=== PATIENT | female | born 1965 | race American Indian/Alaskan Native ===

== ENCOUNTER 2019-05-12 09:39 | Observation (INO) | payer MEDICAID, OTHER ==
[2019-05-12] MEDS ORDERED: ASPIRIN PO ONE (09:57)
[2019-05-12] MEDS ORDERED: CARDIZEM IV ONE (10:10)
[2019-05-12 10:32] LABS: Basophils % (Auto) 0.9 % (0.0-1.8); Eosinophils # (Auto) 0.2 K/mm3 (0.0-0.4); Eosinophils % (Auto) 3.3 % (0.0-4.3); Hematocrit 41.5 % (30.3-42.9); Hemoglobin 13.7 gm/dl (10.1-14.3); Mean Corpuscular HGB Conc 33 % (30-34); Mean Corpuscular Volume 90 fl (79-97); Monocytes # (Auto) 0.5 K/mm3 (0.0-0.8); Monocytes % (Auto) 8.7 % (0.0-7.3); Platelet Count 307 K/mm3 (140-440); Red Blood Count 4.61 M/mm3 (3.65-5.03); Red Cell Distribution Width 16.3 % (13.2-15.2)
--- NOTE | 2019-05-12 10:34 | Emergency Department Report ---
ED Palpitations HPI - General Chief Complaint: Arrhythmia/Palpitations Stated Complaint: HEART PALPITATION Time Seen by Provider: 05/12/19 10:04 Source: patient Mode of arrival: Ambulatory Limitations: No Limitations - History of Present Illness Initial Comments: Patient is a 53-year-old female with past history of hypertension who was having preop evaluation and [place] for neck surgery and was found to have atrial fibrillation. Patient was told to come to the emergency department yesterday however she wanted to wait it out and see if her symptoms were resolved did not. Patient states the past 2-3 weeks she's had intermittent palpitations. Patie nt's states she's had several episodes where she feels her heart is beating out of her chest and she has some chest tightness. Patient has associated shortness of breath. Denies nausea vomiting fevers chills, cold or congestion. Patient does state that she has palpitations currently. - Related Data Previous Rx's Medication Instructions Recorded Last Taken Type SEROquel 100 mg PO QHS #30 07/17/16 Unknown Rx Wellbutrin 150 mg PO DAILY #30 07/17/16 Unknown Rx diphenhydrAMINE [Benadryl CAP] 25 mg PO QHS PRN #30 capsule 07/17/16 Unknown Rx Allergies Allergy/AdvReac Type Severity Reaction Status Date / Time morphine Allergy Hives Verified 07/14/16 16:26 ED Review of Systems ROS: Stated complaint: HEART PALPITATION Other details as noted in HPI Comment: All other systems reviewed and negative ED Past Medical Hx - Past Medical History Previous Medical History?: Yes Hx Psychiatric Treatment: Yes (bipolar disorder) - Surgical History Past Surgical History?: Yes Additional Surgical History: shoulder - Social History Smoking Status: Never Smoker - Medications Home Medications: Home Medications Medication Instructions Recorded Confirmed Last Taken Type SEROquel 100 mg PO QHS #30 07/17/16 Unknown Rx Wellbutrin 150 mg PO DAILY #30 07/17/16 Unknown Rx diphenhydrAMINE [Benadryl CAP] 25 mg PO QHS PRN #30 capsule 07/17/16 Unknown Rx ED Physical Exam - General Limitations: No Limitations General appearance: alert, in no apparent distress - Head Head exam: Present: atraumatic, normocephalic - Eye Eye exam: Present: normal appearance, PERRL, EOMI - ENT ENT exam: Present: normal orophraynx, mucous membranes moist - Neck Neck exam: Present: normal inspection - Respiratory Respiratory exam: Present: normal lung sounds bilaterally. Absent: respiratory distress, wheezes, rales, rhonchi - Cardiovascular Cardiovascular Exam: Present: tachycardia, irregular rhythm. Absent: systolic murmur, diastolic murmur, rubs, gallop - GI/Abdominal GI/Abdominal exam: Present: soft, normal bowel sounds. Absent: distended, tend erness, guarding, rebound - Extremities Exam Extremities exam: Present: normal inspection - Back Exam Back exam: Present: normal inspection - Neurological Exam Neurological exam: Present: alert, oriented X3 - Psychiatric Psychiatric exam: Present: normal affect, normal mood - Skin Skin exam: Present: warm, dry, intact, normal color. Absent: rash ED Course Vital Signs 05/12/19 05/12/19 05/12/19 09:54 10:12 10:16 Temperature 97.7 F Pulse Rate 126 H Respiratory 18 Rate Blood Pressure 121/78 O2 Sat by Pulse 97 98 Oximetry 05/12/19 05/12/19 05/12/19 10:30 10:46 10:49 Temperature Pulse Rate 132 H 130 H 149 H Respiratory 16 9 L Rate Blood Pressure 116/92 116/92 102/64 O2 Sat by Pulse 98 99 Oximetry 05/12/19 11:00 Temperature Pulse Rate 78 Respiratory 12 Rate Blood Pressure 101/73 O2 Sat by Pulse 95 Oximetry ED Medical Decision Making - Lab Data Result diagrams: 05/12/19 10:05 05/12/19 10:05 Lab Results 05/12/19 05/12/19 05/12/19 Range/Units 10:05 10:05 10:12 WBC 5.4 (4.5-11.0) K/mm3 RBC 4.61 (3.65-5.03) M/mm3 Hgb 13.7 (10.1-14.3) gm/dl Hct 41.5 (30.3-42.9) % MCV 90 (79-97) fl MCH 30 (28-32) pg MCHC 33 (30-34) % RDW 16.3 H (13.2-15.2) % Plt Count 307 (140-440) K/mm3 Lymph % (Auto) 37.0 H (13.4-35.0) % [place] % (Auto) 8.7 H (0.0-7.3) % Eos % (Auto) 3.3 (0.0-4.3) % Baso % (Auto) 0.9 (0.0-1.8) % Lymph # 2.0 (1.2-5.4) K/mm3 [place] # 0.5 (0.0-0.8) K/mm3 Eos # 0.2 (0.0-0.4) K/mm3 Baso # 0.0 (0.0-0.1) K/mm3 Seg Neutrophils % 50.1 (40.0-70.0) % Seg Neutrophils # 2.7 (1.8-7.7) K/mm3 PT 12.4 (12.2-14.9) Sec. INR 0.95 (0.87-1.13) APTT 28.2 (24.2-36.6) Sec. Sodium 141 (137-145) mmol/L Potassium 3.8 (3.6-5.0) mmol/L Chloride 102.2 (98-107) mmol/L Carbon Dioxide 22 (22-30) mmol/L Anion Gap 21 mmol/L BUN 13 (7-17) mg/dL Creatinine 0.7 (0.7-1.2) mg/dL Estimated GFR > 60 ml/min BUN/Creatinine Ratio 19 % Glucose 121 H (65-100) mg/dL Calcium 9.1 (8.4-10.2) mg/dL Troponin T < 0.010 (0.00-0.029) ng/mL NT-Pro-B Natriuret Pep 535.8 (0-900) pg/mL - EKG Data 05/12/19 11:49 EKG shows atrial fibrillation with a rate of 126. [place] is normal intervals are otherwise normal. There are no ST segment elevations or depressions. Time of interpretation is not 52. - Radiology Data Radiology results: report reviewed (CXR WNL) - Medical Decision Making Patient is a 53-year-old black female who is presenting with palpitations. The patient was found to be in A. fib with RVR. Patient was given 20 of diltiazem which did drop her rate to between 80 and 100. Patient does state that her shortness of breath and palpitations do feel better. Spoke with up at [facility] with heart and they state that the patient should be admitted for observation to continue with rate control with oral diltiazem. Patient will be admitted to the hospitalist service under Dr. Sim. Critical Care Time: Yes (30) Critical care attestation.: If time is entered above; I have spent that time in minutes in the direct care of this critically ill patient, excluding procedure time. ED Disposition Clinical Impression: Atrial fibrillation with rapid ventricular response Disposition: OP ADMIT IP TO THIS HOSP Is pt being admited?: Yes Does the pt Need Aspirin: No Condition: Stable Time of Disposition: 11:54
--- NOTE | 2019-05-12 10:41 | XRay Report ---
CHEST 1 VIEW INDICATION: Chest Pain COMPARISON: None FINDINGS: Support devices: None Heart: Normal Lungs/Pleura: No acute pulmonary or pleural findings. IMPRESSION: 1. No significant abnormality Signer Name: Oumar Chou MD Signed: 05/12/2019 10:37 AM Workstation Name: [id number]
[2019-05-12 10:50] LABS: INR 0.95 (0.87-1.13); Partial Thromboplastin Time 28.2 Sec. (24.2-36.6)
[2019-05-12 11:02] LABS: BUN/Creatinine Ratio 19; Blood Urea Nitrogen 13 mg/dL (7-17); Calcium 9.1 mg/dL (8.4-10.2); Hemolysis Index 70
--- NOTE | 2019-05-12 12:04 | History and Physical Report ---
History of Present Illness Chief complaint: My heart is pounding History of present illness: 53 YO Female with Obesity, Bipolar Disorder presents to ED for evaluation. Pt states that she has experienced approximately 12 intermittent episodes of chest palpitations over the past 2 weeks as well as shortness of breath. Pt states that she was having preop evaluation and [place] for neck surgery and was found to have atrial fibrillation. Patient was instructed to seek further care at that time. Pt states that her symptoms have persisted and become more frequent overnight. Pt transported to [facility] via private vehicle. Pt transported to [facility] via private vehicle. Pt seen and evaluated in ED and found to have Atrial Fib with RVR as well as obesity Hypoventilation Syndrome. Pt admitted to telemetry. Cardiology consulted in ED. Pt denies fever, chills, CP, NVD, Trauma, Productive cough, skin rash, or recent ill contacts. No prior admission for review. All medication listed at time of admission has been reconciled. Past History Past Medical History: other (Obesity, bipolar disorder.) Past Surgical History: Other (Shoulder surgery) Social history: . denies: smoking, alcohol abuse, prescription drug abuse Family history: hypertension Medications and Allergies Allergies Allergy/AdvReac Type Severity Reaction Status Date / Time morphine Allergy Hives Verified 07/14/16 16:26 Home Medications Medication Instructions Recorded Confirmed Last Taken Type SEROquel 100 mg PO QHS #30 07/17/16 Unknown Rx Wellbutrin 150 mg PO DAILY #30 07/17/16 Unknown Rx diphenhydrAMINE [Benadryl CAP] 25 mg PO QHS PRN #30 capsule 07/17/16 Unknown Rx Active Meds: Active Medications Diltiazem HCl (Cardizem) 60 mg PO Q6HR DEMI Review of Systems Constitutional: no weight loss, no weight gain, no fever, no chills Ears, nose, mouth and throat: no ear pain, no ear discharge, no tinnitis, no decreased hearing, no nose pain, no nasal congestion, no nasal discharge Breasts: no change in shape, no mass Cardiovascular: palpitations, shortness of breath, no chest pain, no syncope, no lightheadedness, no claudication, no leg edema Respiratory: no cough, no cough with sputum, no excessive sputum, no hemoptysis, no shortness of breath Gastrointestinal: no nausea, no vomiting, no diarrhea, no constipation Genitourinary Female: no pelvic pain, no flank pain, no menorrhagia, no dysuria Rectal: no pain, no incontinence, no bleeding Musculoskeletal: no neck stiffness, no neck pain, no shooting arm pain, no arm numbness/tingling, no low back pain Integumentary: no rash, no pruritis, no sores, no wounds, no jaundice, no bliste rs Neurological: no head injury, no paralysis, no weakness, no parathesias, no numbness, no tingling, no syncope Psychiatric: no anxiety, no memory loss, no change in sleep habits, no sleep disturbances, no insomnia Endocrine: no cold intolerance, no heat intolerance, no polyphagia, no excessive thirst, no polydipsia, no polyuria, no nocturia Hematologic/Lymphatic: no easy bruising, no easy bleeding, no lymphadenopathy Allergic/Immunologic: no urticaria, no allergic rhinitis, no wheezing, no persistent infections, no anaphylaxis Exam - Constitutional Vitals: Temp Pulse Resp BP Pulse Ox 97.7 F 78 12 101/73 95 05/12/19 09:54 05/12/19 11:00 05/12/19 11:00 05/12/19 11:00 05/12/19 11:00 General appearance: Present: mild distress - EENT Eyes: Present: PERRL ENT: hearing intact, clear oral mucosa - Neck Neck: Present: supple, normal ROM - Respiratory Respiratory effort: normal Respiratory: bilateral: CTA - Cardiovascular Rhythm: irregularly irregular Heart Sounds: Present: S1 & S2. Absent: rub, click - Extremities Extremities: pulses symmetrical, No edema Peripheral Pulses: within normal limits - Abdominal General gastrointestinal: Present: soft, non-tender, non-distended, normal bowel sounds Female genitourinary: Present: normal - Integumentary Integumentary: Present: clear, warm, dry - Musculoskeletal Musculoskeletal: gait normal, strength equal bilaterally - Psychiatric Psychiatric: appropriate mood/affect, intact judgment & insight - Neurologic Neurologic: CNII-XII intact, moves all extremities Results - Labs CBC & Chem 7: 05/12/19 10:05 05/12/19 10:05 Labs: Abnormal lab results 05/12/19 05/12/19 Range/Units 10:05 10:05 RDW 16.3 H (13.2-15.2) % Lymph % (Auto) 37.0 H (13.4-35.0) % [place] % (Auto) 8.7 H (0.0-7.3) % Glucose 121 H (65-100) mg/dL Assessment and Plan - Patient Problems (1) Atrial fibrillation with rapid ventricular response Current Visit: No Status: Acute Plan to address problem: Cardiology consulted in ED, rate control with cardizem, supportive care. admit to telemetry. Anticoagulation as per cardiology team. (2) Obesity hypoventilation syndrome Current Visit: Yes Status: Acute Plan to address problem: Supplemental oxygen, nebulizer therapy, NIPPV as clinically indicated. pulse oximetry, (3) Bipolar disorder Current Visit: Yes Status: Acute Qualifiers: Current episode severity: unspecified Plan to address problem: Supportive care, continue medical management. (4) DVT prophylaxis Current Visit: Yes Status: Acute Plan to address problem: SCD to BLE while in bed, supportive care.
[2019-05-12] MEDS ORDERED: ZOFRAN IV PRN (12:05)
[2019-05-12] MEDS ORDERED: SODIUM CHLORIDE FLUSH SYRINGE 10 ML IV PRN (12:05)
[2019-05-12] MEDS ORDERED: TYLENOL PO PRN (12:05)
[2019-05-12] MEDS ORDERED: PROVENTIL IH PRN (12:05)
[2019-05-12] MEDS ORDERED: BENADRYL PO PRN (12:08)
[2019-05-12 13:01] LABS: Free T4 (Free Thyroxine) 1.19 ng/dL (0.76-1.46)
[2019-05-12] MEDS: CARDIZEM PO SCH ×2 (13:23→18:04)
[2019-05-12] MEDS ORDERED: CARDIZEM ONE (13:25)
[2019-05-12] MEDS: SODIUM CHLORIDE FLUSH SYRINGE 10 ML IV SCH (21:46)
[2019-05-12] MEDS ORDERED: NON-FORMULARY (Seroquel 100 MG) PO SCH (22:00)
[2019-05-13] MEDS: CARDIZEM PO SCH ×2 (00:12→06:28)
[2019-05-13 06:04] LABS: Basophils # (Auto) 0.1 K/mm3 (0.0-0.1); Basophils % (Auto) 1.3 % (0.0-1.8); Eosinophils # (Auto) 0.2 K/mm3 (0.0-0.4); Eosinophils % (Auto) 3.4 % (0.0-4.3); Hematocrit 38.9 % (30.3-42.9); Hemoglobin 12.7 gm/dl (10.1-14.3); Lymphocytes # (Auto) 1.5 K/mm3 (1.2-5.4); Lymphocytes % (Auto) 31.7 % (13.4-35.0); Mean Corpuscular HGB Conc 33 % (30-34); Mean Corpuscular Volume 90 fl (79-97); Monocytes # (Auto) 0.3 K/mm3 (0.0-0.8); Monocytes % (Auto) 7.3 % (0.0-7.3); Platelet Count 257 K/mm3 (140-440); Red Blood Count 4.33 M/mm3 (3.65-5.03); Red Cell Distribution Width 16.1 % (13.2-15.2)
[2019-05-13 06:10] LABS: Alanine Aminotransferase 25 units/L (7-56); Albumin 3.5 g/dL (3.9-5); BUN/Creatinine Ratio 18; Blood Urea Nitrogen 11 mg/dL (7-17); Calcium 8.9 mg/dL (8.4-10.2); Hemolysis Index 13
--- NOTE | 2019-05-13 07:58 | Progress Note ---
Assessment and Plan Assessment and plan: 53 YO Female with Obesity, Bipolar Disorder presents to ED for evaluation. Pt states that she has experienced approximately 12 intermittent episodes of chest palpitations over the past 2 weeks as well as shortness of breath. Pt states that she was having preop evaluation and [place] for neck surgery and was found to have atrial fibrillation. Patient was instructed to seek further care at that time. Pt states that her symptoms have persisted and become more frequent overnight. Pt transported to [facility] via private vehicle. Pt transported to [facility] via private vehicle. Pt seen and evaluated in ED and found to have Atrial Fib with RVR as well as obesity Hypoventilation Syndrome. Pt admitted to telemetry. Ca rdiology consulted in ED. Pt denies fever, chills, CP, NVD, Trauma, Productive cough, skin rash, or recent ill contacts. No prior admission for review. All medication listed at time of admission has been reconciled. chest xray is negative Atrial fibrillation with rapid ventricular response * Initiated on cardizem from ER, will increase to 90mg q8hr for better control * Await Cardiology input, obtain Echo. * Defer Anticoagulation to cardiology. Dyspnea * Secondary to Afib. Obesity hypoventilation syndrome * Supplemental oxygen, nebulizer therapy, NIPPV as clinically indicated. pulse oximetry, Bipolar disorder * Supportive care, continue medical management. DVT/GI prophylaxis/Mobility Protocol Current Visit: Yes Status: Acute Plan to address problem: SCD to BLE while in bed, supportive care. 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 Patient with no new complaints today Hospitalist Physical - Constitutional Vitals: Temp Pulse Resp BP Pulse Ox 97.5 F L 105 H 20 110/68 98 05/13/19 05:11 05/13/19 06:28 05/13/19 05:11 05/13/19 06:28 05/13/19 05:11 General appearance: Present: no acute distress, well-nourished, obese - EENT Eyes: Present: PERRL, EOM intact ENT: clear oral mucosa, dentition normal - Neck Neck: Present: supple, normal ROM - Respiratory Respiratory effort: normal Respiratory: bilateral: CTA - Cardiovascular Rhythm: irregularly irregular Heart Sounds: Present: S1 & S2. Absent: systolic murmur, diastolic murmur - Extremities Extremities: no ischemia, pulses intact, pulses symmetrical, No edema, normal temperature, normal color, Full ROM Peripheral Pulses: within normal limits - Abdominal General gastrointestinal: soft, non-tender, non-distended, normal bowel sounds - Integumentary Integumentary: Present: warm (MULTIPLE TATTOO), dry - Psychiatric Psychiatric: appropriate mood/affect, intact judgment & insight, memory intact, cooperative - Neurologic Neurologic: CNII-XII intact, moves all extremities - Allied Health Allied health notes reviewed: nursing Results - Labs CBC & Chem 7: 05/13/19 05:16 05/13/19 05:16 Labs: Laboratory Last Values WBC 4.6 K/mm3 (4.5-11.0) 05/13/19 05:16 RBC 4.33 M/mm3 (3.65-5.03) 05/13/19 05:16 Hgb 12.7 gm/dl (10.1-14.3) 05/13/19 05:16 Hct 38.9 % (30.3-42.9) 05/13/19 05:16 MCV 90 fl (79-97) 05/13/19 05:16 MCH 29 pg (28-32) 05/13/19 05:16 MCHC 33 % (30-34) 05/13/19 05:16 RDW 16.1 % (13.2-15.2) H 05/13/19 05:16 Plt Count 257 K/mm3 (140-440) 05/13/19 05:16 Lymph % (Auto) 31.7 % (13.4-35.0) 05/13/19 05:16 [place] % (Auto) 7.3 % (0.0-7.3) 05/13/19 05:16 Eos % (Auto) 3.4 % (0.0-4.3) 05/13/19 05:16 Baso % (Auto) 1.3 % (0.0-1.8) 05/13/19 05:16 Lymph # 1.5 K/mm3 (1.2-5.4) 05/13/19 05:16 [place] # 0.3 K/mm3 (0.0-0.8) 05/13/19 05:16 Eos # 0.2 K/mm3 (0.0-0.4) 05/13/19 05:16 Baso # 0.1 K/mm3 (0.0-0.1) 05/13/19 05:16 Seg Neutrophils % 56.3 % (40.0-70.0) 05/13/19 05:16 Seg Neutrophils # 2.6 K/mm3 (1.8-7.7) 05/13/19 05:16 PT 12.4 Sec. (12.2-14.9) 05/12/19 10:12 INR 0.95 (0.87-1.13) 05/12/19 10:12 APTT 28.2 Sec. (24.2-36.6) 05/12/19 10:12 Sodium 141 mmol/L (137-145) 05/13/19 05:16 Potassium 3.4 mmol/L (3.6-5.0) L 05/13/19 05:16 Chloride 104.0 mmol/L (98-107) 05/13/19 05:16 Carbon Dioxide 25 mmol/L (22-30) 05/13/19 05:16 15 mmol/L 05/13/19 05:16 BUN 11 mg/dL (7-17) 05/13/19 05:16 0.6 mg/dL (0.7-1.2) L 05/13/19 05:16 Estimated GFR > 60 ml/min 05/13/19 05:16 18 % 05/13/19 05:16 Glucose 129 mg/dL (65-100) H 05/13/19 05:16 Calcium 8.9 mg/dL (8.4-10.2) 05/13/19 05:16 Magnesium 2.10 mg/dL (1.7-2.3) 05/12/19 10:02 0.20 mg/dL (0.1-1.2) 05/13/19 05:16 AST 25 units/L (5-40) 05/13/19 05:16 ALT 25 units/L (7-56) 05/13/19 05:16 71 units/L (35-129) 05/13/19 05:16 < 0.010 ng/mL (0.00-0.029) 05/12/19 15:07 NT-Pro-B Natriuret Pep 535.8 pg/mL (0-900) 05/12/19 10:05 6.8 g/dL (6.3-8.2) 05/13/19 05:16 3.5 g/dL (3.9-5) L 05/13/19 05:16 1.1 % 05/13/19 05:16 TSH 2.490 mlU/mL (0.270-4.200) 05/12/19 12:14 Free T4 1.19 ng/dL (0.76-1.46) 05/12/19 12:14 Active Medications - Current Medications Current Medications: Generic Name Dose Route Start Last Admin Trade Name Freq PRN Reason Stop Dose Admin Acetaminophen 650 mg 05/12/19 12:05 Tylenol PO Q4H PRN Pain MILD(1-3)/Fever >100.5/[place] Albuterol 2.5 mg 05/12/19 12:05 Proventil IH Q4HRT PRN Shortness Of Breath Bupropion HCl 150 mg 05/13/19 10:00 Wellbutrin Xl PO QDAY DEMI Diltiazem HCl 90 mg 05/13/19 08:00 Cardizem PO Q8H DEMI Diphenhydramine HCl 25 mg 05/12/19 12:08 Benadryl PO QHS PRN Insomnia Ondansetron HCl 4 mg 05/12/19 12:05 Zofran IV Q8H PRN Nausea And Vomiting Quetiapine Fumarate 100 mg 05/12/19 22:00 05/12/19 21:46 Seroquel PO 100 mg QHS DEMI Administration Sodium Chloride 10 ml 05/12/19 22:00 05/12/19 21:46 Sodium Chloride Flush Syringe 10 Ml IV 10 ml BID DEMI Administration Sodium Chloride 10 ml 05/12/19 12:05 Sodium Chloride Flush Syringe 10 Ml IV PRN PRN LINE FLUSH
[2019-05-13] MEDS ORDERED: CARDIZEM PO SCH ×3 (08:00→14:00)
[2019-05-13] MEDS ORDERED: K-DUR PO ONE (09:11)
[2019-05-13] MEDS ORDERED: CARDIZEM PO NR (09:26)
[2019-05-13] MEDS ORDERED: K-DUR PO NR (09:26)
[2019-05-13] MEDS ORDERED: K-DUR PO SCH (10:00)
[2019-05-13] MEDS ORDERED: WELLBUTRIN XL PO SCH (10:00)
[2019-05-13] MEDS ORDERED: WELLBUTRIN 150 MG PO SCH (10:00)
[2019-05-13] MEDS: SODIUM CHLORIDE FLUSH SYRINGE 10 ML IV SCH (11:42)
[2019-05-13 13:36] VITALS: BP 139/81
--- NOTE | 2019-05-13 13:52 | Discharge Summary ---
Providers - Providers Date of Admission: 05/12/19 12:05 Attending physician: MARCIN FINCH MD 05/12/19 12:01 Consult to Physician [CONS] Urgent Comment: Consulting Provider: ARIADNA YANEZ Physician Instructions: Reason For Exam: afib with RVR [facility] Condition: Stable Exam - Constitutional Vitals: Temp Pulse Resp BP Pulse Ox 98.2 F 92 H 50 H 139/81 98 05/13/19 12:56 05/13/19 13:00 05/13/19 12:56 05/13/19 12:56 05/13/19 12:56 Plan Follow up with: ARIADNA YANEZ MD [Staff Physician] - 7 Days WASHINGTON MORENO ESCOTO MD [Primary Care Provider] - 7 Days Prescriptions: Diltiazem HCl [Cardizem Cd] 300 mg PO DAILY #30 cap.er.24h Apixaban [Eliquis] 5 mg PO BID #60 tablet QUEtiapine [SEROquel] 100 mg PO QDAY #30 tab buPROPion XL [Wellbutrin Xl] 150 mg PO QAM #30 tab.er.24h
--- NOTE | 2019-05-13 13:54 | Consultation ---
History of Present Illness Consult date: 05/13/19 Consult reason: atrial fibrillation History of present illness: Impression Post-op Afib, symptomatic now improved no prior history of cardiomyopathy HTN Plan HR controlled on diltiazem, she is now asymptomatic Echo EF >55% , no significant valvular disease recommend cont diltiazem replete K for hypokalemia start eliquis for anticoagulation ok to go home f/u 2 weeks Past History Past Medical History: hypertension, other (Obesity, bipolar disorder.) Past Surgical History: Other (Shoulder surgery) Social history: . denies: smoking, alcohol abuse, prescription drug abuse Family history: hypertension Medications and Allergies Allergies Allergy/AdvReac Type Severity Reaction Status Date / Time morphine Allergy Hives Verified 07/14/16 16:26 Home Medications Medication Instructions Recorded Confirmed Last Taken Type oxyCODONE /ACETAMINOPHEN 5 mg PO 05/12/19 05/06/19 08:00 History Apixaban [Eliquis] 5 mg PO Q12HR #30 tablet 05/13/19 Unknown Rx Diltiazem HCl [Cardizem Cd] 300 mg PO DAILY #30 cap.er.24h 05/13/19 Unknown Rx QUEtiapine [SEROquel] 100 mg PO QHS tablet 05/13/19 Unknown Rx buPROPion XL [Wellbutrin XL] 150 mg PO QDAY tablet 05/13/19 Unknown Rx diphenhydrAMINE [Benadryl CAP] 25 mg PO QHS PRN capsule 05/13/19 Unknown Rx Active Meds: Active Medications Acetaminophen (Tylenol) 650 mg PO Q4H PRN PRN Reason: Pain MILD(1-3)/Fever >100.5/[place] Albuterol (Proventil) 2.5 mg IH Q4HRT PRN PRN Reason: Shortness Of Breath Apixaban (Eliquis) 5 mg PO Q12HR DEMI; Protocol Bupropion HCl (Wellbutrin Xl) 150 mg PO QDAY DEMI Last Admin: 05/13/19 11:40 Dose: 150 mg Documented by: Diltiazem HCl (Cardizem) 90 mg PO Q8H DEMI Last Admin: 05/13/19 09:48 Dose: 90 mg Documented by: Diphenhydramine HCl (Benadryl) 25 mg PO QHS PRN PRN Reason: Insomnia Ondansetron HCl (Zofran) 4 mg IV Q8H PRN PRN Reason: Nausea And Vomiting Quetiapine Fumarate (Seroquel) 100 mg PO QHS [facility] Last Admin: 05/12/19 21:46 Dose: 100 mg Documented by: Sodium Chloride (Sodium Chloride Flush Syringe 10 Ml) 10 ml IV BID [facility] Last Admin: 05/13/19 11:42 Dose: 10 ml Documented by: Sodium Chloride (Sodium Chloride Flush Syringe 10 Ml) 10 ml IV PRN PRN PRN Reason: LINE FLUSH Physical Examination Vital Signs Temp Pulse Resp BP 97.7 F 126 H 18 121/78 05/12/19 09:54 05/12/19 09:54 05/12/19 09:54 05/12/19 09:54 General appearance: no acute distress HEENT: Positive: PERRL Neck: Positive: neck supple Cardiac: Positive: S1/S2 Lungs: Positive: Normal Exam Abdomen: Positive: Unremarkable Extremities: Absent: edema Results 05/13/19 05:16 05/13/19 05:16 Cardiac Enzymes 05/13/19 Range/Units 05:16 AST 25 (5-40) units/L CBC 05/13/19 Range/Units 05:16 WBC 4.6 (4.5-11.0) K/mm3 RBC 4.33 (3.65-5.03) M/mm3 Hgb 12.7 (10.1-14.3) gm/dl Hct 38.9 (30.3-42.9) % Plt Count 257 (140-440) K/mm3 Lymph # 1.5 (1.2-5.4) K/mm3 [place] # 0.3 (0.0-0.8) K/mm3 Eos # 0.2 (0.0-0.4) K/mm3 Baso # 0.1 (0.0-0.1) K/mm3 Comprehensive Metabolic Panel 05/13/19 Range/Units 05:16 Sodium 141 (137-145) mmol/L Potassium 3.4 L (3.6-5.0) mmol/L Chloride 104.0 (98-107) mmol/L Carbon Dioxide 25 (22-30) mmol/L BUN 11 (7-17) mg/dL Creatinine 0.6 L (0.7-1.2) mg/dL Glucose 129 H (65-100) mg/dL Calcium 8.9 (8.4-10.2) mg/dL AST 25 (5-40) units/L ALT 25 (7-56) units/L Alkaline Phosphatase 71 (35-129) units/L Total Protein 6.8 (6.3-8.2) g/dL Albumin 3.5 L (3.9-5) g/dL
[2019-05-13] MEDS ORDERED: ELIQUIS PO SCH (15:00)
== END 2019-05-13 15:00 | disposition home or self-care (01) ==
LOC: ED 09:39 → 4A 12:05
PROVIDERS: ADMIT Internal Medicine; ATTEND Internal Medicine
DX: I48.2 Chronic atrial fibrillation (principal); R06.00 Dyspnea, unspecified; E66.2 Morbid (severe) obesity with alveolar hypoventilation; F31.9 Bipolar disorder, unspecified; I10 Essential (primary) hypertension; Z68.39 Body mass index [BMI] 39.0-39.9, adult
CPT/HCPCS: 36415; 71045; 80048; 80053; 83735; 83880; 84439; 84443; 84484; 85025; 85610; 85730; 93005; 93010; 93306; 94640; 96374; 99291; G0378

== ENCOUNTER 2021-09-15 14:13 | Emergency (ER) | payer MEDICAID | END 2021-09-15 16:30 | disposition left against medical advice (07) | LOC: ED 14:13 | DX: M54.50 Low back pain, unspecified (principal); Z53.21 Procedure and treatment not carried out due to patient leaving prior to being seen by health care provider ==

== ENCOUNTER 2022-02-13 18:50 | Inpatient (IN) | payer MEDICARE ==
[2022-02-13] MEDS ORDERED: fentaNYL 100 MCG/2 ML INJ IV ONE (19:09)
[2022-02-13] MEDS ORDERED: ASPIRIN 325 MG TAB PO ONE (19:09)
[2022-02-13] MEDS ORDERED: NITROGLYCERIN 2% OINT 1 GM TP ONE (19:09)
[2022-02-13] MEDS ORDERED: ONDANSETRON 4 MG/2 ML INJ IV ONE (19:09)
--- NOTE | 2022-02-13 19:31 | Emergency Department Report ---
HPI - HPI HPI: Room 7 The patient is a 56-year-old female present with chief complaint of chest pain. Patient states approximate 40 prior to arrival she developed substernal chest pain described as a tightness associated with some shortness of breath. Patient denies nausea/vomiting or diaphoresis. Patient currently gives her pain a score of 10/10. Patient states her last stress test occurred approximate 2 years ago but she has never had a cardiac catheterization. Patient states she has currently on any anticoagulation <SORAYA LONG - Last Filed: 02/13/22 20:16> <FELECIA TOSCANO - Last Filed: 02/13/22 21:45> - General Chief Complaint: Chest Pain ED Past Medical Hx - Past Medical History Hx Diabetes: Yes Hx Psychiatric Treatment: Yes (bipolar disorder) Hx Asthma: Yes Additional medical history: Atrial fibrillation - Surgical History Additional Surgical History: shoulder - Family History Family history: no significant - Social History Smoking Status: Never Smoker Substance Use Type: None <SORAYA LONG - Last Filed: 02/13/22 20:16> <FELECIA TOSCANO - Last Filed: 02/13/22 21:45> - Medications Home Medications: Home Medications Medication Instructions Recorded Confirmed Last Taken Type oxyCODONE /ACETAMINOPHEN 5 mg PO 05/12/19 05/06/19 08:00 History Apixaban [Eliquis] 5 mg PO BID #60 tablet 05/13/19 Unknown Rx Diltiazem HCl [Cardizem Cd] 300 mg PO DAILY #30 cap.er.24h 05/13/19 Unknown Rx QUEtiapine [SEROquel] 100 mg PO QDAY #30 tab 05/13/19 Unknown Rx buPROPion XL [Wellbutrin Xl] 150 mg PO QAM #30 tab.er.24h 05/13/19 Unknown Rx diphenhydrAMINE [Benadryl CAP] 25 mg PO QHS PRN capsule 05/13/19 Unknown Rx ED Review of Systems ROS: Stated complaint: CHEST PAINS Other details as noted in HPI Constitutional: denies: diaphoresis Eyes: denies: eye pain ENT: denies: throat pain Respiratory: shortness of breath Cardiovascular: chest pain Endocrine: no symptoms reported Gastrointestinal: denies: nausea, vomiting Genitourinary: denies: dysuria Musculoskeletal: denies: back pain Neurological: denies: headache <APRILBoogieSORAYA Alex - Last Filed: 02/13/22 20:16> ROS: Stated complaint: CHEST PAINS Other details as noted in HPI <FELECIA TOSCANO - Last Filed: 02/13/22 21:45> Physical Exam - Physical Exam Vital Signs: Vital Signs 02/13/22 19:03 Temperature 97.3 F L Pulse Rate 64 Respiratory 22 Rate Blood Pressure 121/84 [Right] O2 Sat by Pulse 97 Oximetry Physical Exam: GENERAL: The patient is well-developed well-nourished female sitting in chair appearing to be in moderate discomfort. [] HEENT: Normocephalic. Atraumatic. Extraocular motions are intact. Patient has moist mucous membranes. NECK: Supple. Trachea midline CHEST/LUNGS: Clear to auscultation. There is no respiratory distress noted. HEART/CARDIOVASCULAR: Regular. There is no tachycardia. There is no gallop rub or murmur. ABDOMEN: Abdomen is soft, nontender. Patient has normal bowel sounds. There is no abdominal distention. SKIN: There is no rash. There is no edema. There is no diaphoresis. NEURO: The patient is awake, alert, and oriented. The patient is cooperative. The patient has no focal neurologic deficits. The patient has normal speech. GCS 15 MUSCULOSKELETAL: There is no evidence of acute injury. <APRILBoogieSORAYA Alex - Last Filed: 02/13/22 20:16> - Physical Exam Vital Signs: Vital Signs 02/13/22 02/13/22 02/13/22 19:03 20:01 20:02 Temperature 97.3 F L Pulse Rate 64 63 68 Respiratory 22 20 Rate Blood Pressure 122/72 85/56 Blood Pressure 121/84 [Right] O2 Sat by Pulse 97 97 Oximetry 02/13/22 20:57 Temperature 98 F Pulse Rate 72 Respiratory Rate Blood Pressure Blood Pressure 100/67 [Right] O2 Sat by Pulse Oximetry <FELECIA TOSCANO - Last Filed: 02/13/22 21:45> ED Course Vital Signs 02/13/22 19:03 Temperature 97.3 F L Pulse Rate 64 Respiratory 22 Rate Blood Pressure 121/84 [Right] O2 Sat by Pulse 97 Oximetry - Consultations Consultation #1: 02/13/22 19:30 EKG sent to and discussed with group art supervisor Dr. Ramos- No Stemi. Bring patient back to a room and medicate, repeat EKG and see if there is any change 02/13/22 20:08 Repeat EKG sent to and discussed with group art supervisor Dr. Ramos-we will treat for ACS with failure medical treatment. Have nursing supervisorcall in the Cath team for stat cardiac catheterization, initiate heparin <SORAYA LONG - Last Filed: 02/13/22 20:16> Vital Signs 02/13/22 02/13/22 02/13/22 19:03 20:01 20:02 Temperature 97.3 F L Pulse Rate 64 63 68 Respiratory 22 20 Rate Blood Pressure 122/72 85/56 Blood Pressure 121/84 [Right] O2 Sat by Pulse 97 97 Oximetry 02/13/22 20:57 Temperature 98 F Pulse Rate 72 Respiratory Rate Blood Pressure Blood Pressure 100/67 [Right] O2 Sat by Pulse Oximetry <FELECIA TOSCANO - Last Filed: 02/13/22 21:45> ED Medical Decision Making - Lab Data Result diagrams: 02/13/22 19:18 02/13/22 19:18 - EKG Data -: EKG Interpreted by Me EKG shows normal: sinus rhythm Rate: normal - EKG Data When compared to previous EKG there are: previous EKG unavailable - Radiology Data Radiology results: report reviewed (Chest x-ray), image reviewed (Chest x-ray) interpreted by me: Chest x-ray-no definite focal infiltrates, no pneumothorax [address] [address] XRay Report Signed Patient: LIBRADO ENRIQUEZ MR#: [id number] : 1965 Acct:[id number] Age/Sex: 56 / F ADM Date: 02/13/22 Loc: ED Attending Dr: Ordering Physician: SORAYA LONG MD Date of Service: 02/13/22 Procedure(s): XR chest 1V ap Accession Number(s): [id number] cc: SORAYA LONG MD Fluoro Time In Minutes: CHEST 1 VIEW INDICATION / CLINICAL INFORMATION: chest pain. COMPARISON: 05/12/2019 FINDINGS: SUPPORT DEVICES: None. HEART / MEDIASTINUM: No significant abnormality. LUNGS / PLEURA: No significant pulmonary or pleural abnormality. No pneumothorax. ADDITIONAL FINDINGS: No significant additional findings. IMPRESSION: 1. No acute findings. Signer Name: Sedrick Navarrete MD Signed: 02/03 7:52 PM Workstation Name: [id number] Transcribed By: SB Dictated By: SEDRICK NAVARRETE MD Electronically Authenticated By: SEDRICK NAVARRETE MD Signed Date/Time: 02/13/221951 DD/ 51 TD/TT: - Differential Diagnosis ACS, pericarditis, GERD <SORAYA LONG - Last Filed: 02/13/22 20:16> - Lab Data Result diagrams: 02/13/22 19:18 02/13/22 19:18 - Medical Decision Making Patient is in the [facility]illing Plan[facility] Operator now. I discussed the patient with Dr. Yee, he agreed to admit the patient to medical service for further management. <FELECIA TOSCANO - Last Filed: 02/13/22 21:45> Critical care attestation.: If time is entered above; I have spent that time in minutes in the direct care of this critically ill patient, excluding procedure time. <SORAYA LONG - Last Filed: 02/13/22 20:16> Critical Care Time: Yes Critical care time in (mins) excluding proc time.: 35 Critical care attestation.: If time is entered above; I have spent that time in minutes in the direct care of this critically ill patient, excluding procedure time. <FELECIA TOSCANO - Last Filed: 02/13/22 21:45> ED Disposition Is pt being admited?: Yes Does the pt Need Aspirin: Yes Time of Disposition: 20:18 (Care transferred to hospitalist (Dr. Sim)) <SORAYA LONG - Last Filed: 02/13/22 20:16> <FELECIA TOSCANO - Last Filed: 02/13/22 21:45> Clinical Impression: Acute coronary syndrome Disposition: ADMITTED INPATIENT Condition: Fair Instructions: Nonspecific Chest Pain, Adult Heart Score - HEART Score History: Highly suspicious EKG: Non-specific Age: 45-65 Risk factors: 1-2 risk factors Troponin: < normal limit HEART Score: 5 - EKG Read Time Time EKG Completed: 18:54 EKG Read Time: 19:01 <SORAYA LONG - Last Filed: 02/13/22 20:16>
[2022-02-13 19:37] LABS: Basophils # (Auto) 0.1 K/mm3 (0.0-0.1); Basophils % (Auto) 0.4 % (0.0-1.8); Eosinophils # (Auto) 0.1 K/mm3 (0.0-0.4); Eosinophils % (Auto) 0.5 % (0.0-4.3); Hemoglobin 15.1 gm/dl (10.1-14.3); Lymphocytes % (Auto) 16.2 % (13.4-35.0); Mean Corpuscular HGB Conc 32 % (30-34); Mean Corpuscular Volume 88 fl (79-97); Monocytes # (Auto) 0.8 K/mm3 (0.0-0.8); Monocytes % (Auto) 6.5 % (0.0-7.3); Platelet Count 360 K/mm3 (140-440); Red Blood Count 5.36 M/mm3 (3.65-5.03); Red Cell Distribution Width 17.3 % (13.2-15.2)
[2022-02-13] MEDS ORDERED: NITROGLYCERIN 0.4 MG TAB SUBL SL PRN ×2 (19:47→22:10)
[2022-02-13] MEDS ORDERED: NITROGLYCERIN 0.4 MG TAB SUBL SL ONE (19:48)
--- NOTE | 2022-02-13 19:57 | XRay Report ---
CHEST 1 VIEW INDICATION / CLINICAL INFORMATION: chest pain. COMPARISON: 05/12/2019 FINDINGS: SUPPORT DEVICES: None. HEART / MEDIASTINUM: No significant abnormality. LUNGS / PLEURA: No significant pulmonary or pleural abnormality. No pneumothorax. ADDITIONAL FINDINGS: No significant additional findings. IMPRESSION: 1. No acute findings. Signer Name: Sedrick Navarrete MD Signed: 02/13/2022 7:52 PM Workstation Name: [id number]
[2022-02-13] MEDS ORDERED: SODIUM CHLORIDE 0.9% 1000 ML 1,000 ML IV ONE (19:58)
[2022-02-13 19:59] LABS: INR 0.93 (0.87-1.13)
[2022-02-13 20:02] LABS: Creatine Kinase MB 2.2 ng/mL (0.0-4.0)
[2022-02-13 20:03] LABS: BUN/Creatinine Ratio 6; Blood Urea Nitrogen 9 mg/dL (7-17); Calcium 9.5 mg/dL (8.4-10.2); Hemolysis Index 7
[2022-02-13] MEDS ORDERED: HEPARIN 10,000 UNITS/10 ML VIAL IV PRN (20:13)
[2022-02-13] MEDS ORDERED: HEPARIN 10,000 UNITS/10 ML VIAL IV ONE (20:13)
[2022-02-13] MEDS: HEPARIN/ 0.45% NACL DRIP 25,000 UNIT/500 ML BAG IV SCH (20:52)
[2022-02-13] MEDS ORDERED: MIDAZOLAM 2 MG/2 ML INJ ONE (20:53)
[2022-02-13] MEDS ORDERED: HEPARIN/NS 5000 UNIT/500ML 1,000 ML IR ONE (20:53)
[2022-02-13] MEDS ORDERED: LIDOCAINE (2%) 20 MG/1 ML VIAL 50 ML MDV INFILTRATI ONE (20:54)
[2022-02-13] MEDS ORDERED: LIDOCAINE (1%) 10 MG/1 ML VIAL 20 ML MDV ONE (20:54)
[2022-02-13] MEDS: NITROGLYCERIN SYRINGE 3 ML ONE ×2 (21:14→23:23)
[2022-02-13] MEDS: HEPARIN 10,000 UNITS/10 ML VIAL ONE ×4 (21:14→23:26)
[2022-02-13] MEDS: VERAPAMIL 5 MG/2 ML INJ ONE ×2 (21:14→23:27)
[2022-02-13] MEDS: TIROFIBAN/NS 12,500 MCG/250 ML BAG IV ONE ×2 (21:25→23:15)
[2022-02-13] MEDS: fentaNYL 100 MCG/2 ML INJ ONE ×3 (21:42→22:00)
[2022-02-13] MEDS ORDERED: NITROGLYCERIN SYRINGE 3 ML ONE (21:55)
[2022-02-13] MEDS: NITROGLYCERIN DRIP 50 MG/250 ML BOTTLE ONE ×2 (21:57→23:13)
[2022-02-13] MEDS ORDERED: CLOPIDOGREL 300 MG TAB ONE (22:02)
[2022-02-13] MEDS ORDERED: ALUM-MAG HYDROXIDE-SIMETHICONE 200-200-20MG/5ML ORAL LIQD 30 ML ONE (22:03)
[2022-02-13] MEDS ORDERED: ACETAMINOPHEN 325 MG TAB PO PRN ×4 (22:10→23:11)
[2022-02-13] MEDS ORDERED: HYDROmorphone 0.5 MG/0.5 ML INJ IV PRN ×5 (22:10→23:11)
[2022-02-13] MEDS ORDERED: traMADol 50 MG TAB PO PRN (22:10)
[2022-02-13] MEDS ORDERED: MAGNESIUM HYDROXIDE (MOM) ORAL LIQD UDC PO PRN (22:10)
[2022-02-13] MEDS ORDERED: DEXTROSE 50% IN WATER (25GM) 50 ML SYRINGE IV PRN (22:10)
[2022-02-13] MEDS ORDERED: SODIUM CHLORIDE 0.9% 1000 ML 1,000 ML ONE (22:20)
[2022-02-13] MEDS ORDERED: NITROGLYCERIN DRIP 50 MG/250 ML BOTTLE IV ONE (22:28)
[2022-02-13] MEDS ORDERED: SODIUM CHLORIDE 0.9% 1000 ML 1,000 ML IV SCH (22:30)
--- NOTE | 2022-02-13 22:45 | Consultation ---
History of Present Illness Consult date: 02/13/22 Requesting physician: SORAYA LONG Consult reason: chest pain History of present illness: 56-year-old female with obesity proximal A. fib on flecainide (follows with dr jenny whiting with [facility]) diabetes who presents with midsternal chest discomfort rating into her left arm. Initial EKG was not diagnostic for acute PR. Patient was treated with nitroglycerin aspirin and pain medications and repeat EKG showed EKG changes in inferior lead despite medical therapy patient was brought to the cardiac Paperboard Boxes Estimator for unstable angina refractory to medication. Left heart cath revealed RCA small nondominant. Mild to moderate LV dysfunction with anterior apical inferior apical hypokinesis with left main large and patent LAD is a large Vessel patent sluggish flow diagonal 1 diagonal 2 patent circumflex is a dominant vessel proximal to mid patent OM1 OM 2 patent L PDA is a small vessel but occluded. Attempted multiple times for balloon angioplasty but is too small for stenting and only was able to restore KANDICE I flow despite multiple attempts. Patient is placed on IV heparin IV Aggrastat IV nitro and treat medically. Pat sindi denies any fever chills no symptoms prior to the to this admission of chest pain or shortness of breath. Patient has not been vaccinated for COVID-19. Denies any fever chills or cough. Patient states not being on oral anticoagulation Past History Past Medical History: atrial fib (Proximal), diabetes Past Surgical History: denies: No surgical history Social history: no significant social history, other (Marijuana use) Family history: no significant family history Medications and Allergies Allergies Allergy/AdvReac Type Severity Reaction Status Date / Time morphine Allergy Hives Verified 02/13/22 19:05 Home Medications Medication Instructions Recorded Confirmed Last Taken Type oxyCODONE /ACETAMINOPHEN 5 mg PO 05/12/19 05/06/19 08:00 History Apixaban [Eliquis] 5 mg PO BID #60 tablet 05/13/19 Unknown Rx Diltiazem HCl [Cardizem Cd] 300 mg PO DAILY #30 cap.er.24h 05/13/19 Unknown Rx QUEtiapine [SEROquel] 100 mg PO QDAY #30 tab 05/13/19 Unknown Rx buPROPion XL [Wellbutrin Xl] 150 mg PO QAM #30 tab.er.24h 05/13/19 Unknown Rx diphenhydrAMINE [Benadryl CAP] 25 mg PO QHS PRN capsule 05/13/19 Unknown Rx Active Meds: Active Medications Acetaminophen (Acetaminophen 325 Mg Tab) 650 mg PO Q6H PRN PRN Reason: Pain, Mild (1-3) Hydrocodone Bitart/Acetaminophen (Hydrocodone/Acetaminophen 5-325 Mg Tab) 1 each PO Q6H PRN PRN Reason: Pain, Moderate (4-6) Aspirin (Aspirin Ec 325 Mg Tab) 325 mg PO QDAY DEMI Aspirin (Aspirin 81 Mg Tab Chew) 81 mg PO QDAY DEIM Atorvastatin Calcium (Atorvastatin 40 Mg Tab) 80 mg PO QHS DEMI Clopidogrel Bisulfate (Clopidogrel 75 Mg Tab) 75 mg PO QDAY DEMI Dextrose (Dextrose 50% In Water (25gm) 50 Ml Syringe) 0 ml IV Q30MIN PRN; Protocol PRN Reason: Hypoglycemia Heparin Sodium (Porcine) (Heparin 10,000 Units/10 Ml Vial) 4,200 unit 40 unit/kg (4200 unit) IV Q6H PRN PRN Reason: Anti-Xa Assay<0.1 units/ml Hydromorphone HCl (Hydromorphone 0.5 Mg/0.5 Ml Inj) 0.25 mg IV Q3H PRN PRN Reason: Pain, Moderate (4-6) Hydromorphone HCl (Hydromorphone 0.5 Mg/0.5 Ml Inj) 0.5 mg IV Q3H PRN PRN Reason: Pain , Severe (7-10) Hydromorphone HCl (Hydromorphone 0.5 Mg/0.5 Ml Inj) 0.25 mg IV Q5MIN PRN PRN Reason: Chest Pain Heparin Sodium/Sodium Chloride (Heparin/ 0.45% Nacl-25,000 Unit/500 Ml) 25,000 unit in 500 mls @ 20 mls/hr IV TITRATE DEMI; Protocol Stop: 02/15/22 20:59 Last Admin: 02/13/22 20:52 Dose: 1,000 units/hr, 20 mls/hr Sodium Chloride (Nacl 0.9% 1000 Ml) 1,000 mls @ 75 mls/hr IV DIRECT DEMI Stop: 02/14/22 10:29 Nitroglycerin/Dextrose (Tridil Drip 50mg/250ml) 50 mg in 250 mls @ 6 mls/hr IV TITR ONE; Protocol Stop: 02/15/22 16:07 Tirofiban/Sodium Chloride (Aggrastat Drip (12.5 Mg/250 Ml)) 12,500 mcg in 250 mls @ 0 mls/hr IV DIRECT DEMI; Protocol Stop: 02/14/22 16:59 Insulin Human Lispro (Insulin Lispro 100 Unit/Ml) 0 unit SUB-Q ACHS DEMI; Protocol Magnesium Hydroxide (Magnesium Hydroxide (Mom) Oral Liqd Udc) 30 ml PO Q4H PRN PRN Reason: Constipation Metoprolol Tartrate (Metoprolol Tartrate 50 Mg Tab) 50 mg PO BID@0800,1700 DEMI Nitroglycerin (Nitroglycerin 0.4 Mg Tab Subl) 0.4 mg SL .Q5MIN PRN PRN Reason: Chest Pain Sodium Chloride (Sodium Chloride 0.9% 10 Ml Flush Syringe) 10 ml IV BID DEMI Sodium Chloride (Sodium Chloride 0.9% 10 Ml Flush Syringe) 10 ml IV PRN PRN PRN Reason: LINE FLUSH Tramadol HCl (Tramadol 50 Mg Tab) 50 mg PO Q6H PRN PRN Reason: Pain, Moderate (4-6) Physical Examination Vital Signs Temp Pulse Resp BP Pulse Ox 97.3 F L 64 22 121/84 97 02/13/22 19:03 02/13/22 19:03 02/13/22 19:03 02/13/22 19:03 02/13/22 19:03 General appearance: mild distress HEENT: Positive: PERRL, EOMI Neck: Positive: neck supple Cardiac: Positive: Reg Rate and Rhythm, Audible Murmur Lungs: Positive: clear to auscultation Neuro: Positive: Grossly Intact Abdomen: Positive: Soft Incision: Cardiac Cath Site Extremities: Absent: normal (No human), edema Results 02/13/22 19:18 02/13/22 19:18 Cardiac Enzymes 02/13/22 Range/Units 19:18 CK-MB (CK-2) 2.2 (0.0-4.0) ng/mL Coagulation 02/13/22 Range/Units 19:18 PT 13.5 (12.2-14.9) Sec. INR 0.93 (0.87-1.13) CBC 02/13/22 Range/Units 19:18 WBC 12.3 H (4.5-11.0) K/mm3 RBC 5.36 H (3.65-5.03) M/mm3 Hgb 15.1 H (10.1-14.3) gm/dl Hct 47.0 H (30.3-42.9) % Plt Count 360 (140-440) K/mm3 Lymph # (Auto) 2.0 (1.2-5.4) K/mm3 [place] # (Auto) 0.8 (0.0-0.8) K/mm3 Eos # (Auto) 0.1 (0.0-0.4) K/mm3 Baso # (Auto) 0.1 (0.0-0.1) K/mm3 Comprehensive Metabolic Panel 02/13/22 Range/Units 19:18 Sodium 136 L (137-145) mmol/L Potassium 3.9 (3.6-5.0) mmol/L Chloride 96.2 L (98-107) mmol/L Carbon Dioxide 23 (22-30) mmol/L BUN 9 (7-17) mg/dL Creatinine 1.5 H (0.6-1.2) mg/dL Glucose 154 H (65-100) mg/dL Calcium 9.5 (8.4-10.2) mg/dL - Imaging and Cardiology Cardiac cath: report reviewed (eft heart cath revealed RCA small nondominant. Mild to moderate LV dysfunction with anterior apical inferior apical hypokinesis with left main large and patent LAD is a large Vessel patent sluggish flow diagonal 1 diagonal 2 patent circumflex is a dominant vessel proximal to mid patent OM1 OM 2 pat) EKG interpretations - Telemetry EKG Rhythm: Sinus Rhythm (Sinus rhythm with mild inferior ST elevations) Assessment and Plan 56-year-old female with acute coronary syndrome refractory to medical management with EKG changes inferior leads mild to moderate LV dysfunction. Left heart cath revealed eft heart cath revealed RCA small nondominant. Mild to moderate LV dysfunction with anterior apical inferior apical hypokinesis with left main large and patent LAD is a large Vessel patent sluggish flow diagonal 1 diagonal 2 patent circumflex is a dominant vessel proximal to mid patent OM1 OM 2 patent L PDA is a small vessel but occluded. Attempted multiple times for balloon angioplasty but is too small for stenting and only was able to restore KANDICE I flow despite multiple attempts. In view of such small vessel L PDA will treat medically . Discussed this with patient patient's son in detail. Post radial care. Pain control. Patient states not being on oral anticoagulation for proximal A. fib. Questionable embolic in nature. As a cause of acute coronary syndrome. - Patient Problems (1) Acute diastolic (congestive) heart failure Current Visit: Yes Status: Acute (2) Atrial fibrillation Current Visit: Yes Status: Chronic Qualifiers: Atrial fibrillation type: paroxysmal Qualified Code(s): I48.0 - Paroxysmal atrial fibrillation (3) Acute renal insufficiency Current Visit: Yes Status: Acute (4) Acute coronary syndrome Current Visit: Yes Status: Acute (5) DVT prophylaxis Current Visit: No Status: Acute (6) Obesity hypoventilation syndrome Current Visit: No Status: Acute (7) Diabetes mellitus Current Visit: Yes Status: Acute
[2022-02-13] MEDS: HYDROmorphone 0.5 MG/0.5 ML INJ IV PRN ×2 (22:55→23:32)
--- NOTE | 2022-02-13 23:20 | History and Physical Report ---
History of Present Illness Date of examination: 02/13/22 Date of admission: 02/13/22 22:53 Chief complaint: Chest Pain History of present illness: 56-year-old -Congolese female with known history atrial fibrillation flecainide, diabetes mellitus, presenting to the emergency room today complaining of chest pain. Chest pain was said to have been ongoing for about 40 minutes prior to arrival in the emergency room. Chest pain is substernal and was described as tightness. She had associated shortness of breath. She denies any headache or dizziness, denies any diaphoresis. Denies any nausea vomiting and no abdominal pain. There has been no known relieving or exacerbating factor. On a scale of 10 pain was about 10/10 in severity. There has been no r adiation. Patient's last stress test was about 2 years ago but has never had any cardiac catheterization. She follows up with Dr. Slaughter- [facility]. Upon arrival in the emergency room today, initial EKG was not concerning for STEMI however patient continued to have persistent chest pain despite being given nitroglycerin and aspirin. Repeat EKG was concerning for EKG changes in the inferior leads. Patient was therefore taken to the Filter Press Supervisor for further evaluation. Cardiac cath reveals:Left heart cath revealed RCA small nondominant. Mild to moderate LV dysfunction with anterior apical inferior apical hypokinesis with left main large and patent LAD is a large Vessel patent sluggish flow diagonal 1 diagonal 2 patent circumflex is a dominant vessel proximal to mid patent OM1 OM 2 patent L PDA is a small vessel but occluded. Multiple attempts for balloon angioplasty was made but is too small for stenting and only was able to restore KANDICE I flow despite multiple attempts. Patient is placed on IV heparin IV Aggrastat IV nitro and treat medically. Patient subsequently admitted into the intensive care unit status post cardiac cath. Past History Past Medical History: atrial fib (Proximal), diabetes, other (Asthma ,Bipolar disorder) Past Surgical History: denies: No surgical history Social history: no significant social history, other (Marijuana use) Family history: no significant family history Medications and Allergies Allergies Allergy/AdvReac Type Severity Reaction Status Date / Time morphine Allergy Hives Verified 02/13/22 19:05 Home Medications Medication Instructions Recorded Confirmed Last Taken Type oxyCODONE /ACETAMINOPHEN 5 mg PO 05/12/19 05/06/19 08:00 History Apixaban [Eliquis] 5 mg PO BID #60 tablet 05/13/19 Unknown Rx Diltiazem HCl [Cardizem Cd] 300 mg PO DAILY #30 cap.er.24h 05/13/19 Unknown Rx QUEtiapine [SEROquel] 100 mg PO QDAY #30 tab 05/13/19 Unknown Rx buPROPion XL [Wellbutrin Xl] 150 mg PO QAM #30 tab.er.24h 05/13/19 Unknown Rx diphenhydrAMINE [Benadryl CAP] 25 mg PO QHS PRN capsule 05/13/19 Unknown Rx Active Meds: Active Medications Acetaminophen (Acetaminophen 325 Mg Tab) 650 mg PO Q6H PRN PRN Reason: Pain, Mild (1-3) Hydrocodone Bitart/Acetaminophen (Hydrocodone/Acetaminophen 5-325 Mg Tab) 1 each PO Q6H PRN PRN Reason: Pain, Moderate (4-6) Aspirin (Aspirin Ec 325 Mg Tab) 325 mg PO QDAY DEMI Aspirin (Aspirin 81 Mg Tab Chew) 81 mg PO QDAY DEMI Atorvastatin Calcium (Atorvastatin 40 Mg Tab) 80 mg PO QHS DEMI Clopidogrel Bisulfate (Clopidogrel 75 Mg Tab) 75 mg PO QDAY DEMI Dextrose (Dextrose 50% In Water (25gm) 50 Ml Syringe) 0 ml IV Q30MIN PRN; Protocol PRN Reason: Hypoglycemia Heparin Sodium (Porcine) (Heparin 10,000 Units/10 Ml Vial) 4,200 unit 40 unit/kg (4200 unit) IV Q6H PRN PRN Reason: Anti-Xa Assay<0.1 units/ml Hydromorphone HCl (Hydromorphone 0.5 Mg/0.5 Ml Inj) 0.25 mg IV Q3H PRN PRN Reason: Pain, Moderate (4-6) Hydromorphone HCl (Hydromorphone 0.5 Mg/0.5 Ml Inj) 0.5 mg IV Q3H PRN PRN Reason: Pain , Severe (7-10) Hydromorphone HCl (Hydromorphone 0.5 Mg/0.5 Ml Inj) 0.25 mg IV Q5MIN PRN PRN Reason: Chest Pain Heparin Sodium/Sodium Chloride (Heparin/ 0.45% Nacl-25,000 Unit/500 Ml) 25,000 unit in 500 mls @ 20 mls/hr IV TITRATE DEMI; Protocol Stop: 02/15/22 20:59 Last Admin: 02/13/22 20:52 Dose: 1,000 units/hr, 20 mls/hr Sodium Chloride (Nacl 0.9% 1000 Ml) 1,000 mls @ 75 mls/hr IV DIRECT DEMI Stop: 02/14/22 10:29 Nitroglycerin/Dextrose (Tridil Drip 50mg/250ml) 50 mg in 250 mls @ 6 mls/hr IV TITR ONE; Protocol Stop: 02/15/22 16:07 Tirofiban/Sodium Chloride (Aggrastat Drip (12.5 Mg/250 Ml)) 12,500 mcg in 250 mls @ 0 mls/hr IV DIRECT DEMI; Protocol Stop: 02/14/22 16:59 Insulin Human Lispro (Insulin Lispro 100 Unit/Ml) 0 unit SUB-Q ACHS DEMI; Protocol Magnesium Hydroxide (Magnesium Hydroxide (Mom) Oral Liqd Udc) 30 ml PO Q4H PRN PRN Reason: Constipation Metoprolol Tartrate (Metoprolol Tartrate 50 Mg Tab) 50 mg PO BID@0800,1700 DEMI Nitroglycerin (Nitroglycerin 0.4 Mg Tab Subl) 0.4 mg SL .Q5MIN PRN PRN Reason: Chest Pain Sodium Chloride (Sodium Chloride 0.9% 10 Ml Flush Syringe) 10 ml IV BID DEMI Sodium Chloride (Sodium Chloride 0.9% 10 Ml Flush Syringe) 10 ml IV PRN PRN PRN Reason: LINE FLUSH Tramadol HCl (Tramadol 50 Mg Tab) 50 mg PO Q6H PRN PRN Reason: Pain, Moderate (4-6) Review of Systems Constitutional: no fever, no chills Ears, nose, mouth and throat: no nasal congestion, no sore throat Cardiovascular: chest pain, no palpitations Respiratory: no cough, no shortness of breath Gastrointestinal: no abdominal pain, no nausea, no vomiting, no diarrhea Genitourinary Female: no pelvic pain, no dysuria, no difficulty voiding, no hematuria Musculoskeletal: no neck pain, no low back pain Integumentary: no rash, no pruritis Neurological: no headaches, no confusion Psychiatric: no anxiety, no depression Endocrine: no polyphagia, no polydipsia, no polyuria, no nocturia Exam - Constitutional Vitals: Temp Pulse Resp BP Pulse Ox 98 F 72 20 100/67 97 02/13/22 20:57 02/13/22 20:57 02/13/22 20:02 02/13/22 20:57 02/13/22 20:02 General appearance: Present: no acute distress, well-nourished - EENT Eyes: Present: PERRL, EOM intact. Absent: scleral icterus ENT: hearing intact, clear oral mucosa, dentition normal - Neck Neck: Present: supple, normal ROM - Respiratory Respiratory effort: normal Respiratory: bilateral: CTA - Cardiovascular Rhythm: regular Heart Sounds: Present: S1 & S2, systolic murmur (Soft systolic murmur). Absent: gallop, diastolic murmur, rub, click - Extremities Extremities: no ischemia, pulses intact, pulses symmetrical, No edema, normal temperature, normal color, Full ROM Peripheral Pulses: within normal limits - Abdominal General gastrointestinal: Present: soft, non-tender, non-distended, normal bowel sounds. Absent: mass - Integumentary Integumentary: Present: clear, warm, dry, normal turgor. Absent: rash - Musculoskeletal Musculoskeletal: strength equal bilaterally - Psychiatric Psychiatric: appropriate mood/affect, intact judgment & insight, memory intact, cooperative - Neurologic Neurologic: CNII-XII intact, no focal deficits, moves all extremities HEART Score - HEART Score EKG: Non-specific Age: 45-65 Risk factors: 1-2 risk factors Troponin: Troponin T < 0.010 ng/mL (0.00-0.029) 02/13/22 19:18 Troponin: < normal limit Results - Labs CBC & Chem 7: 02/13/22 23:04 02/13/22 23:04 Labs: Abnormal lab results 02/13/22 02/13/22 Range/Units 19:18 19:18 WBC 12.3 H (4.5-11.0) K/mm3 RBC 5.36 H (3.65-5.03) M/mm3 Hgb 15.1 H (10.1-14.3) gm/dl Hct 47.0 H (30.3-42.9) % RDW 17.3 H (13.2-15.2) % Seg Neutrophils % 76.4 H (40.0-70.0) % Seg Neutrophils # 9.4 H (1.8-7.7) K/mm3 Sodium 136 L (137-145) mmol/L Chloride 96.2 L (98-107) mmol/L Creatinine 1.5 H (0.6-1.2) mg/dL Glucose 154 H (65-100) mg/dL Assessment and Plan Assessment: 1. Acute coronary syndrome 2. History of atrial fibrillation on flecainide-rate controlled 3. Diabetes mellitus 4. History of bipolar disorder Plan 1. Patient is status post cardiac cath and is she is being treated medically with IV heparin and Aggrastat. 2. We will request echocardiogram. 3. We will continue to monitor EKG and request follow-up by cardiology. 4. Patient placed on sliding scale insulin, will monitor Accu-Cheks. DVT Prophylaxis: Patient currently on IV heparin Code Status: Patient is full code.
[2022-02-13] MEDS: HYDROcodone/ACETAMINOPHEN 5-325 MG TAB PO PRN (23:39)
[2022-02-13 23:54] LABS: Basophils # (Auto) 0.1 K/mm3 (0.0-0.1); Basophils % (Auto) 0.5 % (0.0-1.8); Eosinophils % (Auto) 0.1 % (0.0-4.3); Hematocrit 42.7 % (30.3-42.9); Hemoglobin 13.6 gm/dl (10.1-14.3); Lymphocytes # (Auto) 1.6 K/mm3 (1.2-5.4); Lymphocytes % (Auto) 12.8 % (13.4-35.0); Mean Corpuscular HGB Conc 32 % (30-34); Mean Corpuscular Volume 88 fl (79-97); Monocytes # (Auto) 0.4 K/mm3 (0.0-0.8); Monocytes % (Auto) 3.6 % (0.0-7.3); Platelet Count 335 K/mm3 (140-440); Red Blood Count 4.85 M/mm3 (3.65-5.03); Red Cell Distribution Width 17.4 % (13.2-15.2)
[2022-02-14 00:07] LABS: BUN/Creatinine Ratio 8; Blood Urea Nitrogen 9 mg/dL (7-17); Calcium 8.7 mg/dL (8.4-10.2); Hemolysis Index 4
[2022-02-14] MEDS ORDERED: HYDROmorphone 1 MG/1 ML INJ IV ONE (00:12)
[2022-02-14] MEDS ORDERED: TIROFIBAN/NS 12,500 MCG/250 ML BAG IV SCH (01:00)
[2022-02-14 03:14] LABS: Basophils # (Auto) 0.1 K/mm3 (0.0-0.1); Basophils % (Auto) 0.8 % (0.0-1.8); Hematocrit 41.4 % (30.3-42.9); Lymphocytes # (Auto) 1.4 K/mm3 (1.2-5.4); Lymphocytes % (Auto) 11.9 % (13.4-35.0); Mean Corpuscular HGB Conc 31 % (30-34); Mean Corpuscular Volume 88 fl (79-97); Monocytes # (Auto) 0.6 K/mm3 (0.0-0.8); Monocytes % (Auto) 5.2 % (0.0-7.3); Platelet Count 325 K/mm3 (140-440); Red Blood Count 4.72 M/mm3 (3.65-5.03); Red Cell Distribution Width 17.2 % (13.2-15.2)
[2022-02-14 03:31] LABS: BUN/Creatinine Ratio 10; Blood Urea Nitrogen 9 mg/dL (7-17); Hemolysis Index 4
[2022-02-14 03:51] LABS: Chol/HDL Ratio 3.65 %; HDL Cholesterol 38 mg/dL (40-59); LDL Cholesterol,Direct 89 mg/dL (50-130)
--- NOTE | 2022-02-14 04:32 | XRay Report ---
CHEST 1 VIEW INDICATION / CLINICAL INFORMATION: post pci. COMPARISON: Chest x-ray 02/13/2022 FINDINGS: SUPPORT DEVICES: None. HEART / MEDIASTINUM: Stable interval appearance of the cardiomediastinal silhouette. LUNGS / PLEURA: Bilateral lung opacities demonstrate no significant interval change. BONES: No significant osseous abnormality. ADDITIONAL FINDINGS: No significant additional findings. IMPRESSION: 1. No significant change. Signer Name: Austin Mendez II, MD Signed: 02/14/2022 4:27 AM Workstation Name: [id number]
--- NOTE | 2022-02-14 06:24 | Cardiac Catherization Report ---
DATE OF SERVICE: 02/13/2022 LEFT HEART CATHETERIZATION/PERCUTANEOUS BALLOON ANGIOPLASTY REPORT PRIMARY ROLL EDGE MACHINE OPERATOR: Dr. Slaughter. CLINICAL INFORMATION: A 56-year-old -Armenian female with obesity, has paroxysmal atrial fibrillation, not on oral anticoagulation as the patient is on flecainide, presents this evening with acute chest pain, denies any symptoms prior to this, midsternum. Initial EKG was not diagnostic for acute MO. The patient, despite medical therapy, is still having persistent pain and EKG changes in inferior leads. The patient was brought emergently back to the grass farm laborer. Procedure was done with moderate sedation started at 21:13, finished at 21:53, 40 minutes of moderate sedation. DESCRIPTION OF PROCEDURE: Procedure was done via the right radial artery, sterile technique and local anesthesia. A 6-Eritrean radial sheath inserted. Left system engaged with JL3.5 catheter. Left main is large and patent. Sluggish flow in the LAD initially. Circ is dominant. Proximal mid is patent up to the bifurcation prior to LPDA, then it becomes 100% in the AV groove portion of the circ. OM1, OM2 are patent. RCA is a small nondominant vessel, patent. LV gram shows mild to moderate LV dysfunction with anterior, anterior apical, inferior apical hypokinesis. Attempted PCI of the distal circ and LPDA. Engaged left system with an EBU 3.5 guiding catheter. Tried to cross into the very distal LPDA with great difficulty. Balloon with a 2.5 x 12 mm balloon initially helped restore KANDICE 1 flow, but could not get any better than that and used a 2.0 x 15 and a 2.5 x 15 just could not increase flow into the distal reference vessel of the LPDA. Despite multiple attempts and IC nitro, multiple wiring and ballooning, looking for other areas of occlusion into the distal LAD, there was none there even with wiring. The patient has even OMs distally, would not open, would not wire, so the culprit vessel was felt to be in the LPDA where a small vessel noted. The patient has adequate ACT, is on IV nitro, IV heparin and IV Aggrastat. We will treat this medically. Removed coronary wire. No dissection or embolization on any other vessels. Left main patent, LAD patent. Circ up to the LPDA is patent with KANDICE 1 flow in LPDA small vessel. OM1, OM2 patent, RCA patent. A 6-Eritrean guiding catheter taken over a guidewire. A 6-Eritrean radial sheath was discontinued. Radial band applied. No hematoma, no bleeding. SUMMARY: Unsuccessful PCI of the LPDA small distal vessel possible thrombotic, questionable embolic in nature with a history of AFib and treat medically on IV heparin. IV Aggrastat, IV nitro saline, aspirin, Plavix and statin medication. TID: [id number] RECEIPT: [id number] [facility] MTD[facility]
[2022-02-14] MEDS: HYDROmorphone 0.5 MG/0.5 ML INJ IV PRN ×4 (08:40→21:34)
[2022-02-14] MEDS: METOPROLOL TARTRATE 50 MG TAB PO SCH ×2 (08:49→17:10)
--- NOTE | 2022-02-14 09:51 | Progress Note ---
Assessment and Plan #Unstable angina / ACS - cath showed occluded LPDA, concern for possible embolic etiology #Mild-moderate LV dysfunction per cath #Paroxysmal atrial fibrillationon flecainide as outpatient #Diabetes -Await echo. -Continue IV nitroglycerin as antianginal. May use IV dilaudid prn. -Continue IV tirofiban for 18 hours and IV heparin for 48 hours. -Continue aspirin, Plavix, atorvastatin, and metoprolol. -Discussed with interventionalist, Dr. Ramos. Suspect ACS event possibly related to embolic in nature. Will medically manage for next 48-72 hours and consider repeat cardiac catheterization pending clinical course prior to discharge. Otherwise, consider discharge on ASA and eliquis. -Given structural heart disease with reduced LVEF, will discontinue flecainide. May consider alternate antiarrhythmic drug as outpatient. -[id number] is at least 3-4 (LV dysfunction, F, DM, ?CAD). Will start eliquis at discharge as above. Subjective Date of service: 02/14/22 Interval history: Patient underwent cardiac catheterization last night due to unstable angina with inferior EKG changes. She was found to have patent LAD, nondominant RCA, patent left circumflex, and occluded L PDA. Multiple vessels were noted to have sluggish flow and L PDA angioplasty was attempted, but no stent placed due to small vessel size. LV function was mild-moderately reduced. Medical management was recommended. Patient has history of atrial fibrillation for which she was previously managed with flecainide but not on anticoagulation. Overnight, she reports continued chest discomfort. She is currently on IV nitroglycerin, IV heparin, and IV tirofiban. Objective Vital Signs Temp Pulse Pulse Resp BP BP Pulse Ox 02/14/22 08:49 71 103/67 02/14/22 06:45 69 100 02/14/22 06:41 71 23 110/70 97 02/14/22 06:30 71 23 110/70 02/14/22 06:21 69 21 109/68 97 02/14/22 06:14 98.5 F 69 14 111/71 100 02/14/22 06:11 69 23 109/69 98 02/14/22 06:00 70 23 109/69 97 02/14/22 05:51 69 21 111/71 98 02/14/22 05:40 70 22 111/71 98 02/14/22 05:37 100 02/14/22 05:31 68 21 111/71 98 02/14/22 05:25 98.5 F 69 14 111/71 100 02/14/22 05:21 67 19 111/71 98 02/14/22 05:11 67 20 111/71 98 02/14/22 05:00 71 17 111/71 98 02/14/22 04:51 69 21 113/68 99 02/14/22 04:41 68 21 113/68 99 02/14/22 04:31 69 19 113/68 98 02/14/22 04:25 98.6 F 69 14 111/71 100 02/14/22 04:21 68 19 113/68 97 02/14/22 04:11 69 11 L 113/68 98 02/14/22 04:00 98.6 F 67 21 113/68 98 02/14/22 03:51 65 22 109/67 99 02/14/22 03:41 67 20 109/67 99 02/14/22 03:31 66 17 109/67 99 02/14/22 03:29 98.6 F 66 71 14 109/67 100 02/14/22 03:25 66 02/14/22 03:21 68 23 109/67 99 02/14/22 03:11 67 20 109/67 99 02/14/22 03:00 66 21 109/67 99 02/14/22 02:51 68 18 109/64 99 02/14/22 02:41 67 21 109/64 98 02/14/22 02:31 65 20 109/64 100 02/14/22 02:25 98.6 F 66 14 109/67 100 02/14/22 02:21 64 23 109/64 100 02/14/22 02:11 65 22 109/64 100 02/14/22 02:03 71 100 02/14/22 02:00 63 19 109/64 99 02/14/22 01:51 69 13 116/72 99 02/14/22 01:41 66 23 116/72 98 02/14/22 01:31 68 23 116/72 100 02/14/22 01:25 97.9 F 66 14 116/71 100 02/14/22 01:21 67 23 116/72 98 02/14/22 01:11 65 20 116/72 99 02/14/22 01:00 64 19 116/72 100 02/14/22 00:51 68 15 112/73 99 02/14/22 00:41 67 18 112/73 98 02/14/22 00:31 66 26 H 112/73 99 02/14/22 00:25 97.9 F 66 71 14 117/71 100 02/14/22 00:21 65 11 L 112/73 99 02/14/22 00:11 70 12 112/73 98 02/14/22 00:00 66 14 112/73 98 02/13/22 23:58 67 13 99 02/13/22 20:57 98 F 72 100/67 02/13/22 20:02 68 20 85/56 97 02/13/22 20:01 63 122/72 02/13/22 19:03 97.3 F L 64 22 121/84 97 - Physical Examination HEENT: Positive: PERRL, EOMI Neck: Positive: neck supple Cardiac: Positive: Reg Rate and Rhythm Lungs: Positive: Normal Breath Sounds Neuro: Positive: Grossly Intact Abdomen: Positive: Soft Incision: Cardiac Cath Site (right radial 2+, hand warm 5/5 strength) Extremities: Present: normal, edema - Labs and Meds Cardiac Enzymes 02/13/22 Range/Units 19:18 CK-MB (CK-2) 2.2 (0.0-4.0) ng/mL Coagulation 02/13/22 Range/Units 19:18 PT 13.5 (12.2-14.9) Sec. INR 0.93 (0.87-1.13) Lipids 02/14/22 Range/Units 03:00 Triglycerides 106 (2-149) mg/dL Cholesterol 139 (50-199) mg/dL HDL Cholesterol 38 L (40-59) mg/dL Cholesterol/HDL Ratio 3.65 % CBC 02/13/22 02/13/22 02/14/22 Range/Units 19:18 23:04 03:00 WBC 12.3 H 12.4 H 11.4 H (4.5-11.0) K/mm3 RBC 5.36 H 4.85 4.72 (3.65-5.03) M/mm3 Hgb 15.1 H 13.6 13.0 (10.1-14.3) gm/dl Hct 47.0 H 42.7 41.4 (30.3-42.9) % Plt Count 360 335 325 (140-440) K/mm3 Lymph # (Auto) 2.0 1.6 1.4 (1.2-5.4) K/mm3 [place] # (Auto) 0.8 0.4 0.6 (0.0-0.8) K/mm3 Eos # (Auto) 0.1 0.0 0.0 (0.0-0.4) K/mm3 Baso # (Auto) 0.1 0.1 0.1 (0.0-0.1) K/mm3 Comprehensive Metabolic Panel 02/13/22 02/13/22 02/14/22 Range/Units 19:18 23:04 03:00 Sodium 136 L 132 L 131 L (137-145) mmol/L Potassium 3.9 3.8 3.9 (3.6-5.0) mmol/L Chloride 96.2 L 95.1 L 99.0 (98-107) mmol/L Carbon Dioxide 23 21 L 22 (22-30) mmol/L BUN 9 9 9 (7-17) mg/dL Creatinine 1.5 H 1.1 0.9 (0.6-1.2) mg/dL Glucose 154 H 145 H 121 H (65-100) mg/dL Calcium 9.5 8.7 8.0 L (8.4-10.2) mg/dL - Imaging and Cardiology Cardiac cath: report reviewed (eft heart cath revealed RCA small nondominant. Mild to moderate LV dysfunction with anterior apical inferior apical hypokinesis with left main large and patent LAD is a large Vessel patent sluggish flow otoniel gonal 1 diagonal 2 patent circumflex is a dominant vessel proximal to mid patent OM1 OM 2 pat)
[2022-02-14] MEDS ORDERED: ASPIRIN EC 325 MG TAB PO SCH (10:00)
[2022-02-14] MEDS: CLOPIDOGREL 75 MG TAB PO SCH (10:10)
[2022-02-14] MEDS: ASPIRIN 81 MG TAB CHEW PO SCH (10:10)
[2022-02-14] MEDS: INSULIN LISPRO 100 UNIT/ML SUB-Q SCH ×4 (10:30→21:25)
--- NOTE | 2022-02-14 10:53 | Progress Note ---
<GALEN SANCHEZ - Last Filed: 02/14/22 17:24> Assessment and Plan Assessment and plan: this is a 56-year-old female with known past medical history of paroxysmal atrial fibrillation on flecainide at home, diabetes mellitus, Asthma and Bipolar disorder admitted for STEMI s/p emergent LHC with unsuccesfull PCI. Hospital Course to Date: 02/14: Patient is still complaining on chest pressure this am. On Nitro, Aggrastat, and heparin gtts. Per cardio, ACS event is most likely embolic in nature, plan to medically manage for next 48-72 hours and possible repeat cardiac catheterization pending clinical course prior to discharge. On ASA, Plavix, and BB per Cardio and continue drips per Cardio. 2D echo pending. PRN Analgesia for pain control. Assessment and Plan #STEMI #Acute Coronary Syndrome #H/o Atrial Fibrillation on Flecainide for rate controlled - Presented with substernal CP and tightness - Initial EKG was unremarkable, with evident ST changes - However patient continued to have persistent chest pain despite being given nitroglycerin and aspirin - Repeat EKG revealed ST changes in inferior lead with troponin leak - client engagement specialist Cardiology was consulted - 02/13 s/p emergent LHC- revealed RCA small nondominant. Mild to moderate LV dysfunction with anterior apical inferior apical hypokinesis with left main large and patent LAD is a large Vessel patent sluggish flow diagonal 1 diagonal 2 patent circumflex is a dominant vessel proximal to mid patent OM1 OM 2 patent L PDA is a small vessel but occluded. Multiple attempts for balloon angioplasty was made but is too small for stenting and only was able to restore KANDICE I flow despite multiple attempts. - Patient still c/o of Chest pressure this am - NSR, with no significant ST changed on the monitor this am, VSS - Patient remains on Nitro, Aggrastat, and heparin gtts - Per cardio, ACS event is most likely embolic in nature, plan to medically manage for next 48-72 hours and possible repeat cardiac catheterization pending clinical course prior to discharge - On ASA, Plavix, and BB per Cardio - 2D echo pending - Continue blood pressure monitor per protocol - Maintain MAP above 65 - PRN Analgesia for pain control - Per Cardio plan to discharge patient on ASA and eliquis. - CCM consulted, appreciate recommendations #Hyponatremia - probably due to dehydration - Continue current IVF hydration - Avoid nephrotoxic medications - Monitor and replace electrolytes as needed #Type 2 Diabetes Mellitus - BG check and SSI ACHS - Avoid Hypoglycemia - While critically ill target blood glucose of 140-180 #History of Bipolar Disorder - Resume home meds when list is available - Avoid benzodiazepine to reduce the possibility of delirium - Maintenance of sleep-wake cycle #GI/DVT Prophylaxis - PPI- Pepcid - On Aggrastat and Heparin gtts - SCDs to bilateral lower extremities while in bed The high probability of a clinically significant, sudden or life threatening deterioration of the [multiple] system(s) required my full and direct attention, intervention and personal management. The aggregate critical care time was [60] minutes. This time is in addition to time spent performing reported procedures but includes the following: [x] Data Review and interpretation [x] Patient assessment and monitoring of vital signs [x] Documentation [x] Medication orders and management Disposition Plan: ICU Total Time Spent with Patient (Minutes): 60 History Interval history: Patient seen and examined at the bedside. Full AAO, on 3L NC. Still c/o of 9/10 nonradiating chest pressure. Patient remains on Nitro gtt, Aggrastat and Heparin gtt. NSR, with no significant ST changed on the monitor, VSS. Hospitalist Physical - Constitutional Vitals: Temp Pulse Resp BP Pulse Ox 98.5 F 76 20 94/58 94 02/14/22 06:14 02/14/22 10:30 02/14/22 10:30 02/14/22 10:30 02/14/22 10:30 General appearance: Present: no acute distress, well-nourished, obese - EENT Eyes: Present: PERRL ENT: hearing intact - Neck Neck: Present: normal ROM - Respiratory Respiratory effort: normal Respiratory: bilateral: diminished - Cardiovascular Rhythm: regular Heart Sounds: Present: S1 & S2 - Extremities Extremities: no ischemia, pulses intact, pulses symmetrical Extremity abnormal: edema - Peripheral Assessment Generalized Edema Type: Non-pitting Edema Degree: 2+ Capillary Refill: < 3 seconds Skin Temperature: Warm Peripheral Pulses: within normal limits - Abdominal General gastrointestinal: soft, non-distended, normal bowel sounds - Integumentary Integumentary: Present: warm, dry - Psychiatric Psychiatric: appropriate mood/affect, cooperative - Neurologic Neurologic: CNII-XII intact, moves all extremities - Allied Health Allied health notes reviewed: nursing HEART Score - HEART Score EKG: Non-specific Age: 45-65 Risk factors: 1-2 risk factors Troponin: Troponin T 0.488 ng/mL (0.00-0.029) H* D 02/14/22 03:00 Troponin: < normal limit Results - Labs CBC & Chem 7: 02/14/22 03:00 02/14/22 03:00 Labs: Laboratory Last Values WBC 11.4 K/mm3 (4.5-11.0) H 02/14/22 03:00 RBC 4.72 M/mm3 (3.65-5.03) 02/14/22 03:00 Hgb 13.0 gm/dl (10.1-14.3) 02/14/22 03:00 Hct 41.4 % (30.3-42.9) 02/14/22 03:00 MCV 88 fl (79-97) 02/14/22 03:00 MCH 28 pg (28-32) 02/14/22 03:00 MCHC 31 % (30-34) 02/14/22 03:00 RDW 17.2 % (13.2-15.2) H 02/14/22 03:00 Plt Count 325 K/mm3 (140-440) 02/14/22 03:00 Lymph % (Auto) 11.9 % (13.4-35.0) L 02/14/22 03:00 Colbert % (Auto) 5.2 % (0.0-7.3) 02/14/22 03:00 Eos % (Auto) 0.0 % (0.0-4.3) 02/14/22 03:00 Baso % (Auto) 0.8 % (0.0-1.8) 02/14/22 03:00 Lymph # (Auto) 1.4 K/mm3 (1.2-5.4) 02/14/22 03:00 Colbert # (Auto) 0.6 K/mm3 (0.0-0.8) 02/14/22 03:00 Eos # (Auto) 0.0 K/mm3 (0.0-0.4) 02/14/22 03:00 Baso # (Auto) 0.1 K/mm3 (0.0-0.1) 02/14/22 03:00 Seg Neutrophils % 82.1 % (40.0-70.0) H 02/14/22 03:00 Seg Neutrophils # 9.4 K/mm3 (1.8-7.7) H 02/14/22 03:00 PT 13.5 Sec. (12.2-14.9) 02/13/22 19:18 INR 0.93 (0.87-1.13) 02/13/22 19:18 Heparin Anti-Xa Level 0.46 U.I./ml (0.3-0.7) 02/14/22 03:00 Sodium 131 mmol/L (137-145) L 02/14/22 03:00 Potassium 3.9 mmol/L (3.6-5.0) 02/14/22 03:00 Chloride 99.0 mmol/L (98-107) 02/14/22 03:00 Carbon Dioxide 22 mmol/L (22-30) 02/14/22 03:00 Anion Gap 14 mmol/L 02/14/22 03:00 BUN 9 mg/dL (7-17) 02/14/22 03:00 Creatinine 0.9 mg/dL (0.6-1.2) 02/14/22 03:00 Estimated GFR > 60 ml/min 02/14/22 03:00 BUN/Creatinine Ratio 10 % 02/14/22 03:00 Glucose 121 mg/dL (65-100) H 02/14/22 03:00 Calcium 8.0 mg/dL (8.4-10.2) L 02/14/22 03:00 Total Creatine Kinase 95 units/L (30-135) 02/13/22 19:18 CK-MB (CK-2) 2.2 ng/mL (0.0-4.0) 02/13/22 19:18 CK-MB (CK-2) Rel Index 2.3 (0-4) 02/13/22 19:18 Troponin T 0.488 ng/mL (0.00-0.029) H* D 02/14/22 03:00 Triglycerides 106 mg/dL (2-149) 02/14/22 03:00 Cholesterol 139 mg/dL (50-199) 02/14/22 03:00 LDL Cholesterol Direct 89 mg/dL (50-130) 02/14/22 03:00 HDL Cholesterol 38 mg/dL (40-59) L 02/14/22 03:00 Cholesterol/HDL Ratio 3.65 % 02/14/22 03:00 Active Medications - Current Medications Current Medications: Generic Name Dose Route Start Last Admin Trade Name Freq PRN Reason Stop Dose Admin Acetaminophen 650 mg 02/13/22 22:10 Acetaminophen 325 Mg Tab PO Q6H PRN Pain, Mild (1-3) Hydrocodone Bitart/Acetaminophen 1 each 02/13/22 22:28 02/13/22 23:39 Hydrocodone/Acetaminophen 5-325 Mg Tab PO 1 each Q6H PRN Administration Pain, Moderate (4-6) Aspirin 325 mg 02/14/22 10:00 Aspirin Ec 325 Mg Tab PO QDAY [facility] Aspirin 81 mg 02/14/22 10:00 Aspirin 81 Mg Tab Chew PO QDAY [facility] Atorvastatin Calcium 80 mg 02/14/22 22:00 Atorvastatin 40 Mg Tab PO QHS [facility] Clopidogrel Bisulfate 75 mg 02/14/22 10:00 Clopidogrel 75 Mg Tab PO QDAY [facility] Dextrose 0 ml 02/13/22 22:10 Dextrose 50% In Water (25gm) 50 Ml Syringe IV Q30MIN PRN Hypoglycemia Protocol Heparin Sodium (Porcine) 4,200 unit 02/13/22 20:13 Heparin 10,000 Units/10 Ml Vial 40 unit/kg (4200 unit) IV Q6H PRN Anti-Xa Assay<0.1 units/ml Hydromorphone HCl 0.25 mg 02/13/22 22:10 Hydromorphone 0.5 Mg/0.5 Ml Inj IV Q3H PRN Pain, Moderate (4-6) Hydromorphone HCl 0.5 mg 02/13/22 22:10 02/14/22 08:40 Hydromorphone 0.5 Mg/0.5 Ml Inj IV 0.5 mg Q3H PRN Administration Pain , Severe (7-10) Hydromorphone HCl 0.25 mg 02/13/22 22:10 Hydromorphone 0.5 Mg/0.5 Ml Inj IV Q5MIN PRN Chest Pain Heparin Sodium/Sodium Chloride 25,000 unit in 500 mls @ 20 mls/hr 02/13/22 21:00 02/14/22 04:57 Heparin/ 0.45% Nacl-25,000 Unit/500 Ml IV 02/15/22 20:59 1,000 units/hr TITRATE DEMI 20 mls/hr Titration Protocol 1,000 UNITS/HR Nitroglycerin/Dextrose 50 mg in 250 mls @ 6 mls/hr 02/13/22 22:28 02/14/22 08:30 Tridil Drip 50mg/250ml IV 02/15/22 16:07 75 mcg/min TITR ONE 22.5 mls/hr Titration Protocol 20 MCG/MIN Tirofiban/Sodium Chloride 12,500 mcg in 250 mls @ 9.75 mls/hr 02/14/22 01:00 02/14/22 05:56 Aggrastat Drip (12.5 Mg/250 Ml) IV 02/14/22 19:05 9.75 mls/hr DIRECT DEMI Administration Protocol Per Protocol Insulin Human Lispro 0 unit 02/14/22 07:30 02/14/22 10:30 Insulin Lispro 100 Unit/Ml SUB-Q Not Given ACHS DEMI Protocol Magnesium Hydroxide 30 ml 02/13/22 22:10 Magnesium Hydroxide (Mom) Oral Liqd Udc PO Q4H PRN Constipation Metoprolol Tartrate 50 mg 02/14/22 08:00 02/14/22 08:49 Metoprolol Tartrate 50 Mg Tab PO 50 mg BID@0800,1700 DEMI Administration Nitroglycerin 0.4 mg 02/13/22 19:47 Nitroglycerin 0.4 Mg Tab Subl SL .Q5MIN PRN Chest Pain Sodium Chloride 10 ml 02/13/22 23:00 Sodium Chloride 0.9% 10 Ml Flush Syringe IV BID DEMI Sodium Chloride 10 ml 02/13/22 22:25 Sodium Chloride 0.9% 10 Ml Flush Syringe IV PRN PRN LINE FLUSH Tramadol HCl 50 mg 02/13/22 22:10 Tramadol 50 Mg Tab PO Q6H PRN Pain, Moderate (4-6) <MARCIN FINCH E - Last Filed: 02/15/22 07:16> Assessment and Plan Assessment and plan: I saw and evaluated the patient. I agree with the findings and the plan of care as documented in the Nurse Practitioner's~note, with the following corrections and additions. Hospitalist Physical - Constitutional Vitals: Temp Pulse Resp BP Pulse Ox 98.9 F 82 29 H 106/61 97 02/15/22 04:23 02/15/22 06:00 02/15/22 06:00 02/15/22 06:00 02/15/22 06:00 HEART Score - HEART Score Troponin: Troponin T 0.488 ng/mL (0.00-0.029) H* D 02/14/22 03:00 Results - Labs CBC & Chem 7: 02/15/22 03:51 02/15/22 03:51 Labs: Laboratory Last Values WBC 8.6 K/mm3 (4.5-11.0) 02/15/22 03:51 RBC 4.14 M/mm3 (3.65-5.03) 02/15/22 03:51 Hgb 11.9 gm/dl (10.1-14.3) 02/15/22 03:51 Hct 36.1 % (30.3-42.9) 02/15/22 03:51 MCV 87 fl (79-97) 02/15/22 03:51 MCH 29 pg (28-32) 02/15/22 03:51 MCHC 33 % (30-34) 02/15/22 03:51 RDW 17.3 % (13.2-15.2) H 02/15/22 03:51 Plt Count 280 K/mm3 (140-440) 02/15/22 03:51 Lymph % (Auto) 11.9 % (13.4-35.0) L 02/14/22 03:00 Colbert % (Auto) 5.2 % (0.0-7.3) 02/14/22 03:00 Eos % (Auto) 0.0 % (0.0-4.3) 02/14/22 03:00 Baso % (Auto) 0.8 % (0.0-1.8) 02/14/22 03:00 Lymph # (Auto) 1.4 K/mm3 (1.2-5.4) 02/14/22 03:00 Colbert # (Auto) 0.6 K/mm3 (0.0-0.8) 02/14/22 03:00 Eos # (Auto) 0.0 K/mm3 (0.0-0.4) 02/14/22 03:00 Baso # (Auto) 0.1 K/mm3 (0.0-0.1) 02/14/22 03:00 Seg Neutrophils % 82.1 % (40.0-70.0) H 02/14/22 03:00 Seg Neutrophils # 9.4 K/mm3 (1.8-7.7) H 02/14/22 03:00 PT 14.4 Sec. (12.2-14.9) 02/15/22 03:51 INR 1.01 (0.87-1.13) 02/15/22 03:51 Heparin Anti-Xa Level < 0.10 U.I./ml (0.3-0.7) L 02/15/22 03:51 Sodium 139 mmol/L (137-145) D 02/15/22 03:51 Potassium 3.6 mmol/L (3.6-5.0) 02/15/22 03:51 Chloride 103.1 mmol/L (98-107) 02/15/22 03:51 Carbon Dioxide 24 mmol/L (22-30) 02/15/22 03:51 Anion Gap 16 mmol/L 02/15/22 03:51 BUN 5 mg/dL (7-17) L 02/15/22 03:51 Creatinine 0.6 mg/dL (0.6-1.2) 02/15/22 03:51 Estimated GFR > 60 ml/min 02/15/22 03:51 BUN/Creatinine Ratio 8 % 02/15/22 03:51 Glucose 102 mg/dL (65-100) H 02/15/22 03:51 POC Glucose 137 mg/dL (70-105) H 02/14/22 17:32 Calcium 7.7 mg/dL (8.4-10.2) L 02/15/22 03:51 Phosphorus 2.20 mg/dL (2.5-4.5) L 02/15/22 03:51 Magnesium 2.00 mg/dL (1.7-2.3) 02/15/22 03:51 Total Creatine Kinase 95 units/L (30-135) 02/13/22 19:18 CK-MB (CK-2) 2.2 ng/mL (0.0-4.0) 02/13/22 19:18 CK-MB (CK-2) Rel Index 2.3 (0-4) 02/13/22 19:18 Troponin T 0.488 ng/mL (0.00-0.029) H* D 02/14/22 03:00 Triglycerides 106 mg/dL (2-149) 02/14/22 03:00 Cholesterol 139 mg/dL (50-199) 02/14/22 03:00 LDL Cholesterol Direct 89 mg/dL (50-130) 02/14/22 03:00 HDL Cholesterol 38 mg/dL (40-59) L 02/14/22 03:00 Cholesterol/HDL Ratio 3.65 % 02/14/22 03:00 Active Medications - Current Medications Current Medications: Generic Name Dose Route Start Last Admin Trade Name Freq PRN Reason Stop Dose Admin Acetaminophen 650 mg 02/13/22 22:10 02/14/22 20:36 Acetaminophen 325 Mg Tab PO 650 mg Q6H PRN Administration Pain, Mild (1-3) Hydrocodone Bitart/Acetaminophen 1 each 02/13/22 22:28 02/15/22 00:24 Hydrocodone/Acetaminophen 5-325 Mg Tab PO 1 each Q6H PRN Administration Pain, Moderate (4-6) Aspirin 325 mg 02/14/22 10:00 02/14/22 10:10 Aspirin Ec 325 Mg Tab PO 325 mg QDAY DEMI Administration Aspirin 81 mg 02/14/22 10:00 02/14/22 10:10 Aspirin 81 Mg Tab Chew PO 81 mg QDAY DEMI Administration Atorvastatin Calcium 80 mg 02/14/22 22:00 02/14/22 21:07 Atorvastatin 40 Mg Tab PO 80 mg QHS DEMI Administration Clopidogrel Bisulfate 75 mg 02/14/22 10:00 02/14/22 10:10 Clopidogrel 75 Mg Tab PO 75 mg QDAY DEMI Administration Dextrose 0 ml 02/13/22 22:10 Dextrose 50% In Water (25gm) 50 Ml Syringe IV Q30MIN PRN Hypoglycemia Protocol Famotidine 20 mg 02/15/22 10:00 Famotidine 20 Mg Tab PO QDAY DEMI Heparin Sodium (Porcine) 4,200 unit 02/13/22 20:13 02/15/22 05:17 Heparin 10,000 Units/10 Ml Vial 40 unit/kg (4200 unit) 4,200 unit IV Administration Q6H PRN Anti-Xa Assay<0.1 units/ml Hydromorphone HCl 0.25 mg 02/13/22 22:10 Hydromorphone 0.5 Mg/0.5 Ml Inj IV Q3H PRN Pain, Moderate (4-6) Hydromorphone HCl 0.5 mg 02/13/22 22:10 02/15/22 06:13 Hydromorphone 0.5 Mg/0.5 Ml Inj IV 0.5 mg Q3H PRN Administration Pain , Severe (7-10) Hydromorphone HCl 0.25 mg 02/13/22 22:10 02/14/22 11:06 Hydromorphone 0.5 Mg/0.5 Ml Inj IV 0.25 mg Q5MIN PRN Administration Chest Pain Heparin Sodium/Sodium Chloride 25,000 unit in 500 mls @ 20 mls/hr 02/13/22 21:00 02/15/22 05:06 Heparin/ 0.45% Nacl-25,000 Unit/500 Ml IV 02/15/22 20:59 1,300 units/hr TITRATE DEMI 26 mls/hr Titration Protocol 1,000 UNITS/HR Nitroglycerin/Dextrose 50 mg in 250 mls @ 6 mls/hr 02/14/22 18:00 02/15/22 05:50 Tridil Drip 50mg/250ml IV 02/15/22 16:00 130 mcg/min TITR DEMI 39 mls/hr Administration Protocol 20 MCG/MIN Insulin Human Lispro 0 unit 02/14/22 07:30 02/14/22 21:25 Insulin Lispro 100 Unit/Ml SUB-Q Not Given ACHS DEMI Protocol Magnesium Hydroxide 30 ml 02/13/22 22:10 Magnesium Hydroxide (Mom) Oral Liqd Udc PO Q4H PRN Constipation Metoprolol Tartrate 50 mg 02/14/22 08:00 02/14/22 17:10 Metoprolol Tartrate 50 Mg Tab PO 50 mg BID@0800,1700 DEMI Administration Nitroglycerin 0.4 mg 02/13/22 19:47 Nitroglycerin 0.4 Mg Tab Subl SL .Q5MIN PRN Chest Pain Sodium Chloride 10 ml 02/13/22 23:00 02/14/22 21:06 Sodium Chloride 0.9% 10 Ml Flush Syringe IV 10 ml BID DEMI Administration Sodium Chloride 10 ml 02/13/22 22:25 Sodium Chloride 0.9% 10 Ml Flush Syringe IV PRN PRN LINE FLUSH Tramadol HCl 50 mg 02/13/22 22:10 Tramadol 50 Mg Tab PO Q6H PRN Pain, Moderate (4-6) Nutrition/Malnutrition Assess - Dietary Evaluation Nutrition/Malnutrition Findings: Nutrition Notes Start: 02/14/22 11:53 Freq: Status: Active Protocol: Document 02/14/22 11:53 CANDIDO (Rec: 02/14/22 11:56 CANDIDO [id number]) Nutrition Notes Need for Assessment generated from: MD Order,Education Initial or Follow up Brief Note Current Diagnosis Diabetes Other Pertinent Diagnosis Acute coronary syndrome/Chest pain Current Diet Cardiac/Consistent CHO Subjective/Other Information RD consulted for diet education. BP and BG reasonably controlled. PMHx includes afib, asthma and bipolar D/O. Pt underwent cardiac catheterization last pm. Burn Absent Trauma Absent Minimum of two criteria No Nutrition Intervention Follow-Up By: 02/18/22 Additional Comments F/U: intakes, diet education needs
[2022-02-14] MEDS: NITROGLYCERIN DRIP 50 MG/250 ML BOTTLE IV SCH ×2 (13:11→19:21)
--- NOTE | 2022-02-14 13:17 | Consultation ---
History of Present Illness Consult date: 02/14/22 Requesting physician: OWEN MENG Reason for consult: other (Acute ND) History of present illness: 56-year-old female with known past medical history of paroxysmal atrial fibrillation on flecainide at home, diabetes mellitus, Asthma and Bipolar disorder admitted for STEMI s/p emergent LHC with unsuccesfull PCI. Patient is still complaining on chest pressure this am. On Nitro, Aggrastat, and heparin gtts. Per cardiology documentation- ACS event is most likely embolic in nature, plan to medically manage for next 48-72 hours and possible repeat cardiac catheterization pending clinical course Patient seen and examined. Vitals, labs, medications, chart and imaging reviewed. Cardiology notes reviewed. Patient has on going chest pain, denies any shortness of breath, no fevers, no chills. denies any nausea or vomiting Past History Past Medical History: atrial fib (Proximal), diabetes, other (Asthma ,Bipolar disorder) Past Surgical History: denies: No surgical history Social history: no significant social history, other (Marijuana use) Family history: no significant family history Medications and Allergies Allergies Allergy/AdvReac Type Severity Reaction Status Date / Time morphine Allergy Hives Verified 02/13/22 19:05 Home Medications Medication Instructions Recorded Confirmed Last Taken Type oxyCODONE /ACETAMINOPHEN 5 mg PO 05/12/19 05/06/19 08:00 History Apixaban [Eliquis] 5 mg PO BID #60 tablet 05/13/19 Unknown Rx Diltiazem HCl [Cardizem Cd] 300 mg PO DAILY #30 cap.er.24h 05/13/19 Unknown Rx QUEtiapine [SEROquel] 100 mg PO QDAY #30 tab 05/13/19 Unknown Rx buPROPion XL [Wellbutrin Xl] 150 mg PO QAM #30 tab.er.24h 05/13/19 Unknown Rx diphenhydrAMINE [Benadryl CAP] 25 mg PO QHS PRN capsule 05/13/19 Unknown Rx Active Meds: Active Medications Acetaminophen (Acetaminophen 325 Mg Tab) 650 mg PO Q6H PRN PRN Reason: Pain, Mild (1-3) Hydrocodone Bitart/Acetaminophen (Hydrocodone/Acetaminophen 5-325 Mg Tab) 1 each PO Q6H PRN PRN Reason: Pain, Moderate (4-6) Last Admin: 02/13/22 23:39 Dose: 1 each Aspirin (Aspirin Ec 325 Mg Tab) 325 mg PO QDAY [facility] Last Admin: 02/14/22 10:10 Dose: 325 mg Aspirin (Aspirin 81 Mg Tab Chew) 81 mg PO QDAY [facility] Last Admin: 02/14/22 10:10 Dose: 81 mg Atorvastatin Calcium (Atorvastatin 40 Mg Tab) 80 mg PO QHS [facility] Clopidogrel Bisulfate (Clopidogrel 75 Mg Tab) 75 mg PO QDAY [facility] Last Admin: 02/14/22 10:10 Dose: 75 mg Dextrose (Dextrose 50% In Water (25gm) 50 Ml Syringe) 0 ml IV Q30MIN PRN; Prot ocol PRN Reason: Hypoglycemia Heparin Sodium (Porcine) (Heparin 10,000 Units/10 Ml Vial) 4,200 unit 40 unit/kg (4200 unit) IV Q6H PRN PRN Reason: Anti-Xa Assay<0.1 units/ml Hydromorphone HCl (Hydromorphone 0.5 Mg/0.5 Ml Inj) 0.25 mg IV Q3H PRN PRN Reason: Pain, Moderate (4-6) Hydromorphone HCl (Hydromorphone 0.5 Mg/0.5 Ml Inj) 0.5 mg IV Q3H PRN PRN Reason: Pain , Severe (7-10) Last Admin: 02/14/22 08:40 Dose: 0.5 mg Hydromorphone HCl (Hydromorphone 0.5 Mg/0.5 Ml Inj) 0.25 mg IV Q5MIN PRN PRN Reason: Chest Pain Last Admin: 02/14/22 11:06 Dose: 0.25 mg Heparin Sodium/Sodium Chloride (Heparin/ 0.45% Nacl-25,000 Unit/500 Ml) 25,000 unit in 500 mls @ 20 mls/hr IV TITRATE DEMI; Protocol Stop: 02/15/22 20:59 Last Titration: 02/14/22 04:57 Dose: 1,000 units/hr, 20 mls/hr Nitroglycerin/Dextrose (Tridil Drip 50mg/250ml) 50 mg in 250 mls @ 6 mls/hr IV TITR ONE; Protocol Stop: 02/15/22 16:07 Last Titration: 02/14/22 09:30 Dose: 100 mcg/min, 30 mls/hr Tirofiban/Sodium Chloride (Aggrastat Drip (12.5 Mg/250 Ml)) 12,500 mcg in 250 mls @ 9.75 mls/hr IV DIRECT DEMI; Protocol Stop: 02/14/22 19:05 Last Admin: 02/14/22 05:56 Dose: 9.75 mls/hr Insulin Human Lispro (Insulin Lispro 100 Unit/Ml) 0 unit SUB-Q ACHS DEMI; Protocol Last Admin: 02/14/22 10:30 Dose: Not Given Magnesium Hydroxide (Magnesium Hydroxide (Mom) Oral Liqd Udc) 30 ml PO Q4H PRN PRN Reason: Constipation Metoprolol Tartrate (Metoprolol Tartrate 50 Mg Tab) 50 mg PO BID@0800,1700 [facility] Last Admin: 02/14/22 08:49 Dose: 50 mg Nitroglycerin (Nitroglycerin 0.4 Mg Tab Subl) 0.4 mg SL .Q5MIN PRN PRN Reason: Chest Pain Sodium Chloride (Sodium Chloride 0.9% 10 Ml Flush Syringe) 10 ml IV BID [facility] Last Admin: 02/14/22 10:05 Dose: 10 ml Sodium Chloride (Sodium Chloride 0.9% 10 Ml Flush Syringe) 10 ml IV PRN PRN PRN Reason: LINE FLUSH Tramadol HCl (Tramadol 50 Mg Tab) 50 mg PO Q6H PRN PRN Reason: Pain, Moderate (4-6) Review of Systems Constitutional: no weight loss, no weight gain, no fever, no chills, no sweats Cardiovascular: chest pain, no orthopnea, no palpitations, no rapid/irregular heart beat, no edema, no syncope Respiratory: no cough, no hemoptysis, no shortness of breath, no dyspnea on exertion Gastrointestinal: no abdominal pain, no nausea, no vomiting, no diarrhea, no change in bowel habits Neurological: no transient paralysis, no weakness, no parathesias, no seizures, no syncope, no tremors, no ataxia Physical Examination Vital signs: Vital Signs Temp Pulse Resp BP Pulse Ox 97.3 F L 64 22 121/84 97 02/13/22 19:03 02/13/22 19:03 02/13/22 19:03 02/13/22 19:03 02/13/22 19:03 General appearance: no acute distress, alert, other (hirsutism) Eyes: non-icteric ENT: oropharynx moist Neck: supple, no lymphadenopathy, no JVD Effort: normal Ascultation: Bilateral: clear, diminished breath sounds Cardiovascular: regular rate and rhythm, other (S1,S2) Gastrointestinal: normoactive bowel sounds, soft, non-tender, other (Lara catheter) Integumentary: normal Extremities: no cyanosis, no edema, pulses normal normal mental status, non-focal exam, pupils equal and round, motor strength normal and mood appropriate, anxious Results - Laboratory Findings CBC and BMP: 02/15/22 03:51 02/15/22 03:51 PT/INR, D-dimer PT 13.5 Sec. (12.2-14.9) 02/13/22 19:18 INR 0.93 (0.87-1.13) 02/13/22 19:18 Abnormal lab findings: Abnormal Labs 02/13/22 02/13/22 02/13/22 19:18 19:18 23:04 WBC 12.3 H 12.4 H RBC 5.36 H Hgb 15.1 H Hct 47.0 H RDW 17.3 H 17.4 H Lymph % (Auto) 12.8 L Seg Neutrophils % 76.4 H 83.0 H Seg Neutrophils # 9.4 H 10.3 H Sodium 136 L Chloride 96.2 L Carbon Dioxide Creatinine 1.5 H Glucose 154 H Calcium Troponin T HDL Cholesterol 02/13/22 02/14/22 02/14/22 23:04 03:00 03:00 WBC 11.4 H RBC Hgb Hct RDW 17.2 H Lymph % (Auto) 11.9 L Seg Neutrophils % 82.1 H Seg Neutrophils # 9.4 H Sodium 132 L 131 L Chloride 95.1 L Carbon Dioxide 21 L Creatinine Glucose 145 H 121 H Calcium 8.0 L Troponin T 0.488 H* D HDL Cholesterol 38 L - Diagnostic Findings Chest x-ray: image reviewed (Hypoventilaotry, borderline cardiomegaly) Assessment and Plan STEMI s/p unsuccesful PCI Acute Coronary Syndrome H/o Atrial Fibrillation on Flecainide for rate control Hyponatremia Type 2 Diabetes Mellitus History of Bipolar Disorder - 02/13 s/p emergent LHC- revealed RCA small non dominant. Mild to moderate LV dysfunction with anterior apical inferior apical hypokinesis with left main large and patent LAD is a large Vessel patent sluggish flow diagonal 1 diagonal 2 patent circumflex is a dominant vessel proximal to mid patent OM1 OM 2 patent L PDA is a small vessel but occluded. Multiple attempts for balloon angioplasty was made but is too small for stent placement and only was able to restore KANDICE I flow despite multiple attempts. - Patient remains on Nitro, Aggrastat, and heparin infusion - On ASA, Plavix, and BB - 2D echo pending - Continue blood pressure monitor per protocol -Continue with pain management- continue with serial EKG -Accuchecks, glycemic control. target blood glucose 140-180mg/dL. Avoid hypoglycemia -Avoid delirium, patient has a history of bipolar disorder -Maintain sleep wake cycle -Discontinue Lara catheter, not clinically indicated -Resume chronic home medications as clinically indicated The high probability of a clinically significant, sudden or life threatening deterioration of the cardiovascular system(s) required my full and direct attention, intervention and personal management. The aggregate critical care time was [33] minutes. This time is in addition to time spent performing reported procedures but includes the following: [x] Data Review and interpretation [x] Patient assessment and monitoring of vital signs [x] Documentation [x] Medication orders and management
[2022-02-14] MEDS: HEPARIN/ 0.45% NACL DRIP 25,000 UNIT/500 ML BAG IV SCH (19:18)
--- NOTE | 2022-02-14 21:35 | Electrocardiograph Report ---
[facility] Test Date: 2022-02-13 Test Time: 18:54:33 Pat Name: LIBRADO ENRIQUEZ Department: Room: A253 1 Gender: F Crime Data Specialist: FILIBERTO : 1965 Requested By: SORAYA LONG Order Number: [id number] Reading MD: Jan Lazcano Measurements Intervals [place] Rate: 64 P: 50 [place]: 183 QRS: 18 QRSD: 108 T: 96 QT: 418 QTc: 432 Interpretive Statements Normal sinus rhythm Subtle ST elevation, findings suggest acute inferior infarct No previous ECGs for comparison Electronically Signed On 02-14-2022 21:35:01 EDT by Jan Lazcano
--- NOTE | 2022-02-14 21:36 | Electrocardiograph Report ---
[facility] Test Date: 2022-02-13 Test Time: 20:05:58 Pat Name: LIBRADO ENRIQUEZ Department: Room: A253 1 Gender: F Hotel Front Desk Agent: CHLOE : 1965 Requested By: OWEN MENG Order Number: [id number] Reading MD: Jan Lazcano Measurements Intervals [place] Rate: 66 P: 41 [place]: 174 QRS: -26 QRSD: 106 T: 82 QT: 454 QTc: 474 Interpretive Statements Sinus rhythm Probable left atrial enlargement Left ventricular hypertrophy Acute inferior STEMI No previous ECG available for comparison Electronically Signed On 02-14-2022 21:35:40 EDT by Jan Lazcano
--- NOTE | 2022-02-14 21:40 | Electrocardiograph Report ---
[facility] Test Date: 2022-02-14 Test Time: 00:00:46 Pat Name: LIBRADO ENRIQUEZ Department: Room: A253 1 Gender: F Clinical Applications Specialist: [id number] : 1965 Requested By: NESHA BLEDSOE Order Number: [id number] Reading MD: Jan Lazcano Measurements Intervals [place] Rate: 67 P: 46 [place]: 183 QRS: -7 QRSD: 105 T: 91 QT: 450 QTc: 475 Interpretive Statements Very poor quality ECG Sinus rhythm Probable left atrial enlargement Left ventricular hypertrophy INFERIOR INFARCT, ACUTE Compared to ECG 02/13/2022 20:05:58 No significant changes Electronically Signed On 02-14-2022 21:39:54 EDT by Jan Lazcano
--- NOTE | 2022-02-14 21:42 | Electrocardiograph Report ---
[facility] Test Date: 2022-02-14 Test Time: 07:03:35 Pat Name: LIBRADO ENRIQUEZ Department: Room: A253 1 Gender: F Belt Turner: ZION : 1965 Requested By: NESHA BLEDSOE Order Number: [id number] Reading MD: Jan Lazcano Measurements Intervals [place] Rate: 70 P: 44 [place]: 186 QRS: -24 QRSD: 106 T: QT: 398 QTc: 429 Interpretive Statements Sinus rhythm Probable left atrial enlargement Inferior infarct of undetermined age Compared to ECG 02/14/2022 00:00:46 Changes of acute inferior PA in evolution Electronically Signed On 02-14-2022 21:42:38 EDT by Jan Lazcano
--- NOTE | 2022-02-14 21:47 | Electrocardiograph Report ---
[facility] Test Date: 2022-02-14 Test Time: 10:12:05 Pat Name: LIBRADO ENRIQUEZ Department: Room: A253 1 Gender: F Body Liner: ZION : 1965 Requested By: OWEN MENG Order Number: [id number] Reading MD: Jan Lazcano Measurements Intervals [place] Rate: 73 P: 43 [place]: 181 QRS: -24 QRSD: 106 T: -12 QT: 439 QTc: 482 Interpretive Statements Sinus rhythm Probable left atrial enlargement Inferior infarct, recent Compared to ECG 02/14/2022 07:03:35 No significant change Electronically Signed On 02-14-2022 21:46:34 EDT by Jan Lazcano
[2022-02-15] MEDS: NITROGLYCERIN DRIP 50 MG/250 ML BOTTLE IV SCH ×2 (00:24→05:50)
[2022-02-15] MEDS: HYDROcodone/ACETAMINOPHEN 5-325 MG TAB PO PRN (00:24)
[2022-02-15] MEDS: HYDROmorphone 0.5 MG/0.5 ML INJ IV PRN ×6 (03:20→23:02)
[2022-02-15 04:35] LABS: Hematocrit 36.1 % (30.3-42.9); Hemoglobin 11.9 gm/dl (10.1-14.3); Mean Corpuscular HGB Conc 33 % (30-34); Mean Corpuscular Volume 87 fl (79-97); Platelet Count 280 K/mm3 (140-440); Red Blood Count 4.14 M/mm3 (3.65-5.03); Red Cell Distribution Width 17.3 % (13.2-15.2)
[2022-02-15 04:46] LABS: INR 1.01 (0.87-1.13)
[2022-02-15 04:54] LABS: Blood Urea Nitrogen 5 mg/dL (7-17); Calcium 7.7 mg/dL (8.4-10.2); Hemolysis Index 11
[2022-02-15 04:56] LABS: BUN/Creatinine Ratio 8
[2022-02-15] MEDS ORDERED: POTASSIUM PHOSPHATE 30 MMOL in SODIUM CHLORIDE 0.9% 500 ML 500 ML IV SCH (08:00)
[2022-02-15] MEDS: METOPROLOL TARTRATE 50 MG TAB PO SCH ×2 (08:30→17:08)
[2022-02-15] MEDS: INSULIN LISPRO 100 UNIT/ML SUB-Q SCH ×4 (08:55→21:41)
--- NOTE | 2022-02-15 09:01 | Progress Note ---
Assessment and Plan STEMI s/p unsuccesful PCI Acute Coronary Syndrome H/o Atrial Fibrillation on Flecainide for rate control Hyponatremia Type 2 Diabetes Mellitus History of Bipolar Disorder Per Cardiology no further interventions planned. Can transfer telemetry for ongoing care - 02/13 s/p emergent LHC- revealed RCA small non dominant. Mild to moderate LV dysfunction with anterior apical inferior apical hypokinesis with left main large and patent LAD is a large Vessel patent sluggish flow diagonal 1 diagonal 2 patent circumflex is a dominant vessel proximal to mid patent OM1 OM 2 patent L PDA is a small vessel but occluded. Multiple attempts for balloon angioplasty was made but is too small for stent placement and only was able to restore KANDICE I flow despite multiple attempts. -On ASA, Plavix, and BB and long acting nitrates -Accuchecks, glycemic control. target blood glucose 140-180mg/dL. Avoid hypoglycemia -Avoid delirium, patient has a history of bipolar disorder -Maintain sleep wake cycle -Discontinue Laar catheter, not clinically indicated -Resume chronic home medications as clinically indicated Subjective Date of service: 02/15/22 Interval history: 56-year-old female with known past medical history of paroxysmal atrial fibrillation on flecainide at home, diabetes mellitus, Asthma and Bipolar disorder admitted for STEMI s/p emergent LHC with unsuccesfull PCI. Seen and examined. Discussed with nursing staff and primary service No adverse overnight events. Chest pain much improved. She denies any shortness of breath, no fevers, no chills, no nausea or vomiting. Objective Vital Signs - 12hr 02/14/22 02/14/22 02/14/22 21:11 21:21 21:30 Temperature Pulse Rate 94 H 93 H 106 H Pulse Rate [ From Monitor] Respiratory 28 H 15 11 L Rate Blood Pressure 105/63 107/57 106/56 O2 Sat by Pulse 96 98 99 Oximetry 02/14/22 02/14/22 02/14/22 21:32 21:41 21:51 Temperature Pulse Rate 95 H 98 H 110 H Pulse Rate [ From Monitor] Respiratory 16 19 Rate Blood Pressure 106/56 107/57 O2 Sat by Pulse 98 97 Oximetry 02/14/22 02/14/22 02/14/22 22:00 22:11 22:21 Temperature Pulse Rate 90 87 87 Pulse Rate [ From Monitor] Respiratory 28 H 24 28 H Rate Blood Pressure 93/60 93/60 100/53 O2 Sat by Pulse 96 96 97 Oximetry 02/14/22 02/14/22 02/14/22 22:30 22:41 22:51 Temperature Pulse Rate 79 89 92 H Pulse Rate [ From Monitor] Respiratory 22 25 H 18 Rate Blood Pressure 95/53 95/53 87/52 O2 Sat by Pulse 95 97 97 Oximetry 02/14/22 02/14/22 02/14/22 23:00 23:11 23:21 Temperature Pulse Rate 104 H 88 104 H Pulse Rate [ From Monitor] Respiratory 28 H 30 H 26 H Rate Blood Pressure 79/55 79/55 93/51 O2 Sat by Pulse 95 97 96 Oximetry 02/14/22 02/14/22 02/14/22 23:30 23:40 23:41 Temperature Pulse Rate 103 H 116 H Pulse Rate [ 122 H From Monitor] Respiratory 26 H 16 16 Rate Blood Pressure 100/58 100/58 O2 Sat by Pulse 98 99 98 Oximetry 02/14/22 02/14/22 02/14/22 23:43 23:45 23:51 Temperature Pulse Rate 86 103 H 113 H Pulse Rate [ From Monitor] Respiratory 15 23 Rate Blood Pressure 100/58 99/52 O2 Sat by Pulse 99 98 Oximetry 02/15/22 02/15/22 02/15/22 00:00 00:11 00:21 Temperature Pulse Rate 88 83 86 Pulse Rate [ From Monitor] Respiratory 17 14 14 Rate Blood Pressure 106/54 106/54 106/54 O2 Sat by Pulse 99 99 98 Oximetry 02/15/22 02/15/22 02/15/22 00:30 00:41 00:51 Temperature Pulse Rate 81 83 86 Pulse Rate [ From Monitor] Respiratory 16 27 H 30 H Rate Blood Pressure 115/67 115/67 114/67 O2 Sat by Pulse 99 99 99 Oximetry 02/15/22 02/15/22 02/15/22 01:00 01:11 01:21 Temperature Pulse Rate 86 87 92 H Pulse Rate [ From Monitor] Respiratory 26 H 28 H 25 H Rate Blood Pressure 112/67 112/67 107/64 O2 Sat by Pulse 98 95 95 Oximetry 02/15/22 02/15/22 02/15/22 01:30 01:41 01:51 Temperature Pulse Rate 88 87 90 Pulse Rate [ From Monitor] Respiratory 27 H 26 H 21 Rate Blood Pressure 100/63 100/63 110/62 O2 Sat by Pulse 97 94 96 Oximetry 02/15/22 02/15/22 02/15/22 02:00 02:11 02:21 Temperature Pulse Rate 88 86 83 Pulse Rate [ From Monitor] Respiratory 22 29 H 23 Rate Blood Pressure 101/64 101/64 99/63 O2 Sat by Pulse 94 95 95 Oximetry 02/15/22 02/15/22 02/15/22 02:30 02:41 02:51 Temperature Pulse Rate 89 83 84 Pulse Rate [ From Monitor] Respiratory 25 H 27 H 19 Rate Blood Pressure 106/67 106/67 110/68 O2 Sat by Pulse 96 96 Oximetry 02/15/22 02/15/22 02/15/22 03:00 03:11 03:21 Temperature Pulse Rate 86 87 82 Pulse Rate [ From Monitor] Respiratory 22 21 11 L Rate Blood Pressure 110/69 110/69 118/80 O2 Sat by Pulse 98 96 99 Oximetry 02/15/22 02/15/22 02/15/22 03:30 03:41 03:51 Temperature Pulse Rate 84 84 86 Pulse Rate [ From Monitor] Respiratory 22 14 16 Rate Blood Pressure 100/55 100/55 111/63 O2 Sat by Pulse 98 96 97 Oximetry 02/15/22 02/15/22 02/15/22 04:00 04:11 04:21 Temperature Pulse Rate 85 84 85 Pulse Rate [ 86 From Monitor] Respiratory 15 30 H 30 H Rate Blood Pressure 101/59 101/59 98/62 O2 Sat by Pulse 97 97 96 Oximetry 02/15/22 02/15/22 02/15/22 04:23 04:30 04:41 Temperature 98.9 F Pulse Rate 84 80 Pulse Rate [ From Monitor] Respiratory 28 H 28 H Rate Blood Pressure 101/60 101/60 O2 Sat by Pulse 97 97 Oximetry 02/15/22 02/15/22 02/15/22 04:51 05:00 05:11 Temperature Pulse Rate 83 83 85 Pulse Rate [ From Monitor] Respiratory 24 27 H 25 H Rate Blood Pressure 98/62 99/61 99/61 O2 Sat by Pulse 97 97 Oximetry 02/15/22 02/15/22 02/15/22 05:21 05:30 05:44 Temperature Pulse Rate 86 84 87 Pulse Rate [ From Monitor] Respiratory 28 H 26 H 26 H Rate Blood Pressure 101/58 102/64 102/64 O2 Sat by Pulse 97 96 Oximetry 02/15/22 02/15/22 02/15/22 05:55 06:00 06:11 Temperature Pulse Rate 83 82 88 Pulse Rate [ From Monitor] Respiratory 22 29 H 18 Rate Blood Pressure 106/61 105/61 O2 Sat by Pulse 98 97 99 Oximetry 02/15/22 02/15/22 02/15/22 06:21 06:30 06:41 Temperature Pulse Rate 83 85 82 Pulse Rate [ From Monitor] Respiratory 21 28 H 24 Rate Blood Pressure 114/63 106/61 114/63 O2 Sat by Pulse 97 96 97 Oximetry 02/15/22 02/15/22 02/15/22 06:51 07:00 07:11 Temperature Pulse Rate 79 81 81 Pulse Rate [ From Monitor] Respiratory 27 H 22 26 H Rate Blood Pressure 99/62 99/57 99/57 O2 Sat by Pulse 97 96 97 Oximetry 02/15/22 02/15/22 02/15/22 07:21 07:30 07:40 Temperature Pulse Rate 81 79 83 Pulse Rate [ From Monitor] Respiratory 28 H 27 H 21 Rate Blood Pressure 102/60 105/65 99/62 O2 Sat by Pulse 96 97 96 Oximetry 02/15/22 02/15/22 02/15/22 07:50 08:00 08:11 Temperature Pulse Rate 82 80 76 Pulse Rate [ From Monitor] Respiratory 22 22 29 H Rate Blood Pressure 105/65 108/65 108/65 O2 Sat by Pulse 98 97 98 Oximetry 02/15/22 02/15/22 02/15/22 08:21 08:30 08:41 Temperature Pulse Rate 80 83 80 Pulse Rate [ From Monitor] Respiratory 15 11 L 22 Rate Blood Pressure 104/64 101/62 101/62 O2 Sat by Pulse 99 98 Oximetry 02/15/22 08:51 Temperature Pulse Rate 78 Pulse Rate [ From Monitor] Respiratory 24 Rate Blood Pressure 105/65 O2 Sat by Pulse 98 Oximetry Constitutional: no acute distress, alert Eyes: non-icteric ENT: oropharynx moist Neck: supple, no lymphadenopathy Effort: normal Ascultation: Bilateral: clear Cardiovascular: regular rate and rhythm, other (S1,S2) Gastrointestinal: normoactive bowel sounds, soft, non-tender, non-distended Integumentary: normal Extremities: no cyanosis, no edema Neurologic: normal mental status, non-focal exam, pupils equal and round, CN II- XII normal, motor strength normal and Psychiatric: mood appropriate, affect normal CBC and BMP: 02/15/22 03:51 02/15/22 03:51 ABG, PT/INR, D-dimer: PT/INR, D-dimer PT 14.4 Sec. (12.2-14.9) 02/15/22 03:51 INR 1.01 (0.87-1.13) 02/15/22 03:51 Abnormal lab findings: Abnormal Labs 02/13/22 02/13/22 02/13/22 19:18 19:18 23:04 WBC 12.3 H 12.4 H RBC 5.36 H Hgb 15.1 H Hct 47.0 H RDW 17.3 H 17.4 H Lymph % (Auto) 12.8 L Seg Neutrophils % 76.4 H 83.0 H Seg Neutrophils # 9.4 H 10.3 H Heparin Anti-Xa Level Sodium 136 L Chloride 96.2 L Carbon Dioxide BUN Creatinine 1.5 H Glucose 154 H POC Glucose Calcium Phosphorus Troponin T HDL Cholesterol 02/13/22 02/14/22 02/14/22 23:04 03:00 03:00 WBC 11.4 H RBC Hgb Hct RDW 17.2 H Lymph % (Auto) 11.9 L Seg Neutrophils % 82.1 H Seg Neutrophils # 9.4 H Heparin Anti-Xa Level Sodium 132 L 131 L Chloride 95.1 L Carbon Dioxide 21 L BUN Creatinine Glucose 145 H 121 H POC Glucose Calcium 8.0 L Phosphorus Troponin T 0.488 H* D HDL Cholesterol 38 L 02/14/22 02/15/22 02/15/22 17:32 03:51 03:51 WBC RBC Hgb Hct RDW 17.3 H Lymph % (Auto) Seg Neutrophils % Seg Neutrophils # Heparin Anti-Xa Level < 0.10 L Sodium Chloride Carbon Dioxide BUN Creatinine Glucose POC Glucose 137 H Calcium Phosphorus Troponin T HDL Cholesterol 02/15/22 03:51 WBC RBC Hgb Hct RDW Lymph % (Auto) Seg Neutrophils % Seg Neutrophils # Heparin Anti-Xa Level Sodium Chloride Carbon Dioxide BUN 5 L Creatinine Glucose 102 H POC Glucose Calcium 7.7 L Phosphorus 2.20 L Troponin T HDL Cholesterol Allied health notes reviewed: nursing
[2022-02-15] MEDS: ASPIRIN 81 MG TAB CHEW PO SCH (09:06)
[2022-02-15] MEDS: CLOPIDOGREL 75 MG TAB PO SCH (09:07)
[2022-02-15] MEDS: FAMOTIDINE 20 MG TAB PO SCH (09:07)
[2022-02-15] MEDS ORDERED: ACETAMINOPHEN 325 MG TAB PO PRN (09:58)
--- NOTE | 2022-02-15 10:48 | Progress Note ---
Assessment and Plan - Patient Problems (1) Takotsubo syndrome Current Visit: Yes Status: Acute Plan to address problem: Cardiac catheterization showed patent vessels in the left circumflex dominant system, but with delayed and sluggish flow through the LAD and circumflex systems. A left ventriculogram showed akinesis of the mid to distal anterior wall, apex, inferior lateral blevins, with relative sparing of the basal segments of the ventricle. The pattern of left ventricular injury and absence of fixed coronary stenosis suggests acute myocardial injury due to Takotsubo syndrome. Patient will be treated with dual oral antiplatelet therapy, afterload agents, beta-blockers and long-acting nitrates. She is stable to be transferred to telemetry, anticipate discharge in the next 24 to 48 hours. Subjective Date of service: 02/15/22 Principal diagnosis: Acute coronary syndrome Interval history: 56-year-old woman who has a history of paroxysmal atrial fibrillation, on flecainide, presents with chest pain and ECG changes of acute inferior lateral injury. Urgent cardiac catheterization was performed. Cardiac catheterization showed patent vessels in the left circumflex dominant system, but with delayed and sluggish flow through the LAD and circumflex systems. A left ventriculogram showed akinesis of the mid to distal anterior wall, apex, inferior lateral blevins, with relative sparing of the basal segments of the ventricle. Today, the patient looks and feels better, in sinus rhythm, stable hemodynamics. Objective Vital Signs Temp Pulse Pulse Resp BP Pulse Ox 02/15/22 10:11 65 13 88/52 96 02/15/22 10:00 65 17 88/52 96 02/15/22 09:51 69 17 95/55 99 02/15/22 09:41 71 16 93/61 99 02/15/22 09:30 82 13 93/61 97 02/15/22 09:21 79 14 105/65 99 02/15/22 09:11 90 12 103/60 99 02/15/22 09:00 79 14 103/60 99 02/15/22 08:51 78 24 105/65 98 02/15/22 08:41 80 22 101/62 98 02/15/22 08:30 83 11 L 101/62 02/15/22 08:21 80 15 104/64 99 02/15/22 08:11 76 29 H 108/65 98 02/15/22 08:00 98.7 F 80 80 22 108/65 97 02/15/22 07:50 82 22 105/65 98 02/15/22 07:40 83 21 99/62 96 02/15/22 07:30 79 27 H 105/65 97 02/15/22 07:21 81 28 H 102/60 96 02/15/22 07:11 81 26 H 99/57 97 02/15/22 07:00 81 22 99/57 96 02/15/22 06:51 79 27 H 99/62 97 02/15/22 06:41 82 24 114/63 97 02/15/22 06:30 85 28 H 106/61 96 02/15/22 06:21 83 21 114/63 97 02/15/22 06:11 88 18 105/61 99 02/15/22 06:00 82 29 H 106/61 97 02/15/22 05:55 83 22 98 02/15/22 05:44 87 26 H 102/64 96 02/15/22 05:30 84 26 H 102/64 02/15/22 05:21 86 28 H 101/58 97 02/15/22 05:11 85 25 H 99/61 97 02/15/22 05:00 83 27 H 99/61 02/15/22 04:51 83 24 98/62 97 02/15/22 04:41 80 28 H 101/60 97 02/15/22 04:30 84 28 H 101/60 97 02/15/22 04:23 98.9 F 02/15/22 04:21 85 30 H 98/62 96 02/15/22 04:11 84 30 H 101/59 97 02/15/22 04:00 85 86 15 101/59 97 02/15/22 03:51 86 16 111/63 97 02/15/22 03:41 84 14 100/55 96 02/15/22 03:30 84 22 100/55 98 02/15/22 03:21 82 11 L 118/80 99 02/15/22 03:11 87 21 110/69 96 02/15/22 03:00 86 22 110/69 98 02/15/22 02:51 84 19 110/68 96 02/15/22 02:41 83 27 H 106/67 96 02/15/22 02:30 89 25 H 106/67 02/15/22 02:21 83 23 99/63 95 06/13/22 02:11 86 29 H 101/64 95 02/15/22 02:00 88 22 101/64 94 02/15/22 01:51 90 21 110/62 96 02/15/22 01:41 87 26 H 100/63 94 02/15/22 01:30 88 27 H 100/63 97 02/15/22 01:21 92 H 25 H 107/64 95 02/15/22 01:11 87 28 H 112/67 95 02/15/22 01:00 86 26 H 112/67 98 02/15/22 00:51 86 30 H 114/67 99 02/15/22 00:41 83 27 H 115/67 99 02/15/22 00:30 81 16 115/67 99 02/15/22 00:21 86 14 106/54 98 02/15/22 00:11 83 14 106/54 99 02/15/22 00:00 88 17 106/54 99 02/14/22 23:51 113 H 23 99/52 98 02/14/22 23:45 103 H 02/14/22 23:43 86 15 100/58 99 02/14/22 23:41 116 H 16 100/58 98 02/14/22 23:40 122 H 16 99 02/14/22 23:30 103 H 26 H 100/58 98 02/14/22 23:21 104 H 26 H 93/51 96 02/14/22 23:11 88 30 H 79/55 97 02/14/22 23:00 104 H 28 H 79/55 95 02/14/22 22:51 92 H 18 87/52 97 02/14/22 22:41 89 25 H 95/53 97 02/14/22 22:30 79 22 95/53 95 02/14/22 22:21 87 28 H 100/53 97 02/14/22 22:11 87 24 93/60 96 02/14/22 22:00 90 28 H 93/60 96 02/14/22 21:51 110 H 19 107/57 97 02/14/22 21:41 98 H 16 106/56 98 02/14/22 21:32 95 H 02/14/22 21:30 106 H 11 L 106/56 99 02/14/22 21:21 93 H 15 107/57 98 02/14/22 21:11 94 H 28 H 105/63 96 02/14/22 21:00 91 H 31 H 105/63 97 02/14/22 20:51 89 19 101/56 99 02/14/22 20:41 94 H 12 95/62 99 02/14/22 20:30 90 16 95/62 02/14/22 20:26 99.5 F 02/14/22 20:21 84 16 101/56 98 02/14/22 20:11 84 25 H 105/66 98 02/14/22 20:01 82 13 105/66 99 02/14/22 19:51 76 11 L 99 02/14/22 19:41 96 H 13 80/53 98 02/14/22 19:33 77 13 99 02/14/22 19:30 77 9 L 80/53 97 02/14/22 19:23 76 02/14/22 19:21 74 13 82/53 98 02/14/22 19:11 76 16 91/52 98 02/14/22 19:00 77 17 91/52 93 02/14/22 18:51 78 25 H 87/49 96 02/14/22 18:41 76 17 93/52 98 02/14/22 18:30 76 15 93/52 98 02/14/22 18:21 81 15 99/54 99 02/14/22 18:11 84 13 96/55 98 02/14/22 18:00 80 12 96/55 99 02/14/22 17:51 75 10 L 87/54 99 02/14/22 17:41 76 10 L 101/62 99 02/14/22 17:30 80 14 101/62 98 02/14/22 17:21 76 16 100/59 97 02/14/22 17:11 79 18 94/53 97 02/14/22 17:10 79 94/53 02/14/22 17:00 79 22 94/53 98 02/14/22 16:51 79 14 95/57 98 02/14/22 16:41 83 13 101/69 96 02/14/22 16:30 84 13 112/62 97 02/14/22 16:21 90 21 99/63 99 02/14/22 16:10 85 13 101/69 97 02/14/22 16:00 85 70 14 101/69 98 02/14/22 15:51 85 17 110/79 99 02/14/22 15:41 85 15 94/56 98 02/14/22 15:30 72 18 92/52 98 02/14/22 15:21 76 16 94/56 98 02/14/22 15:11 77 18 96/53 97 02/14/22 15:00 75 12 96/53 98 02/14/22 14:51 79 12 91/48 96 02/14/22 14:41 73 13 105/60 97 02/14/22 14:30 74 12 85/55 96 02/14/22 14:21 77 13 105/60 98 02/14/22 14:11 76 17 99/58 98 02/14/22 14:00 76 16 99/58 99 02/14/22 13:51 74 12 96/55 97 02/14/22 13:41 77 14 99/59 96 02/14/22 13:30 74 26 H 99/59 96 02/14/22 13:21 77 26 H 98/59 96 02/14/22 13:11 80 20 97/58 96 02/14/22 13:00 77 26 H 97/58 95 02/14/22 12:51 78 22 99/60 95 02/14/22 12:41 76 20 101/58 98 02/14/22 12:30 73 21 101/58 97 02/14/22 12:21 78 27 H 98/58 95 02/14/22 12:11 76 14 99/57 96 02/14/22 12:00 74 74 12 99/57 98 02/14/22 11:51 74 22 93/55 94 02/14/22 11:41 75 15 108/51 95 02/14/22 11:30 79 16 108/51 96 02/14/22 11:21 77 25 H 105/64 97 02/14/22 11:11 77 14 98/57 96 02/14/22 11:00 73 15 98/57 95 02/14/22 10:51 78 15 103/60 94 - Physical Examination General: No Apparent Distress HEENT: Positive: PERRL, EOMI Neck: Positive: neck supple Cardiac: Positive: Reg Rate and Rhythm Lungs: Positive: Decreased Breath Sounds Neuro: Positive: Grossly Intact Abdomen: Positive: Soft Skin: Positive: Clear Incision: Cardiac Cath Site (right radial 2+, hand warm 5/5 strength) Extremities: Absent: edema - Labs and Meds Coagulation 02/15/22 Range/Units 03:51 PT 14.4 (12.2-14.9) Sec. INR 1.01 (0.87-1.13) CBC 02/15/22 Range/Units 03:51 WBC 8.6 (4.5-11.0) K/mm3 RBC 4.14 (3.65-5.03) M/mm3 Hgb 11.9 (10.1-14.3) gm/dl Hct 36.1 (30.3-42.9) % Plt Count 280 (140-440) K/mm3 Comprehensive Metabolic Panel 02/15/22 Range/Units 03:51 Sodium 139 D (137-145) mmol/L Potassium 3.6 (3.6-5.0) mmol/L Chloride 103.1 (98-107) mmol/L Carbon Dioxide 24 (22-30) mmol/L BUN 5 L (7-17) mg/dL Creatinine 0.6 (0.6-1.2) mg/dL Glucose 102 H (65-100) mg/dL Calcium 7.7 L (8.4-10.2) mg/dL - Imaging and Cardiology Cardiac cath: report reviewed (eft heart cath revealed RCA small nondominant. Mild to moderate LV dysfunction with anterior apical inferior apical hypokinesis with left main large and patent LAD is a large Vessel patent sluggish flow d iagonal 1 diagonal 2 patent circumflex is a dominant vessel proximal to mid patent OM1 OM 2 pat)
[2022-02-15] MEDS ORDERED: DEXTROSE 50% IN WATER (25GM) 50 ML SYRINGE IV PRN (13:36)
--- NOTE | 2022-02-15 13:43 | Progress Note ---
<HELENABC NaveenRoma - Last Filed: 02/15/22 14:16> Assessment and Plan Assessment and plan: This is a 56-year-old male with paroxysmal atrial fibrillation on flecainide at home, diabetes mellitus, Asthma and Bipolar disorder admitted for STEMI s/p emergent LHC with unsuccesfull PCI. Neuro: h/o bipolar -Reorientation as needed -Maintain sleep-wake cycle -As needed analgesia -Per patient she was taken off of Seroquel and Wellbutrin by psychiatrist -Does not take any medication at this time -Recommend outpatient follow-up for maintenance medications for bipolar -Per patient currently undergoing gender transition with weekly testerone injections (every Tuesday) Cardiac: STEMI, Acute Coronary Syndrome, Takotsubo syndrome, h/o Atrial Fibrillation on Flecainide for rate controlled -Cardiology and CCM consulted, appreciate recommendations -02/13 s/p emergent LHC- revealed RCA small nondominant. Mild to moderate LV dysfunction with anterior apical inferior apical hypokinesis with left main large and patent LAD is a large Vessel patent sluggish flow diagonal 1 diagonal 2 patent circumflex is a dominant vessel proximal to mid patent OM1 OM 2 patent L PDA is a small vessel but occluded. Multiple attempts for balloon angioplasty was made but is too small for stenting and only was able to restore KANDICE I flow despite multiple attempts. -s/p Aggrastat drip -Nitro and heparin gtts -Aspirin, Plavix, metoprolol, Imdur, lisinopril, statin -As needed Nitrostat -Blood pressure monitor per protocol -Lipid panel noted Respiratory: h/o asthma -Supplemental oxygen as needed -Pulmonary hygiene -SPO2 monitor per protocol GI: Obesity -24 hours -3533 mL -PPI -CC cardiac diet -BR: colace : Hypophosphatemia, hyponatremia (resolved), metabolic acidosis (resolved) -Monitor intake and output -Renally dose medications -Avoid nephrotoxic medications -Repleat phosphate -Trend BMP ID: NAD -f/u blood culture -Monitor WBC and temperature curve Endo: h/o DM -Avoid hypoglycemia -SSI -Accu-Cheks ACHS Heme: NAD -Trend CBC -Transfuse hemoglobin less than 7 -SCDs to BLE while in bed The high probability of a clinically significant, sudden or life threatening deterioration of the [multiple] system(s) required my full and direct attention, intervention and personal management. The aggregate critical care time was [60] minutes. This time is in addition to time spent performing reported procedures but includes the following: [x] Data Review and interpretation [x] Patient assessment and monitoring of vital signs [x] Documentation [x] Medication orders and management Disposition Plan: Transfer to floor Total Time Spent with Patient (Minutes): 60 History Interval history: This is a 56-year-old female who is transitioning to male with atrial fibrillation, DM, asthma, bipolar disorder who presents to the emergency d [facility] on 02/13 with complaints of chest pain which started 40 minutes prior to arrival to the emergency department described as tightness which was substernal, 10/10 in severity, and shortness of breath. On arrival to the emergency department patient initial ECG was not concerning for STEMI however the patient continued to have chest pain and ECG was repeated which had a concerning changes in the inferior leads. Cardiology consulted in the emergency department and patient was taken to the [facility] which showed a patent LAD, nondominant RCA, patent left circumflex and occluded left PDA, multiple vessels were noted to have sluggish flow and left PDA angioplasty was attempted but stent was not placed due to small vessel size. Patient was admitted to the hospitalist service with consults to cardiology, CCM to the ICU. Hospital Course to Date: 02/14: Patient is still complaining on chest pressure this am. On Nitro, Aggrastat, and heparin gtts. Per cardio, ACS event is most likely embolic in nature, plan to medically manage for next 48-72 hours and possible repeat cardiac catheterization pending clinical course prior to discharge. On ASA, Plavix, and BB per Cardio and continue drips per Cardio. 2D echo pending. PRN Analgesia for pain control. 02/15: Patient will be transferred to the floor. Patient remains on nitro and heparin drip. Per cardiology, possible discharge in 24 to 48 hours. At the time my exam patient does not complain of any chest pain Hospitalist Physical - Constitutional Vitals: Temp Pulse Resp BP Pulse Ox 98.7 F 72 32 H 100/60 96 02/15/22 12:00 02/15/22 13:00 02/15/22 13:00 02/15/22 13:00 02/15/22 13:00 General appearance: Present: no acute distress, well-nourished, obese - EENT Eyes: Present: PERRL, EOM intact ENT: hearing intact, clear oral mucosa - Neck Neck: Present: normal ROM - Respiratory Respiratory effort: normal Respiratory: bilateral: CTA - Cardiovascular Rhythm: regular Heart Sounds: Present: S1 & S2. Absent: systolic murmur, diastolic murmur - Extremities Extremities: no ischemia, pulses intact, pulses symmetrical, No edema, normal temperature, normal color, Full ROM Peripheral Pulses: within normal limits - Abdominal General gastrointestinal: soft, non-tender, non-distended, normal bowel sounds - Integumentary Integumentary: Present: warm, dry - Psychiatric Psychiatric: cooperative - Neurologic Neurologic: CNII-XII intact, no focal deficits, moves all extremities - Allied Health Allied health notes reviewed: nursing, RT, social work HEART Score - HEART Score EKG: Non-specific Age: 45-65 Risk factors: 1-2 risk factors Troponin: Troponin T 0.488 ng/mL (0.00-0.029) H* D 02/14/22 03:00 Troponin: < normal limit Results - Labs CBC & Chem 7: 02/15/22 03:51 02/15/22 03:51 Labs: Laboratory Last Values WBC 8.6 K/mm3 (4.5-11.0) 02/15/22 03:51 RBC 4.14 M/mm3 (3.65-5.03) 02/15/22 03:51 Hgb 11.9 gm/dl (10.1-14.3) 02/15/22 03:51 Hct 36.1 % (30.3-42.9) 02/15/22 03:51 MCV 87 fl (79-97) 02/15/22 03:51 MCH 29 pg (28-32) 02/15/22 03:51 MCHC 33 % (30-34) 02/15/22 03:51 RDW 17.3 % (13.2-15.2) H 02/15/22 03:51 Plt Count 280 K/mm3 (140-440) 02/15/22 03:51 Lymph % (Auto) 11.9 % (13.4-35.0) L 02/14/22 03:00 [place] % (Auto) 5.2 % (0.0-7.3) 02/14/22 03:00 Eos % (Auto) 0.0 % (0.0-4.3) 02/14/22 03:00 Baso % (Auto) 0.8 % (0.0-1.8) 02/14/22 03:00 Lymph # (Auto) 1.4 K/mm3 (1.2-5.4) 02/14/22 03:00 [place] # (Auto) 0.6 K/mm3 (0.0-0.8) 02/14/22 03:00 Eos # (Auto) 0.0 K/mm3 (0.0-0.4) 02/14/22 03:00 Baso # (Auto) 0.1 K/mm3 (0.0-0.1) 02/14/22 03:00 Seg Neutrophils % 82.1 % (40.0-70.0) H 02/14/22 03:00 Seg Neutrophils # 9.4 K/mm3 (1.8-7.7) H 02/14/22 03:00 PT 14.4 Sec. (12.2-14.9) 02/15/22 03:51 INR 1.01 (0.87-1.13) 02/15/22 03:51 Heparin Anti-Xa Level < 0.10 U.I./ml (0.3-0.7) L 02/15/22 11:13 Sodium 139 mmol/L (137-145) D 02/15/22 03:51 Potassium 3.6 mmol/L (3.6-5.0) 02/15/22 03:51 Chloride 103.1 mmol/L (98-107) 02/15/22 03:51 Carbon Dioxide 24 mmol/L (22-30) 02/15/22 03:51 Anion Gap 16 mmol/L 02/15/22 03:51 BUN 5 mg/dL (7-17) L 02/15/22 03:51 Creatinine 0.6 mg/dL (0.6-1.2) 02/15/22 03:51 Estimated GFR > 60 ml/min 02/15/22 03:51 BUN/Creatinine Ratio 8 % 02/15/22 03:51 Glucose 102 mg/dL (65-100) H 02/15/22 03:51 POC Glucose 116 mg/dL (70-105) H 02/15/22 11:23 Calcium 7.7 mg/dL (8.4-10.2) L 02/15/22 03:51 Phosphorus 2.20 mg/dL (2.5-4.5) L 02/15/22 03:51 Magnesium 2.00 mg/dL (1.7-2.3) 02/15/22 03:51 Total Creatine Kinase 95 units/L (30-135) 02/13/22 19:18 CK-MB (CK-2) 2.2 ng/mL (0.0-4.0) 02/13/22 19:18 CK-MB (CK-2) Rel Index 2.3 (0-4) 02/13/22 19:18 Troponin T 0.488 ng/mL (0.00-0.029) H* D 02/14/22 03:00 Triglycerides 106 mg/dL (2-149) 02/14/22 03:00 Cholesterol 139 mg/dL (50-199) 02/14/22 03:00 LDL Cholesterol Direct 89 mg/dL (50-130) 02/14/22 03:00 HDL Cholesterol 38 mg/dL (40-59) L 02/14/22 03:00 Cholesterol/HDL Ratio 3.65 % 02/14/22 03:00 Active Medications - Current Medications Current Medications: Generic Name Dose Route Start Last Admin Trade Name Freq PRN Reason Stop Dose Admin Acetaminophen 650 mg 02/15/22 09:58 Acetaminophen 325 Mg Tab PO Q6H PRN Pain MILD(1-3)/Fever >100.5/[place] Aspirin 81 mg 02/14/22 10:00 02/15/22 09:06 Aspirin 81 Mg Tab Chew PO 81 mg QDAY DEMI Administration Atorvastatin Calcium 80 mg 02/14/22 22:00 02/14/22 21:07 Atorvastatin 40 Mg Tab PO 80 mg QHS DEMI Administration Clopidogrel Bisulfate 75 mg 02/14/22 10:00 02/15/22 09:07 Clopidogrel 75 Mg Tab PO 75 mg QDAY DEMI Administration Dextrose 0 ml 02/13/22 22:10 Dextrose 50% In Water (25gm) 50 Ml Syringe IV Q30MIN PRN Hypoglycemia Protocol Dextrose 50 ml 02/15/22 13:36 Dextrose 50% In Water (25gm) 50 Ml Syringe IV Q30MIN PRN Hypoglycemia Protocol Docusate Sodium 100 mg 02/15/22 22:00 Docusate Sodium 100 Mg Cap PO BID [facility] Famotidine 20 mg 02/15/22 10:00 02/15/22 09:07 Famotidine 20 Mg Tab PO 20 mg QDAY [facility] Administration Hydromorphone HCl 0.25 mg 02/13/22 22:10 02/15/22 13:17 Hydromorphone 0.5 Mg/0.5 Ml Inj IV 0.25 mg Q3H PRN Administration Pain, Moderate (4-6) Heparin Sodium/Sodium Chloride 25,000 unit in 500 mls @ 20 mls/hr 02/13/22 21:00 02/15/22 05:06 Heparin/ 0.45% Nacl-25,000 Unit/500 Ml IV 02/15/22 20:59 1,300 units/hr TITRATE [facility] 26 mls/hr Titration Protocol 1,000 UNITS/HR Insulin Human Lispro 0 unit 02/14/22 07:30 02/15/22 11:31 Insulin Lispro 100 Unit/Ml SUB-Q Not Given ACHS [facility] Protocol Isosorbide Mononitrate 30 mg 02/15/22 11:00 02/15/22 11:18 Isosorbide Mononitrate Er 30 Mg Tab PO 30 mg QDAY [facility] Administration Lisinopril 2.5 mg 02/16/22 10:00 Lisinopril 5 Mg Tab PO QDAY [facility] Magnesium Hydroxide 30 ml 02/13/22 22:10 Magnesium Hydroxide (Mom) Oral Liqd Udc PO Q4H PRN Constipation Metoprolol Tartrate 50 mg 02/14/22 08:00 02/15/22 08:30 Metoprolol Tartrate 50 Mg Tab PO 50 mg BID@0800,1700 [facility] Administration Nitroglycerin 0.4 mg 02/13/22 19:47 Nitroglycerin 0.4 Mg Tab Subl SL .Q5MIN PRN Chest Pain Sodium Chloride 10 ml 02/13/22 23:00 02/15/22 09:05 Sodium Chloride 0.9% 10 Ml Flush Syringe IV 10 ml BID DEMI Administration Sodium Chloride 10 ml 02/13/22 22:25 Sodium Chloride 0.9% 10 Ml Flush Syringe IV PRN PRN LINE FLUSH Tramadol HCl 50 mg 02/13/22 22:10 Tramadol 50 Mg Tab PO Q6H PRN Pain, Moderate (4-6) Nutrition/Malnutrition Assess - Dietary Evaluation Nutrition/Malnutrition Findings: Nutrition Notes Start: 02/14/22 11:53 Freq: Status: Active Protocol: Document 02/14/22 11:53 CANDIDO (Rec: 02/14/22 11:56 CANDIDO [id number]) Nutrition Notes Need for Assessment generated from: MD Order,Education Initial or Follow up Brief Note Current Diagnosis Diabetes Other Pertinent Diagnosis Acute coronary syndrome/Chest pain Current Diet Cardiac/Consistent CHO Subjective/Other Information RD consulted for diet education. BP and BG reasonably controlled. PMHx includes afib, asthma and bipolar D/O. Pt underwent cardiac catheterization last pm. Burn Absent Trauma Absent Minimum of two criteria No Nutrition Intervention Follow-Up By: 02/18/22 Additional Comments F/U: intakes, diet education needs <MARCIN FINCH - Last Filed: 02/16/22 06:03> Assessment and Plan Assessment and plan: I saw and evaluated the patient. I agree with the findings and the plan of care as documented in the Nurse Practitioner's~note, with the following corrections and additions. Hospitalist Physical - Constitutional Vitals: Temp Pulse Resp BP Pulse Ox 98.9 F 77 25 H 117/80 93 02/16/22 04:00 02/16/22 05:00 02/16/22 05:00 02/16/22 05:00 02/16/22 05:00 HEART Score - HEART Score Troponin: Troponin T 0.488 ng/mL (0.00-0.029) H* D 02/14/22 03:00 Results - Labs CBC & Chem 7: 02/16/22 04:13 02/16/22 04:13 Labs: Laboratory Last Values WBC 8.9 K/mm3 (4.5-11.0) 02/16/22 04:13 RBC 4.19 M/mm3 (3.65-5.03) 02/16/22 04:13 Hgb 11.9 gm/dl (10.1-14.3) 02/16/22 04:13 Hct 36.4 % (30.3-42.9) 02/16/22 04:13 MCV 87 fl (79-97) 02/16/22 04:13 MCH 28 pg (28-32) 02/16/22 04:13 MCHC 33 % (30-34) 02/16/22 04:13 RDW 17.5 % (13.2-15.2) H 02/16/22 04:13 Plt Count 283 K/mm3 (140-440) 02/16/22 04:13 Lymph % (Auto) 11.9 % (13.4-35.0) L 02/14/22 03:00 [place] % (Auto) 5.2 % (0.0-7.3) 02/14/22 03:00 Eos % (Auto) 0.0 % (0.0-4.3) 02/14/22 03:00 Baso % (Auto) 0.8 % (0.0-1.8) 02/14/22 03:00 Lymph # (Auto) 1.4 K/mm3 (1.2-5.4) 02/14/22 03:00 [place] # (Auto) 0.6 K/mm3 (0.0-0.8) 02/14/22 03:00 Eos # (Auto) 0.0 K/mm3 (0.0-0.4) 02/14/22 03:00 Baso # (Auto) 0.1 K/mm3 (0.0-0.1) 02/14/22 03:00 Seg Neutrophils % 82.1 % (40.0-70.0) H 02/14/22 03:00 Seg Neutrophils # 9.4 K/mm3 (1.8-7.7) H 02/14/22 03:00 PT 14.4 Sec. (12.2-14.9) 02/15/22 03:51 INR 1.01 (0.87-1.13) 02/15/22 03:51 Heparin Anti-Xa Level 0.33 U.I./ml (0.3-0.7) 02/16/22 01:43 Sodium 138 mmol/L (137-145) 02/16/22 04:13 Potassium 3.7 mmol/L (3.6-5.0) 02/16/22 04:13 Chloride 102.7 mmol/L (98-107) 02/16/22 04:13 Carbon Dioxide 25 mmol/L (22-30) 02/16/22 04:13 Anion Gap 14 mmol/L 02/16/22 04:13 BUN 5 mg/dL (7-17) L 02/16/22 04:13 Creatinine 0.5 mg/dL (0.6-1.2) L 02/16/22 04:13 Estimated GFR > 60 ml/min 02/16/22 04:13 BUN/Creatinine Ratio 10 % 02/16/22 04:13 Glucose 89 mg/dL (65-100) 02/16/22 04:13 POC Glucose 76 mg/dL (70-105) 02/15/22 16:33 Calcium 8.3 mg/dL (8.4-10.2) L 02/16/22 04:13 Phosphorus 2.00 mg/dL (2.5-4.5) L 02/16/22 04:13 Magnesium 2.00 mg/dL (1.7-2.3) 02/15/22 03:51 Total Creatine Kinase 95 units/L (30-135) 02/13/22 19:18 CK-MB (CK-2) 2.2 ng/mL (0.0-4.0) 02/13/22 19:18 CK-MB (CK-2) Rel Index 2.3 (0-4) 02/13/22 19:18 Troponin T 0.488 ng/mL (0.00-0.029) H* D 02/14/22 03:00 Triglycerides 106 mg/dL (2-149) 02/14/22 03:00 Cholesterol 139 mg/dL (50-199) 02/14/22 03:00 LDL Cholesterol Direct 89 mg/dL (50-130) 02/14/22 03:00 HDL Cholesterol 38 mg/dL (40-59) L 02/14/22 03:00 Cholesterol/HDL Ratio 3.65 % 02/14/22 03:00 Lara/IV: Voiding Method Bedside Commode Active Medications - Current Medications Current Medications: Generic Name Dose Route Start Last Admin Trade Name Freq PRN Reason Stop Dose Admin Acetaminophen 650 mg 02/15/22 09:58 02/16/22 00:47 Acetaminophen 325 Mg Tab PO 650 mg Q6H PRN Administration Pain MILD(1-3)/Fever >100.5/[place] Aspirin 81 mg 02/14/22 10:00 02/15/22 09:06 Aspirin 81 Mg Tab Chew PO 81 mg QDAY DEMI Administration Atorvastatin Calcium 80 mg 02/14/22 22:00 02/15/22 21:41 Atorvastatin 40 Mg Tab PO 80 mg QHS DEMI Administration Clopidogrel Bisulfate 75 mg 02/14/22 10:00 02/15/22 09:07 Clopidogrel 75 Mg Tab PO 75 mg QDAY DEMI Administration Dextrose 0 ml 02/13/22 22:10 Dextrose 50% In Water (25gm) 50 Ml Syringe IV Q30MIN PRN Hypoglycemia Protocol Docusate Sodium 100 mg 02/15/22 22:00 02/15/22 21:41 Docusate Sodium 100 Mg Cap PO 100 mg BID DEMI Administration Famotidine 20 mg 02/15/22 10:00 02/15/22 09:07 Famotidine 20 Mg Tab PO 20 mg QDAY [facility] Administration Hydromorphone HCl 0.25 mg 02/13/22 22:10 02/16/22 03:11 Hydromorphone 0.5 Mg/0.5 Ml Inj IV 0.25 mg Q3H PRN Administration Pain, Moderate (4-6) Insulin Human Lispro 0 unit 02/14/22 07:30 02/15/22 21:41 Insulin Lispro 100 Unit/Ml SUB-Q Not Given ACHS [facility] Protocol Isosorbide Mononitrate 30 mg 02/15/22 11:00 02/15/22 11:18 Isosorbide Mononitrate Er 30 Mg Tab PO 30 mg QDAY [facility] Administration Lisinopril 2.5 mg 02/16/22 10:00 Lisinopril 5 Mg Tab PO QDAY [facility] Magnesium Hydroxide 30 ml 02/13/22 22:10 Magnesium Hydroxide (Mom) Oral Liqd Udc PO Q4H PRN Constipation Metoprolol Tartrate 50 mg 02/14/22 08:00 02/15/22 17:08 Metoprolol Tartrate 50 Mg Tab PO 50 mg BID@0800,1700 DEMI Administration Nitroglycerin 0.4 mg 02/13/22 19:47 Nitroglycerin 0.4 Mg Tab Subl SL .Q5MIN PRN Chest Pain Sodium Chloride 10 ml 02/13/22 23:00 02/15/22 21:41 Sodium Chloride 0.9% 10 Ml Flush Syringe IV 10 ml BID DEMI Administration Sodium Chloride 10 ml 02/13/22 22:25 Sodium Chloride 0.9% 10 Ml Flush Syringe IV PRN PRN LINE FLUSH Tramadol HCl 50 mg 02/13/22 22:10 02/15/22 22:23 Tramadol 50 Mg Tab PO 50 mg Q6H PRN Administration Pain, Moderate (4-6) Nutrition/Malnutrition Assess - Dietary Evaluation Nutrition/Malnutrition Findings: Nutrition Notes Start: 02/14/22 11:53 Freq: Status: Active Protocol: Document 02/14/22 11:53 CANDIDO (Rec: 02/14/22 11:56 [facility] [id number]) Nutrition Notes Need for Assessment generated from: MD Order,Education Initial or Follow up Brief Note Current Diagnosis Diabetes Other Pertinent Diagnosis Acute coronary syndrome/Chest pain Current Diet Cardiac/Consistent CHO Subjective/Other Information RD consulted for diet education. BP and BG reasonably controlled. PMHx includes afib, asthma and bipolar D/O. Pt underwent cardiac catheterization last pm. Burn Absent Trauma Absent Minimum of two criteria No Nutrition Intervention Follow-Up By: 02/18/22 Additional Comments F/U: intakes, diet education needs
[2022-02-15] MEDS: HEPARIN/ 0.45% NACL DRIP 25,000 UNIT/500 ML BAG IV SCH ×2 (16:50→17:12)
[2022-02-15] MEDS: DOCUSATE SODIUM 100 MG CAP PO SCH (21:41)
[2022-02-16] MEDS: HYDROmorphone 0.5 MG/0.5 ML INJ IV PRN ×2 (03:11→07:48)
[2022-02-16 05:20] LABS: Hematocrit 36.4 % (30.3-42.9); Hemoglobin 11.9 gm/dl (10.1-14.3); Mean Corpuscular HGB Conc 33 % (30-34); Mean Corpuscular Volume 87 fl (79-97); Platelet Count 283 K/mm3 (140-440); Red Blood Count 4.19 M/mm3 (3.65-5.03); Red Cell Distribution Width 17.5 % (13.2-15.2)
[2022-02-16 05:41] LABS: Blood Urea Nitrogen 5 mg/dL (7-17); Calcium 8.3 mg/dL (8.4-10.2); Hemolysis Index 1
[2022-02-16 05:42] LABS: BUN/Creatinine Ratio 10
[2022-02-16] MEDS: INSULIN LISPRO 100 UNIT/ML SUB-Q SCH (07:35)
[2022-02-16] MEDS: METOPROLOL TARTRATE 50 MG TAB PO SCH (07:47)
[2022-02-16] MEDS ORDERED: LISINOPRIL 5 MG TAB PO SCH (10:00)
[2022-02-16] MEDS: DOCUSATE SODIUM 100 MG CAP PO SCH (10:19)
[2022-02-16] MEDS: ASPIRIN 81 MG TAB CHEW PO SCH (10:19)
[2022-02-16] MEDS: CLOPIDOGREL 75 MG TAB PO SCH (10:19)
[2022-02-16] MEDS: FAMOTIDINE 20 MG TAB PO SCH (10:19)
[2022-02-16] MEDS ORDERED: oxyCODONE /ACETAMINOPHEN 5-325MG TAB PO PRN (10:25)
--- NOTE | 2022-02-16 12:52 | Progress Note ---
Assessment and Plan - Patient Problems (1) Takotsubo syndrome Current Visit: Yes Status: Acute Plan to address problem: Patient presented with chest pain, EKG with inferolateral injury pattern, elevated troponin. Cardiac catheterization showed patent vessels in a left circumflex dominant system, but with delayed and sluggish flow through the LAD and circumflex systems. A left ventriculogram showed akinesis of the mid to distal anterior wall, apex, inferior lateral blevins, with relative sparing of the basal segments of the ventricle. The pattern of left ventricular injury and absence of fixed coronary stenosis suggests acute myocardial injury due to Takotsubo syndrome. Patient will be treated with dual oral antiplatelet therapy, afterload agents, beta-blockers and long-acting nitrates. Patient is stable for discharge on current medical therapy, no further cardiac interventions, follow-up in cardiology office in 1 week. We have recommended that she discontinue flecainide, and instead will be on metoprolol 50 twice daily for paroxysmal atrial fibrillation. As previously reported, she was not on anticoagulation on presentation, and no atrial fibrillation has been seen on monitoring in the hospital. She is discharged on dual oral antiplatelet therapy with aspirin and Plavix. Subjective Date of service: 02/16/22 Principal diagnosis: Acute coronary syndrome Interval history: Patient is comfortable, ambulatory in the room, no chest pain, no shortness of breath. Stable sinus rhythm, systolic blood pressure in the 100s. Objective Vital Signs Temp Pulse Pulse Resp BP Pulse Ox 02/16/22 11:00 69 31 H 99/61 02/16/22 10:34 98.9 F 02/16/22 10:19 64 97/67 02/16/22 10:01 61 34 H 117/78 02/16/22 10:00 67 65 16 98 02/16/22 09:01 62 18 117/78 02/16/22 08:01 86 15 117/78 02/16/22 07:47 82 117/78 02/16/22 07:00 79 27 H 116/66 95 02/16/22 06:00 76 29 H 108/69 94 02/16/22 05:00 77 25 H 117/80 93 02/16/22 04:00 98.9 F 77 19 103/53 94 02/16/22 03:00 78 20 112/69 97 02/16/22 02:00 79 31 H 101/58 92 02/16/22 01:01 82 25 H 112/62 93 02/16/22 00:00 98 F 85 17 128/75 97 02/15/22 23:36 14 98 02/15/22 23:07 94 H 14 120/78 97 02/15/22 23:00 86 16 120/78 98 02/15/22 22:41 86 02/15/22 22:01 87 16 139/88 02/15/22 21:41 87 12 117/74 98 02/15/22 21:30 88 12 117/74 99 02/15/22 21:21 88 24 121/76 95 02/15/22 21:11 89 25 H 113/75 96 02/15/22 21:00 82 26 H 113/75 94 02/15/22 20:51 77 25 H 123/80 96 02/15/22 20:41 81 26 H 121/73 95 02/15/22 20:30 75 19 121/73 96 02/15/22 20:21 82 28 H 112/71 97 02/15/22 20:11 77 25 H 124/64 95 02/15/22 20:00 98.2 F 75 27 H 110/67 96 02/15/22 19:51 75 28 H 100/63 95 02/15/22 19:41 76 28 H 120/67 96 02/15/22 19:36 75 14 98 02/15/22 19:30 74 26 H 124/64 97 02/15/22 19:21 73 24 113/76 95 02/15/22 19:11 74 26 H 115/70 97 02/15/22 19:00 80 30 H 115/70 96 02/15/22 18:51 78 28 H 120/67 95 02/15/22 18:41 78 31 H 111/68 96 02/15/22 18:30 77 23 111/68 97 02/15/22 18:21 77 24 106/70 96 02/15/22 18:11 78 18 101/61 97 02/15/22 18:00 80 25 H 101/61 95 02/15/22 17:51 75 12 95/57 96 02/15/22 17:41 80 16 101/62 98 02/15/22 17:30 78 15 101/62 97 02/15/22 17:21 73 30 H 109/66 98 02/15/22 17:11 74 32 H 105/69 96 02/15/22 17:08 77 105/69 02/15/22 17:01 78 21 105/69 99 02/15/22 16:51 76 17 119/68 99 02/15/22 16:41 70 16 106/72 99 02/15/22 16:31 78 14 106/72 99 02/15/22 16:21 76 16 99/71 98 02/15/22 16:11 73 16 104/62 99 02/15/22 16:00 98.4 F 72 72 14 104/62 98 02/15/22 15:51 72 22 103/67 99 02/15/22 15:41 77 13 106/67 99 02/15/22 15:30 74 10 L 106/67 100 02/15/22 15:21 74 14 98/55 100 02/15/22 15:11 70 11 L 92/53 99 02/15/22 15:00 71 15 92/53 99 02/15/22 14:51 70 11 L 98/65 99 02/15/22 14:41 72 14 100/64 98 02/15/22 14:30 69 28 H 100/64 02/15/22 14:21 68 14 93/49 96 02/15/22 14:11 73 12 85/55 99 02/15/22 14:00 70 25 H 85/55 96 02/15/22 13:51 71 19 90/54 98 02/15/22 13:41 65 25 H 82/45 97 02/15/22 13:30 69 35 H 82/45 97 02/15/22 13:21 76 13 92/62 97 02/15/22 13:11 73 26 H 100/60 98 02/15/22 13:00 72 32 H 100/60 96 02/15/22 12:51 78 20 93/58 96 - Physical Examination General: No Apparent Distress HEENT: Positive: PERRL, EOMI Neck: Positive: neck supple Cardiac: Positive: Reg Rate and Rhythm Lungs: Positive: Decreased Breath Sounds Neuro: Positive: Grossly Intact Abdomen: Positive: Soft Skin: Positive: Clear Incision: Cardiac Cath Site (right radial 2+, hand warm 5/5 strength) Extremities: Absent: edema - Labs and Meds CBC 02/16/22 Range/Units 04:13 WBC 8.9 (4.5-11.0) K/mm3 RBC 4.19 (3.65-5.03) M/mm3 Hgb 11.9 (10.1-14.3) gm/dl Hct 36.4 (30.3-42.9) % Plt Count 283 (140-440) K/mm3 Comprehensive Metabolic Panel 02/16/22 Range/Units 04:13 Sodium 138 (137-145) mmol/L Potassium 3.7 (3.6-5.0) mmol/L Chloride 102.7 (98-107) mmol/L Carbon Dioxide 25 (22-30) mmol/L BUN 5 L (7-17) mg/dL Creatinine 0.5 L (0.6-1.2) mg/dL Glucose 89 (65-100) mg/dL Calcium 8.3 L (8.4-10.2) mg/dL - Imaging and Cardiology Cardiac cath: report reviewed (eft heart cath revealed RCA small nondominant. Mild to moderate LV dysfunction with anterior apical inferior apical hypokinesis with left main large and patent LAD is a large Vessel patent sluggish flow diagonal 1 diagonal 2 patent circumflex is a dominant vessel proximal to mid patent OM1 OM 2 pat) - Allied health notes Allied health notes reviewed: nursing
--- NOTE | 2022-02-16 13:21 | Discharge Summary ---
Providers - Providers Date of Admission: 02/13/22 22:53 Date of discharge: 02/16/22 Attending physician: GEOFF DISLA MD 02/13/22 Consult to Cardiac Rehabilitation [CONS] Routine Reason For Exam: Phase I Consult to Cardiac Rehabilitation [CONS] Routine Reason For Exam: post pci 02/13/22 22:10 Consult to Cardiology [CONS] Routine Consulting Provider: RODRIGUE DUARTE Reason For Exam: chest pain - ACS s/p cardiac cath Consult to Dietitian/Nutrition [CONS] Routine Physician Instructions: Reason For Exam: Reason for Consult: Diet education Consult to Dietitian/Nutrition [CONS] Routine Physician Instructions: Reason For Exam: Reason for Consult: Diet education Consult to Physician [CONS] Routine Comment: Consulting Provider: CHERYL MOREL Physician Instructions: Reason For Exam: chest pain - s/p cardiac cath 02/14/22 08:14 Consult to Physician [CONS] Routine Comment: Consulting Provider: DAWSON MANNING Physician Instructions: Reason For Exam: CCM- STEMI Primary care physician: RAGHAVENDRA BERRY Hospitalization Condition: Stable Hospital course: This is a 56-year-old female who is transitioning to male with atrial fibrillation, DM, asthma, bipolar disorder who presents to the emergency department on 02/13 with complaints of chest pain which started 40 minutes prior to arrival to the emergency department described as tightness which was substernal, 10/10 in severity, and shortness of breath. On arrival to the emergency department patient initial ECG was not concerning for STEMI however the patient continued to have chest pain and ECG was repeated which had a concerning changes in the inferior leads and elevated troponin. Cardiology consulted in the emergency department and patient was taken to the [facility] which showed a patent LAD, nondominant RCA, patent left circumflex and occluded left PDA, multiple vessels were noted to have sluggish flow and left PDA angioplasty was attempted but stent was not placed due to small vessel size. Patient was admitted to the hospitalist service with consults to cardiology, CCM to the ICU. On 10/17 patient was still complaining of chest pressure and he remained on nitro as glycerin, aggrestat and heparin drip and cardiology deemed ACS event most likely embolic in nature and plan was to medically manage the patient and with the possibility repeat cardiac catheterization. Nitroglycerin and Aggrastat drips were completed and patient remained on medical management. Yesterday patient was stable to be transferred to the floor however remained in the ICU. Today cardiology has cleared the patient to be discharged and will need to follow-up with cardiology within 1 week. Cardiology states that the pattern of left ventricular injury and absence of fixed coronary stenosis suggests acute myocardial injury due to Takotsubo syndrome. Patient will be treated with dual oral antiplatelet therapy, afterload agents, beta-blockers and long-acting nitrates. They have recommended that he discontinue flecainide, and instead will be on metoprolol 50 twice daily for paroxysmal atrial fibrillation. He will be discharged on dual oral antiplatelet therapy with aspirin and Plavix. Patient will need to follow-up with cardiology within 1 week of discharge. Assessment and Plan Neuro: h/o bipolar -Reorientation as needed -Maintain sleep-wake cycle -As needed analgesia -Per patient she was taken off of Seroquel and Wellbutrin by psychiatrist -Does not take any medication at this time -Recommend outpatient follow-up for maintenance medications for bipolar -Per patient currently undergoing gender transition with weekly testerone injections (every Tuesday) Cardiac: STEMI, Acute Coronary Syndrome, Takotsubo syndrome, h/o Atrial Fibrillation on Flecainide for rate controlled -Cardiology and CCM consulted, appreciate recommendations -02/13 s/p emergent LHC- revealed RCA small nondominant. Mild to moderate LV dysfunction with anterior apical inferior apical hypokinesis with left main large and patent LAD is a large Vessel patent sluggish flow diagonal 1 diagonal 2 patent circumflex is a dominant vessel proximal to mid patent OM1 OM 2 patent L PDA is a small vessel but occluded. Multiple attempts for balloon angioplasty was made but is too small for stenting and only was able to restore KANDICE I flow despite multiple attempts. -s/p Aggrastat and nitroglycerin drip -s/p Heparin gtts -Aspirin, Plavix, metoprolol, Imdur, lisinopril, statin -As needed Nitrostat -Blood pressure monitor per protocol -Lipid panel noted Respiratory: h/o asthma -Follow-up with pulmonology -Continue home antiasthmatic medications GI: Obesity - lifestyle and dietary modifications encouraged : Hypophosphatemia -Follow-up with primary care physician Endo: h/o DM -Glucose monitoring per primary care physician instructions -Continue home antidiabetic regimen -Continue cardiac consistent carbohydrate diet Disposition: HOME / SELF CARE / HOMELESS Final Discharge Diagnosis (Prints w/discharge instructions): STEMI, Acute Coronary Syndrome, Takotsubo syndrome, Obesity. history of bipolar, Atrial Fibrillation on Flecainide for rate controlled, DM, bipolar, asthma Time spent for discharge: 60 Core Measure Documentation - Palliative Care Palliative Care/ Comfort Measures: Not Applicable - Core Measures Any of the following diagnoses?: heart failure - Heart Failure Discharge Requirements CHRISTINA/ARB for LVSD if EF <40%: Yes Beta lj at discharge: Yes Exam - Constitutional Vitals: Temp Pulse Resp BP Pulse Ox 98.9 F 71 15 99/61 98 02/16/22 10:34 02/16/22 12:01 02/16/22 12:01 02/16/22 12:01 02/16/22 10:00 General appearance: Present: no acute distress - EENT Eyes: Present: PERRL, EOM intact ENT: hearing intact, clear oral mucosa, dentition normal - Neck Neck: Present: normal ROM - Respiratory Respiratory effort: normal Respiratory: bilateral: CTA - Cardiovascular Rhythm: regular Heart Sounds: Present: S1 & S2. Absent: systolic murmur, diastolic murmur - Extremities Extremities: no ischemia, pulses intact, pulses symmetrical, No edema, normal temperature, normal color, Full ROM Peripheral Pulses: within normal limits - Abdominal General gastrointestinal: Present: soft, non-tender, non-distended, normal bowel sounds - Integumentary Integumentary: Present: clear, warm, dry - Musculoskeletal Musculoskeletal: strength equal bilaterally - Psychiatric Psychiatric: appropriate mood/affect, cooperative - Neurologic Neurologic: CNII-XII intact, no focal deficits, moves all extremities - Allied Health Allied health notes reviewed: nursing, RT, social work Plan Activity: advance as tolerated Diet: low fat, low cholesterol, low salt, diabetic Special Instructions: record daily BP diary, record blood sugar diary Additional Instructions: Cardiology has instructed you to discontinue flecainide, and instead will be on metoprolol 50 twice daily for paroxysmal atrial fibrillation. You will be discharged on dual oral antiplatelet therapy with aspirin and Plavix. You will need to follow-up with cardiology within 1 week of discharge. You will need to follow-up with the primary care physician within 1 to 2 weeks of discharge. Present to nearest emergency department or contact your primary care physician if you have worsening symptoms. Follow up with: RAGHAVENDRA BERRY MD [Primary Care Provider] - 3-5 Days CHERYL MOREL MD [Staff Physician] - 7 Days Prescriptions: AtorvaSTATin [Lipitor] 80 mg PO QHS #60 tablet Aspirin [Aspirin BABY CHEW TAB] 81 mg PO QDAY #30 tab.chew ISOSORBIDE MONOnitrate [Imdur ER] 30 mg PO QDAY #30 tablet Metoprolol [Lopressor TAB] 50 mg PO BID@0800,1700 #60 tablet Nitroglycerin [Nitrostat] 0.4 mg SL .Q5MIN PRN #7 tablet PRN Reason: Chest Pain Pot Phosphate/Na Phosphate [Phos-Nak] 1 each PO QDAY #3 Clopidogrel [Plavix] 75 mg PO QDAY #30 tablet traMADoL [Ultram 50 MG tab] 50 mg PO Q6H PRN #5 tablet PRN Reason: Pain, Moderate (4-6) lisinopriL [Zestril TAB] 5 mg PO QDAY #30 tablet
[2022-02-16 14:42] VITALS: BP 103/64
== END 2022-02-16 15:59 | disposition home or self-care (01) | DRG 250 ==
LOC: ED 18:50 → CC1 22:53
PROVIDERS: ADMIT Internal Medicine Geriatric Medicine; ATTEND Internal Medicine
PROC: 02703ZZ Dilation of Coronary Artery, One Artery, Percutaneous Approach (ICD-10-PCS; principal; 2022-02-13)
PROC: 4A023N7 Measurement of Cardiac Sampling and Pressure, Left Heart, Percutaneous Approach (ICD-10-PCS; 2022-02-13)
PROC: B2111ZZ Fluoroscopy of Multiple Coronary Arteries using Low Osmolar Contrast (ICD-10-PCS; 2022-02-13)
PROC: B2151ZZ Fluoroscopy of Left Heart using Low Osmolar Contrast (ICD-10-PCS; 2022-02-13)
DX: I21.3 ST elevation (STEMI) myocardial infarction of unspecified site (principal); I50.31 Acute diastolic (congestive) heart failure; E87.1 Hypo-osmolality and hyponatremia; E66.2 Morbid (severe) obesity with alveolar hypoventilation; I51.81 Takotsubo syndrome; E87.2 Acidosis; F31.9 Bipolar disorder, unspecified; I20.0 Unstable angina; E86.0 Dehydration; J45.909 Unspecified asthma, uncomplicated; E83.39 Other disorders of phosphorus metabolism; I48.0 Paroxysmal atrial fibrillation; E11.9 Type 2 diabetes mellitus without complications; Z79.899 Other long term (current) drug therapy; Z88.6 Allergy status to analgesic agent; Z91.14 Patient's other noncompliance with medication regimen; Z68.37 Body mass index [BMI] 37.0-37.9, adult; Z87.891 Personal history of nicotine dependence; Z71.3 Dietary counseling and surveillance
CPT/HCPCS: 36415; 71045; 80048; 80061; 82550; 82553; 82962; 83735; 84100; 84484; 85014; 85018; 85025; 85027; 85520; 85610; 92920; 93005; 93306; 93458; G0378; J1815; J3490; J7510; Q9967; C1725; C1887; C1894; C8929; J1644; J2250; J2405; J3010; J3246; J7030; J7040

== ENCOUNTER 2022-03-15 16:29 | Emergency (ER) | payer MEDICARE | END 2022-03-16 01:43 | disposition left against medical advice (07) | LOC: ED 16:29 | DX: Z00.00 Encounter for general adult medical examination without abnormal findings (principal); Z53.21 Procedure and treatment not carried out due to patient leaving prior to being seen by health care provider ==

== ENCOUNTER 2022-03-16 12:55 | Emergency (ER) | payer MEDICARE ==
[2022-03-16 13:15] VITALS: BP 124/72
--- NOTE | 2022-03-16 13:17 | Emergency Department Report ---
Stated Complaint: IV BROKE OFF IN RIGHT WRIST - HPI History of Present Illness: pt reports IV cath broke up in her right wrist when she was d/c from hospital february 16 MSE screening note: Focused history and physical exam performed. Due to findings the following was ordered: xray of right wrist for FB patient to be seen in back once room is open for patient to be seen by provider. pt in NAD MSE done ED Disposition for MSE Condition: Stable
--- NOTE | 2022-03-16 14:05 | XRay Report ---
RIGHT WRIST 3 VIEWS INDICATION: FB in wrist. COMPARISON: None. IMPRESSION: No osseous abnormality or significant joint pathology is demonstrated. On the oblique i mages suggestion of a punctate radiodensity in the anatomical snuffbox region which could represent a foreign body. This may also represent a soft tissue calcification. The soft tissues are otherwise un remarkable. Please correlate with the patient and the images. Signer Name: Ronaldo Mack Jr, MD Signed: 03/16/2022 2:01 PM Workstation Name: [id number]
--- NOTE | 2022-03-16 15:43 | Emergency Department Report ---
ED Extremity Problem HPI - General Chief complaint: Medical Clearance Stated complaint: IV BROKE OFF IN RIGHT WRIST Time Seen by Provider: 03/16/22 15:35 Source: patient Mode of arrival: Ambulatory Limitations: No Limitations - History of Present Illness Initial comments: 56-year-old black female presents to the emergency department for evaluation of possible foreign body to right wrist area. She states that about 3 weeks ago she was admitted to the hospital and had an IV in her right wrist area. She states that she thinks that when that the IV was pulled out, a piece of it broke off inside of her because since. She is what feels like a foreign body to her right wrist area along with some tenderness. She denies fever swelling, and erythema. MD Complaint: extremity pain -: Gradual, week(s) (3-4) Location: right, upper extremity History of Same: No (Risks) -: No myalgia, No arthralgia, No fever Radiation: none Severity scale (0 -10): 3 Quality: aching Worsens with: palpation Associated Symptoms: denies: chest pain, shortness of breath, fever - Related Data Home Medications Medication Instructions Recorded Confirmed Last Taken oxyCODONE /ACETAMINOPHEN 5 mg PO 05/12/19 05/06/19 08:00 Previous Rx's Medication Instructions Recorded Last Taken Type Acetaminophen [Acetaminophen TAB] 650 mg PO Q6H PRN tablet 02/16/22 Unknown Rx Aspirin [Aspirin BABY CHEW TAB] 81 mg PO QDAY #30 tab.chew 02/16/22 Unknown Rx AtorvaSTATin [Lipitor] 80 mg PO QHS #60 tablet 02/16/22 Unknown Rx Clopidogrel [Plavix] 75 mg PO QDAY #30 tablet 02/16/22 Unknown Rx Docusate Sodium [Colace CAP] 100 mg PO BID capsule 02/16/22 Unknown Rx ISOSORBIDE MONOnitrate [Imdur ER] 30 mg PO QDAY #30 tablet 02/16/22 Unknown Rx Metoprolol [Lopressor TAB] 50 mg PO BID@0800,1700 #60 tablet 02/16/22 Unknown Rx Nitroglycerin [Nitrostat] 0.4 mg SL .Q5MIN PRN #7 tablet 02/16/22 Unknown Rx Pot Phosphate/Na Phosphate 1 each PO QDAY #3 02/16/22 Unknown Rx [Phos-Nak] lisinopriL [Zestril TAB] 5 mg PO QDAY #30 tablet 02/16/22 Unknown Rx traMADoL [Ultram 50 MG tab] 50 mg PO Q6H PRN #5 tablet 02/16/22 Unknown Rx Allergies Allergy/AdvReac Type Severity Reaction Status Date / Time morphine Allergy Hives Verified 02/13/22 19:05 ibuprofen [From Motrin] AdvReac Anaphylaxis Verified 03/16/22 13:16 ED Review of Systems ROS: Stated complaint: IV BROKE OFF IN RIGHT WRIST Other details as noted in HPI Comment: All other systems reviewed and negative Constitutional: denies: chills, fever, malaise, weakness Respiratory: denies: shortness of breath Cardiovascular: denies: chest pain, palpitations Gastrointestinal: denies: abdominal pain, nausea, vomiting Neurological: denies: headache ED Past Medical Hx - Past Medical History Hx Heart Attack/AMI: Yes (2003) Hx Congestive Heart Failure: Yes Hx Diabetes: Yes Hx Arthritis: Yes (pain right knees) Hx Psychiatric Treatment: Yes (bipolar disorder) Hx Asthma: Yes Hx COPD: No Additional medical history: Atrial fibrillation - Surgical History Additional Surgical History: shoulder - Social History Smoking Status: Former Smoker - Medications Home Medications: Home Medications Medication Instructions Recorded Confirmed Last Taken Type oxyCODONE /ACETAMINOPHEN 5 mg PO 05/12/19 05/06/19 08:00 History Acetaminophen [Acetaminophen TAB] 650 mg PO Q6H PRN tablet 02/16/22 Unknown Rx Aspirin [Aspirin BABY CHEW TAB] 81 mg PO QDAY #30 tab.chew 02/16/22 Unknown Rx AtorvaSTATin [Lipitor] 80 mg PO QHS #60 tablet 02/16/22 Unknown Rx Clopidogrel [Plavix] 75 mg PO QDAY #30 tablet 02/16/22 Unknown Rx Docusate Sodium [Colace CAP] 100 mg PO BID capsule 02/16/22 Unknown Rx ISOSORBIDE MONOnitrate [Imdur ER] 30 mg PO QDAY #30 tablet 02/16/22 Unknown Rx Metoprolol [Lopressor TAB] 50 mg PO BID@0800,1700 #60 tablet 02/16/22 Unknown Rx Nitroglycerin [Nitrostat] 0.4 mg SL .Q5MIN PRN #7 tablet 02/16/22 Unknown Rx Pot Phosphate/Na Phosphate 1 each PO QDAY #3 02/16/22 Unknown Rx [Phos-Nak] lisinopriL [Zestril TAB] 5 mg PO QDAY #30 tablet 02/16/22 Unknown Rx traMADoL [Ultram 50 MG tab] 50 mg PO Q6H PRN #5 tablet 02/16/22 Unknown Rx ED Physical Exam - General Limitations: No Limitations General appearance: alert, in no apparent distress - Head Head exam: Present: atraumatic, normocephalic - Eye Eye exam: Present: normal appearance. Absent: conjunctival injection, danie orbital swelling, periorbital tenderness - Neck Neck exam: Present: normal inspection. Absent: lymphadenopathy - Respiratory Respiratory exam: Absent: respiratory distress - Cardiovascular Cardiovascular Exam: Present: tachycardia - GI/Abdominal GI/Abdominal exam: Absent: distended - Expanded Upper Extremity Exam Right Forearm Wrist exam: Present: full ROM, tenderness. Absent: swelling, abrasion, laceration, ecchymosis, deformity, crepidus, dislocation, erythema, tenderness over anatomical snuff box, pain with axial thumb loading Hand L/R Back: 1 - Area noted to have some firmness and tenderness when touched. No erythema or edema noted. Patient states this is the area where her IV was. Vascular: Present: normal capillary refill, radial pulse. Absent: vascular compromise, Pallo - Back Exam Back exam: Present: normal inspection. Absent: CVA tenderness (R), CVA tenderness (L) - Neurological Exam Neurological exam: Present: alert, oriented X3 - Psychiatric Psychiatric exam: Present: normal affect, normal mood - Skin Skin exam: Present: warm, dry, intact, normal color ED Course Vital Signs 03/16/22 13:13 Temperature 98.2 F Pulse Rate 101 H Respiratory 18 Rate Blood Pressure 124/72 [Left] O2 Sat by Pulse 99 Oximetry ED Medical Decision Making - Radiology Data Radiology results: report reviewed, image reviewed Right wrist x-ray: IMPRESSION: No osseous abnormality or significant joint pathology is demonstrated. On the oblique images suggestion of a punctate radiodensity in the anatomical snuffbox region w hich could represent a foreign body. This may also represent a soft tissue calcification. The soft t issues are otherwise unremarkable. Please correlate with the patient and the images. - Medical Decision Making 56-year-old black female presents to the emergency department for evaluation of possible foreign body to right wrist area. She states that about 3 weeks ago she was admitted to the hospital and had an IV in her right wrist area. She states that she thinks that when that the IV was pulled out, a piece of it broke off inside of her because since. She is what feels like a foreign body to her right wrist area along with some tenderness. She denies fever swelling, and erythema. Right wrist x-ray did not show any foreign body to the area where patient complains of pain and firmness. No distinctive foreign body noted on exam. No signs of infection noted. Patient advised to follow-up with her primary care provider for further evaluation and management and possibly more advanced imaging. She is advised to return to the emergency department as needed. She verbalizes understanding of and agreement with plan of care. Critical care attestation.: If time is entered above; I have spent that time in minutes in the direct care of this critically ill patient, excluding procedure time. ED Disposition Clinical Impression: Right wrist pain Disposition: 01 HOME / SELF CARE / HOMELESS Is pt being admited?: No Does the pt Need Aspirin: No Condition: Stable Instructions: How to Use Cold Therapy, [id number], Musculoskeletal Pain Additional Instructions: Follow-up with primary care provider for further evaluation. Return to the emergency department as needed. Referrals: JULIA MCCURDY MD [Primary Care Provider] - 3-5 Days SUSAN MARINELLI DO [Staff Physician] - 3-5 Days Time of Disposition: 15:42
== END 2022-03-16 16:27 | disposition home or self-care (01) ==
LOC: ED 12:55
DX: M25.531 Pain in right wrist (principal)
CPT/HCPCS: 99283

== ENCOUNTER 2022-04-21 12:25 | Inpatient (IN) | payer MEDICARE ==
[2022-04-21] MEDS ORDERED: IPRATROPIUM 0.02% NEBU 2.5 ML IH ONE (13:35)
--- NOTE | 2022-04-21 14:05 | XRay Report ---
CHEST 1 VIEW 04/21/2022 1:45 PM INDICATION / CLINICAL INFORMATION: chest pain, palpitations. COMPARISON: 02/14/2022 FINDINGS: SUPPORT DEVICES: None. HEART / MEDIASTINUM: Stable borderline cardiomegaly. LUNGS / PLEURA: No significant pulmonary or pleural abnormality. No pneumothorax. ADDITIONAL FINDINGS: No significant additional findings. IMPRESSION: 1. No acute findings. Signer Name: Domo Bazzi MD Signed: 04/21/2022 2:01 PM Workstation Name: [id number]
[2022-04-21] MEDS ORDERED: LEVALBUTEROL 0.63 MG/3 ML NEBU IH ONE (14:08)
--- NOTE | 2022-04-21 14:15 | Emergency Department Report ---
HPI - General Chief Complaint: Arrhythmia/Palpitations Time Seen by Provider: 04/21/22 13:21 - HPI HPI: Room 25 The patient is a 56-year-old female present with a chief complaint of shortness of breath and palpitations. The patient states she has a history of atrial fibrillation and is on Plavix and Eliquis. Patient states she had an elective cardioversion performed 04/01/2022 and was only successful for 24 hours before she reverted back to A. fib. The patient states she saw her physician yesterday who informed her that they were planning on admitting her to the hospital for cardiac catheterization, chemical conversion and possible ablation. The patient states his symptoms worsened yesterday with the palpitations and shortness of breath in addition to intermittent left-sided chest pain described as a vague discomfort. This prompted the patient to come to the emergency department ED Past Medical Hx - Past Medical History Hx Heart Attack/AMI: Yes (2003) Hx Congestive Heart Failure: Yes Hx Diabetes: Yes Hx Arthritis: Yes (pain right knees) Hx Psychiatric Treatment: Yes (bipolar disorder) Hx Asthma: Yes Additional medical history: Atrial fibrillation - Surgical History Additional Surgical History: shoulder - Family History Family history: no significant - Social History Smoking Status: Former Smoker (None x24 years) Substance Use Type: None (Denies illicit drug use) - Medications Home Medications: Home Medications Medication Instructions Recorded Confirmed Last Taken Type oxyCODONE /ACETAMINOPHEN 5 mg PO 05/12/19 05/06/19 08:00 History Acetaminophen [Acetaminophen TAB] 650 mg PO Q6H PRN tablet 02/16/22 Unknown Rx Aspirin [Aspirin BABY CHEW TAB] 81 mg PO QDAY #30 tab.chew 02/16/22 Unknown Rx AtorvaSTATin [Lipitor] 80 mg PO QHS #60 tablet 02/16/22 Unknown Rx Clopidogrel [Plavix] 75 mg PO QDAY #30 tablet 02/16/22 Unknown Rx Docusate Sodium [Colace CAP] 100 mg PO BID capsule 02/16/22 Unknown Rx ISOSORBIDE MONOnitrate [Imdur ER] 30 mg PO QDAY #30 tablet 02/16/22 Unknown Rx Metoprolol [Lopressor TAB] 50 mg PO BID@0800,1700 #60 tablet 02/16/22 Unknown Rx Nitroglycerin [Nitrostat] 0.4 mg SL .Q5MIN PRN #7 tablet 02/16/22 Unknown Rx Pot Phosphate/Na Phosphate 1 each PO QDAY #3 02/16/22 Unknown Rx [Phos-Nak] lisinopriL [Zestril TAB] 5 mg PO QDAY #30 tablet 02/16/22 Unknown Rx traMADoL [Ultram 50 MG tab] 50 mg PO Q6H PRN #5 tablet 02/16/22 Unknown Rx ED Review of Systems ROS: Stated complaint: AFIB Other details as noted in HPI Constitutional: no symptoms reported Eyes: denies: eye pain ENT: denies: throat pain Respiratory: shortness of breath Cardiovascular: chest pain, palpitations Endocrine: no symptoms reported Gastrointestinal: denies: abdominal pain, vomiting Genitourinary: denies: dysuria Musculoskeletal: denies: back pain Neurological: denies: headache Physical Exam - Physical Exam Vital Signs: Vital Signs 04/21/22 12:29 Temperature 94.1 F L Pulse Rate 86 Respiratory 16 Rate Blood Pressure 117/86 [Left] O2 Sat by Pulse 100 Oximetry Physical Exam: GENERAL: The patient is well-developed well-nourished female lying on stretcher not appearing to be in acute distress. [] HEENT: Normocephalic. Atraumatic. Extraocular motions are intact. Patient has moist mucous membranes. NECK: Supple. Trachea midline CHEST/LUNGS: Faint wheezing bilateral. There is no respiratory distress noted. HEART/CARDIOVASCULAR: Irregularly irregular. There is no tachycardia. There is no gallop rub or murmur. ABDOMEN: Abdomen is soft, nontender. Patient has normal bowel sounds. There is no abdominal distention. SKIN: There is no rash. There is no edema. There is no diaphoresis. NEURO: The patient is awake, alert, and oriented. The patient is cooperative. The patient has no focal neurologic deficits. The patient has normal speech. GCS 15 MUSCULOSKELETAL: There is no evidence of acute injury. ED Course Vital Signs 04/21/22 12:29 Temperature 94.1 F L Pulse Rate 86 Respiratory 16 Rate Blood Pressure 117/86 [Left] O2 Sat by Pulse 100 Oximetry - Consultations Consultation #1: 04/21/22 15:34 Cardiology paged 04/21/22 15:58 Case discussed with health education director Dr. Giordano- will consult ED Medical Decision Making - Lab Data Result diagrams: 04/21/22 13:49 04/21/22 13:49 Laboratory Tests 04/21/22 04/21/22 04/21/22 13:49 13:49 13:49 WBC 5.8 RBC 4.89 Hgb 13.3 Hct 43.0 H MCV 88 MCH 27 L MCHC 31 RDW 16.6 H Plt Count 225 Lymph % (Auto) 19.3 [place] % (Auto) 7.3 Eos % (Auto) 1.4 Baso % (Auto) 0.8 Lymph # (Auto) 1.1 L [place] # (Auto) 0.4 Eos # (Auto) 0.1 Baso # (Auto) 0.0 Seg Neutrophils % 71.2 H Seg Neutrophils # 4.1 PT 18.5 H INR 1.37 H APTT 34.6 VBG pH Sodium 141 Potassium 5.4 H Chloride 106.6 Carbon Dioxide 27 Anion Gap 13 BUN 8 Creatinine 0.7 Estimated GFR > 60 BUN/Creatinine Ratio 11 Glucose 105 H Calcium 8.9 Total Creatine Kinase 153 H CK-MB (CK-2) 3.1 CK-MB (CK-2) Rel Index 2.0 Troponin T < 0.010 NT-Pro-B Natriuret Pep 1779 H TSH Free T4 04/21/22 04/21/22 13:49 13:49 WBC RBC Hgb Hct MCV MCH MCHC RDW Plt Count Lymph % (Auto) [place] % (Auto) Eos % (Auto) Baso % (Auto) Lymph # (Auto) [place] # (Auto) Eos # (Auto) Baso # (Auto) Seg Neutrophils % Seg Neutrophils # PT INR APTT VBG pH 7.285 L Sodium Potassium Chloride Carbon Dioxide Anion Gap BUN Creatinine Estimated GFR BUN/Creatinine Ratio Glucose Calcium Total Creatine Kinase CK-MB (CK-2) CK-MB (CK-2) Rel Index Troponin T NT-Pro-B Natriuret Pep TSH 1.150 Free T4 1.20 - EKG Data -: EKG Interpreted by Me Rate: normal - EKG Data When compared to previous EKG there are: previous EKG unavailable Interpretation: other (Atrial fibrillation at 90 bpm. PVC) - Radiology Data Radiology results: report reviewed (Chest x-ray), image reviewed (Chest x-ray) interpreted by me: Chest x-ray-no definite focal infiltrates, no pneumothorax [facility] [address] [place] [address] XRay Report Signed Patient: LIBRADO ENRIQUEZ MR#: [id number] 22 : 1965 Acct:[id number] Age/Sex: 56 / F ADM Date: 04/21/22 Loc: ED Attending Dr: Ordering Physician: SORAYA LONG MD Date of Service: 04/21/22 Procedure(s): XR chest 1V ap Accession Number(s): [id number] cc: SORAYA LONG MD Fluoro Time In Minutes: CHEST 1 VIEW 04/21/2022 1:45 PM INDICATION / CLINICAL INFORMATION: chest pain, palpitations. COMPARISON: 02/14/2022 FINDINGS: SUPPORT DEVICES: None. HEART / MEDIASTINUM: Stable borderline cardiomegaly. LUNGS / PLEURA: No significant pulmonary or pleural abnormality. No pneumothorax. ADDITIONAL FINDINGS: No significant additional findings. IMPRESSION: 1. No acute findings. Signer Name: Domo Bazzi MD Signed: 04/21/2022 2:01 PM Workstation Name: [id number] Transcribed By: NORA Dictated By: Domo Bazzi MD Electronically Authenticated By: Domo Bazzi MD Signed Date/Time: 04/21/22 140 DD/ 140 TD/TT: - Differential Diagnosis ACS, A. fib with RVR, CHF Critical care attestation.: If time is entered above; I have spent that time in minutes in the direct care of this critically ill patient, excluding procedure time. ED Disposition Clinical Impression: Chest pain, Atrial fibrillation Disposition: ADMITTED INPATIENT Is pt being admited?: Yes Does the pt Need Aspirin: No Condition: Stable Instructions: Nonspecific Chest Pain, Adult Time of Disposition: 15:59 (Care transferred to hospitalist) Heart Score - HEART Score History: Slightly suspicious EKG: Non-specific Age: 45-65 Risk factors: 1-2 risk factors Troponin: < normal limit HEART Score: 3 - EKG Read Time Time EKG Completed: 13:35 EKG Read Time: 13:42
[2022-04-21 14:58] LABS: Basophils % (Auto) 0.8 % (0.0-1.8); Eosinophils # (Auto) 0.1 K/mm3 (0.0-0.4); Eosinophils % (Auto) 1.4 % (0.0-4.3); INR 1.37 (0.87-1.13); Lymphocytes # (Auto) 1.1 K/mm3 (1.2-5.4); Lymphocytes % (Auto) 19.3 % (13.4-35.0); Mean Corpuscular HGB Conc 31 % (30-34); Mean Corpuscular Volume 88 fl (79-97); Monocytes # (Auto) 0.4 K/mm3 (0.0-0.8); Monocytes % (Auto) 7.3 % (0.0-7.3); Partial Thromboplastin Time 34.6 Sec. (24.2-36.6); Platelet Count 225 K/mm3 (140-440); Red Blood Count 4.89 M/mm3 (3.65-5.03); Red Cell Distribution Width 16.6 % (13.2-15.2)
[2022-04-21 14:59] LABS: Hemoglobin 13.3 gm/dl (10.1-14.3)
[2022-04-21 15:08] LABS: Blood Urea Nitrogen 8 mg/dL (7-17); Calcium 8.9 mg/dL (8.4-10.2); Creatine Kinase MB 3.1 ng/mL (0.0-4.0); Hemolysis Index 5
[2022-04-21 15:10] LABS: BUN/Creatinine Ratio 11
[2022-04-21 15:13] LABS: Free T4 (Free Thyroxine) 1.2 ng/dL (0.76-1.46)
--- NOTE | 2022-04-21 16:04 | History and Physical Report ---
History of Present Illness Chief complaint: My heart is beating fast and my chest hurts History of present illness: 56 YO Female with CO, Diastolic CHF, Atrial Fib on therapeutic anticoagulation, DM, OA, Bipolar Disorder, Mild Intermittent Asthma presents to ED for evaluation. Patient reports "my heart is beating fast and my chest hurts". Patient states that over the past 2 days she has experienced chest palpitations with concomitant pain in her chest. Patient underwent elective cardioversion on 04/01/2022 with subsequent return of atrial fibrillation with 24 hours. Patient was seen and evaluated by her physician on 04/20/2022 and was found to have persistent atrial fibrillation. Patient subsequently developed worsening pain and palpitations overnight. EMS was notified and upon arrival the patient was found to be in distress and subsequent transported to [facility] for the care and evaluation of the aforementioned symptoms. The patient was seen and evaluated in respiratory. All lab and imaging studies reviewed. Patient was found to have angina at rest, as well as atrial fibrillation with rapid ventricular response complicated by hypotension with systolic blood pressure 90s. Cardiology team consulted. Patient admitted to telemetry due to increased risk of worsening symptoms after medical stabilization. Patient denies fever, chills, productive cough, skin rash, recent contact, known exposure to COVID-19. Prior admission on 02/13/2022 reviewed. All medication listed at time of admission has been reconciled. Advanced care planning conducted in ED. Past History Past Medical History: acute CO, atrial fib, arthritis, diabetes, heart failure, other (See HPI) Past Surgical History: Other (Shoulder surgery) Social history: . denies: smoking, alcohol abuse, prescription drug abuse Family history: diabetes, hypertension Medications and Allergies Allergies Allergy/AdvReac Type Severity Reaction Status Date / Time morphine Allergy Hives Verified 04/21/22 12:32 ibuprofen [From Motrin] AdvReac Anaphylaxis Verified 04/21/22 12:32 Home Medications Medication Instructions Recorded Confirmed Last Taken Type oxyCODONE /ACETAMINOPHEN 5 mg PO 05/12/19 05/06/19 08:00 History Acetaminophen [Acetaminophen TAB] 650 mg PO Q6H PRN tablet 02/16/22 Unknown Rx Aspirin [Aspirin BABY CHEW TAB] 81 mg PO QDAY #30 tab.chew 02/16/22 Unknown Rx AtorvaSTATin [Lipitor] 80 mg PO QHS #60 tablet 02/16/22 Unknown Rx Clopidogrel [Plavix] 75 mg PO QDAY #30 tablet 02/16/22 Unknown Rx Docusate Sodium [Colace CAP] 100 mg PO BID capsule 02/16/22 Unknown Rx ISOSORBIDE MONOnitrate [Imdur ER] 30 mg PO QDAY #30 tablet 02/16/22 Unknown Rx Metoprolol [Lopressor TAB] 50 mg PO BID@0800,1700 #60 tablet 02/16/22 Unknown Rx Nitroglycerin [Nitrostat] 0.4 mg SL .Q5MIN PRN #7 tablet 02/16/22 Unknown Rx Pot Phosphate/Na Phosphate 1 each PO QDAY #3 02/16/22 Unknown Rx [Phos-Nak] lisinopriL [Zestril TAB] 5 mg PO QDAY #30 tablet 02/16/22 Unknown Rx traMADoL [Ultram 50 MG tab] 50 mg PO Q6H PRN #5 tablet 02/16/22 Unknown Rx Review of Systems Constitutional: no weight loss, no weight gain, no fever, no chills Ears, nose, mouth and throat: no ear pain, no ear discharge, no nose pain, no nasal discharge, no sinus pressure Cardiovascular: chest pain, palpitations, shortness of breath Respiratory: no cough, no cough with sputum, no excessive sputum, no shortness of breath Gastrointestinal: no abdominal pain, no nausea, no vomiting, no change in bowel habits Genitourinary Female: no pelvic pain, no flank pain, no dysuria, no urinary frequency, no urgency Rectal: no pain, no incontinence, no bleeding Musculoskeletal: no neck stiffness, no neck pain, no arm numbness/tingling, no low back pain, no shooting leg pain Integumentary: no rash, no pruritis, no redness, no sores, no wounds Neurological: no head injury, no paralysis, no weakness, no parathesias, no tingling, no seizures, no syncope, no tremors Psychiatric: no anxiety, no change in sleep habits, no insomnia, no hypersomnia, no change in appetite, no suicidal ideation, no disorientation Endocrine: no cold intolerance, no polyphagia, no polydipsia, no nocturia, no excessive sweating Hematologic/Lymphatic: no easy bruising, no lymphedema Allergic/Immunologic: no anaphylaxis Exam - Constitutional Vitals: Temp Pulse Resp BP Pulse Ox 94.1 F L 109 H 16 96/81 100 08/17/22 12:29 04/21/22 14:49 04/21/22 14:49 04/21/22 14:49 04/21/22 14:49 General appearance: Present: mild distress - EENT Eyes: Present: PERRL ENT: hearing intact, clear oral mucosa - Neck Neck: Present: supple, normal ROM - Respiratory Respiratory effort: normal Respiratory: bilateral: CTA - Cardiovascular Rhythm: irregularly irregular Heart Sounds: Present: S1 & S2. Absent: rub, click - Extremities Extremities: pulses symmetrical, No edema Peripheral Pulses: within normal limits - Abdominal General gastrointestinal: Present: soft, non-tender, non-distended, normal bowel sounds Female genitourinary: Present: normal - Integumentary Integumentary: Present: clear, warm, dry - Musculoskeletal Musculoskeletal: gait normal, strength equal bilaterally - Psychiatric Psychiatric: appropriate mood/affect, intact judgment & insight - Neurologic Neurologic: CNII-XII intact, moves all extremities HEART Score - HEART Score EKG: Non-specific Age: 45-65 Risk factors: 1-2 risk factors Troponin: Troponin T < 0.010 ng/mL (0.00-0.029) 04/21/22 13:49 Troponin: < normal limit Results - Labs CBC & Chem 7: 04/21/22 13:49 04/21/22 13:49 Labs: Abnormal lab results 04/21/22 04/21/22 04/21/22 Range/Units 13:49 13:49 13:49 Hct 43.0 H (30.3-42.9) % MCH 27 L (28-32) pg RDW 16.6 H (13.2-15.2) % Lymph # (Auto) 1.1 L (1.2-5.4) K/mm3 Seg Neutrophils % 71.2 H (40.0-70.0) % PT 18.5 H (12.2-14.9) Sec. INR 1.37 H (0.87-1.13) VBG pH (7.320-7.420) Potassium 5.4 H (3.6-5.0) mmol/L Glucose 105 H (65-100) mg/dL Total Creatine Kinase 153 H (30-135) units/L NT-Pro-B Natriuret Pep 1779 H (0-900) pg/mL 04/21/22 Range/Units 13:49 Hct (30.3-42.9) % MCH (28-32) pg RDW (13.2-15.2) % Lymph # (Auto) (1.2-5.4) K/mm3 Seg Neutrophils % (40.0-70.0) % PT (12.2-14.9) Sec. INR (0.87-1.13) VBG pH 7.285 L (7.320-7.420) Potassium (3.6-5.0) mmol/L Glucose (65-100) mg/dL Total Creatine Kinase (30-135) units/L NT-Pro-B Natriuret Pep (0-900) pg/mL Assessment and Plan - Patient Problems (1) Chest pain Current Visit: No Status: Acute Plan to address problem: ACS protocol: Serial cardiac enzymes, EKG, telemetry monitoring, cardiology team consulted in ED, further care and evaluation as per cardiology team, supportive care, (2) Atrial fibrillation Current Visit: Yes Status: Acute Qualifiers: Atrial fibrillation type: unspecified Qualified Code(s): I48.91 - U nspecified atrial fibrillation Plan to address problem: Rate control, continue therapeutic anticoagulation, telemetry monitoring, further care and evaluation as per cardiology team. (3) Diastolic CHF Current Visit: No Status: Acute Qualifiers: Heart failure chronicity: acute on chronic Qualified Code(s): I50.33 - Acute on chronic diastolic (congestive) heart failure Plan to address problem: Strict I's/O, monitor urine output every shift, daily weight, afterload reduction, blood pressure control, supplemental oxygen, pulse oximetry. (4) Osteoarthritis Current Visit: Yes Status: Acute Plan to address problem: Pain control, supportive care. (5) Bipolar disorder Current Visit: No Status: Acute Qualifiers: Current episode severity: unspecified Plan to address problem: Continue medical management, no acute exacerbation at this time, continue supportive care, outpatient psychiatry follow-up. (6) Diabetes mellitus Current Visit: No Status: Acute Plan to address problem: Consistent carbohydrate diet, Accu-Chek, insulin protocol, hypoglycemia protocol, (7) DVT prophylaxis Current Visit: No Status: Acute Plan to address problem: SCD to bilateral lower extremities while in bed (8) Advance care planning Current Visit: No Status: Acute Plan to address problem: Disease education data, care plan discussed, diagnoses discussed, prognosis discussed, patient is full code. Patient knowledges understanding and agreement with care plan, +30 minutes. (9) Preventative health care Current Visit: No Status: Acute Plan to address problem: Patient counseled regarding risk factor reduction, outpatient follow-up with primary care physician for all age and risk factor appropriate screening tests. +30 minutes
[2022-04-21] MEDS ORDERED: ACETAMINOPHEN 325 MG TAB PO PRN ×2 (16:38→17:00)
[2022-04-21] MEDS ORDERED: NITROGLYCERIN 0.4 MG TAB SUBL SL PRN (17:00)
[2022-04-21] MEDS ORDERED: ONDANSETRON 4 MG/2 ML INJ IV PRN (17:00)
[2022-04-21] MEDS ORDERED: ALBUTEROL 2.5 MG/3 ML NEBU IH PRN (17:00)
--- NOTE | 2022-04-21 17:08 | Consultation ---
History of Present Illness Consult date: 04/21/22 Consult reason: atrial fibrillation History of present illness: 56 YO Female with KS, Diastolic CHF, Atrial Fib on therapeutic anticoagulation, DM, OA, Bipolar Disorder, Mild Intermittent Asthma presents to ED with chest pain palpitations and shortness of breath. She denies any orthopnea PND or leg swelling. Patient has known A. fib which has been controlled with flecainide until last February when she had an KS and flecainide has to be stopped. Since then she has been having atrial fibrillation for which she was cardioverted cardioverted a fter HANNA at [facility] couple of weeks ago. She was in sinus for a couple of days then was back in atrial fibrillation and was symptomatic. She was seen in the clinic and is planned to have a cardioversion with loading of class III antiarrhythmic at [facility] on Tuesday. In the ER she is in A. fib initially with rates in 90s but went up to 110 -115 after treatment for asthma. Past History Past Medical History: acute KS, atrial fib, arthritis, diabetes, heart failure, other (See HPI) Past Surgical History: Other (Shoulder surgery) Social history: . denies: smoking, alcohol abuse, prescription drug abuse Family history: diabetes, hypertension Medications and Allergies Allergies Allergy/AdvReac Type Severity Reaction Status Date / Time morphine Allergy Hives Verified 04/21/22 12:32 ibuprofen [From Motrin] AdvReac Anaphylaxis Verified 04/21/22 12:32 Home Medications Medication Instructions Recorded Confirmed Last Taken Type oxyCODONE /ACETAMINOPHEN 5 mg PO 05/12/19 05/06/19 08:00 History Acetaminophen [Acetaminophen TAB] 650 mg PO Q6H PRN tablet 02/16/22 Unknown Rx Aspirin [Aspirin BABY CHEW TAB] 81 mg PO QDAY #30 tab.chew 02/16/22 Unknown Rx AtorvaSTATin [Lipitor] 80 mg PO QHS #60 tablet 02/16/22 Unknown Rx Clopidogrel [Plavix] 75 mg PO QDAY #30 tablet 02/16/22 Unknown Rx Docusate Sodium [Colace CAP] 100 mg PO BID capsule 02/16/22 Unknown Rx ISOSORBIDE MONOnitrate [Imdur ER] 30 mg PO QDAY #30 tablet 02/16/22 Unknown Rx Metoprolol [Lopressor TAB] 50 mg PO BID@0800,1700 #60 tablet 02/16/22 Unknown Rx Nitroglycerin [Nitrostat] 0.4 mg SL .Q5MIN PRN #7 tablet 02/16/22 Unknown Rx Pot Phosphate/Na Phosphate 1 each PO QDAY #3 02/16/22 Unknown Rx [Phos-Nak] lisinopriL [Zestril TAB] 5 mg PO QDAY #30 tablet 02/16/22 Unknown Rx traMADoL [Ultram 50 MG tab] 50 mg PO Q6H PRN #5 tablet 02/16/22 Unknown Rx Active Meds: Active Medications Acetaminophen (Acetaminophen 325 Mg Tab) 650 mg PO Q4H PRN PRN Reason: Pain MILD(1-3)/Fever >100.5/[place] Albuterol (Albuterol 2.5 Mg/3 Ml Nebu) 2.5 mg IH Q4HRT PRN PRN Reason: Shortness Of Breath Aspirin (Aspirin 81 Mg Tab Chew) 81 mg PO QDAY [facility] Atorvastatin Calcium (Atorvastatin 40 Mg Tab) 80 mg PO QHS [facility] Clopidogrel Bisulfate (Clopidogrel 75 Mg Tab) 75 mg PO QDAY [facility] Docusate Sodium (Docusate Sodium 100 Mg Cap) 100 mg PO BID [facility] Hydromorphone HCl (Hydromorphone 0.5 Mg/0.5 Ml Inj) 0.5 mg IV Q13H PRN PRN Reason: Pain , Severe (7-10) Isosorbide Mononitrate (Isosorbide Mononitrate Er 30 Mg Tab) 30 mg PO QDAY [facility] Lisinopril (Lisinopril 5 Mg Tab) 5 mg PO QDAY [facility] Metoprolol Tartrate (Metoprolol Tartrate 50 Mg Tab) 50 mg PO BID@0800,1700 [facility] Nitroglycerin (Nitroglycerin 0.4 Mg Tab Subl) 0.4 mg SL .Q5MIN PRN PRN Reason: Chest Pain Ondansetron HCl (Ondansetron 4 Mg/2 Ml Inj) 4 mg IV Q8H PRN PRN Reason: Nausea And Vomiting Oxycodone/Acetaminophen (Oxycodone /Acetaminophen 5-325mg Tab) 1 tab PO Q6H PRN PRN Reason: Pain, Moderate (4-6) Potassium Phos/Sodium Phos (Phos-Nak Powder Packet) 1 each PO QDAY [facility] Sodium Chloride (Sodium Chloride 0.9% 10 Ml Flush Syringe) 10 ml IV BID DEMI Sodium Chloride (Sodium Chloride 0.9% 10 Ml Flush Syringe) 10 ml IV PRN PRN PRN Reason: LINE FLUSH Review of Systems Constitutional: no fever, no chills Cardiovascular: chest pain, palpitations, rapid/irregular heart beat, no syncope, no lightheadedness, no leg edema Respiratory: shortness of breath, no cough Gastrointestinal: no nausea, no vomiting, no diarrhea Genitourinary Female: no Musculoskeletal: no myalgias Integumentary: no rash Neurological: no head injury Psychiatric: no anxiety Endocrine: palpatations Physical Examination Vital Signs Temp Pulse Resp BP Pulse Ox 94.1 F L 86 16 117/86 100 04/21/22 12:29 04/21/22 12:29 04/21/22 12:29 04/21/22 12:29 04/21/22 12:29 General appearance: mild distress HEENT: Positive: PERRL Neck: Positive: neck supple. Negative: JVD/HJR Cardiac: Positive: irregularly irregular, S1/S2. Negative: Audible Murmur Lungs: Positive: Decreased Breath Sounds, Wheezes, Other (Faint crackles.) Neuro: Positive: Grossly Intact Abdomen: Positive: Soft Skin: Negative: Rash Extremities: Absent: edema Results 04/21/22 13:49 04/21/22 13:49 Cardiac Enzymes 04/21/22 Range/Units 13:49 CK-MB (CK-2) 3.1 (0.0-4.0) ng/mL Coagulation 04/21/22 Range/Units 13:49 PT 18.5 H (12.2-14.9) Sec. INR 1.37 H (0.87-1.13) APTT 34.6 (24.2-36.6) Sec. CBC 04/21/22 Range/Units 13:49 WBC 5.8 (4.5-11.0) K/mm3 RBC 4.89 (3.65-5.03) M/mm3 Hgb 13.3 (10.1-14.3) gm/dl Hct 43.0 H (30.3-42.9) % Plt Count 225 (140-440) K/mm3 Lymph # (Auto) 1.1 L (1.2-5.4) K/mm3 [place] # (Auto) 0.4 (0.0-0.8) K/mm3 Eos # (Auto) 0.1 (0.0-0.4) K/mm3 Baso # (Auto) 0.0 (0.0-0.1) K/mm3 Comprehensive Metabolic Panel 04/21/22 Range/Units 13:49 Sodium 141 (137-145) mmol/L Potassium 5.4 H (3.6-5.0) mmol/L Chloride 106.6 (98-107) mmol/L Carbon Dioxide 27 (22-30) mmol/L BUN 8 (7-17) mg/dL Creatinine 0.7 (0.6-1.2) mg/dL Glucose 105 H (65-100) mg/dL Calcium 8.9 (8.4-10.2) mg/dL EKG interpretations - Telemetry EKG Rhythm: Atrial Fibrillation - EKG Supraventricular dysrhythmia: atrial fibrillation Assessment and Plan She appears to be in asthma exacerbation. Treatment per primary team. - Patient Problems (1) Atrial fibrillation Current Visit: No Status: Chronic Qualifiers: Plan to address problem: We will continue the rate control strategy with metoprolol 100 twice daily. In the rates are still more than 100 can load with digoxin. After discharge we will refer her for her scheduled cardioversion and class III antiarrhythmic drug loading. Continue her home dose of apixaban (2) CHF (congestive heart failure) Current Visit: Yes Status: Acute Plan to address problem: She does not appears to be in overt heart failure. Her last ejection fraction is 45 to 50% in the setting of acute KS in February 2022. Her proBNP is slightly elevated and she has faint crackles can give a dose of Lasix if needed. (3) Chest pain Current Visit: No Status: Acute Plan to address problem: Her chest pain is probably related to A. fib and RVR. Given her history we will rule out acute KS with serial troponins. Continue her home medications.
[2022-04-21] MEDS ORDERED: ASPIRIN 81 MG TAB CHEW PO SCH (18:00)
[2022-04-21] MEDS: METOPROLOL TARTRATE 50 MG TAB PO SCH (18:09)
[2022-04-21] MEDS: DOCUSATE SODIUM 100 MG CAP PO SCH (23:40)
[2022-04-21] MEDS: HYDROmorphone 0.5 MG/0.5 ML INJ IV PRN (23:48)
[2022-04-22 07:54] LABS: BUN/Creatinine Ratio 13; Blood Urea Nitrogen 10 mg/dL (7-17); Calcium 9.2 mg/dL (8.4-10.2); Hemolysis Index 0
[2022-04-22] MEDS: CLOPIDOGREL 75 MG TAB PO SCH (09:06)
[2022-04-22] MEDS: LISINOPRIL 5 MG TAB PO SCH (09:07)
[2022-04-22] MEDS: DOCUSATE SODIUM 100 MG CAP PO SCH ×2 (09:07→21:19)
[2022-04-22 09:13] LABS: Hematocrit 41.9 % (30.3-42.9); Hemoglobin 13.3 gm/dl (10.1-14.3); Mean Corpuscular HGB Conc 32 % (30-34); Mean Corpuscular Volume 87 fl (79-97); Platelet Count 227 K/mm3 (140-440); Red Blood Count 4.79 M/mm3 (3.65-5.03); Red Cell Distribution Width 16.7 % (13.2-15.2)
[2022-04-22] MEDS: oxyCODONE /ACETAMINOPHEN 5-325MG TAB PO PRN ×2 (09:17→18:35)
[2022-04-22 09:39] LABS: INR 1.18 (0.87-1.13)
[2022-04-22] MEDS ORDERED: PHOS-NAK POWDER PACKET PO SCH (10:00)
[2022-04-22] MEDS ORDERED: methylPREDNISolone Sod Succinate 125 MG/2 ML INJ IV SCH (10:00)
[2022-04-22 10:27] LABS: Partial Thromboplastin Time 33.9 Sec. (24.2-36.6)
--- NOTE | 2022-04-22 10:34 | Progress Note ---
Assessment and Plan She appears to be in asthma exacerbation. Treatment per primary team. - Patient Problems (1) Atrial fibrillation Current Visit: No Status: Chronic Qualifiers: Plan to address problem: We will continue the rate control strategy with metoprolol 100 twice daily. In the rates are still more than 100 can load with digoxin. After discharge we will refer her for her scheduled cardioversion and class III antiarrhythmic drug loading. Continue her home dose of apixaban. (2) CHF (congestive heart failure) Current Visit: Yes Status: Acute Plan to address problem: She does not appears to be in overt heart failure. Her last ejection fraction is 45 to 50% in the setting of acute ME in February 2022. Her proBNP is slightly elevated. asthma management per primary team. (3) Chest pain Current Visit: No Status: Acute Plan to address problem: Her chest pain is probably related to A. fib and RVR. Given her history we will rule out acute ME with serial troponins. Continue her home medications. Subjective Principal diagnosis: Afib Interval history: Patient still not feeling well has some shortness of breath and her heart rate is racing. She did not receive higher dose of metoprolol. Objective Vital Signs Temp Pulse Pulse Resp Resp BP BP 04/22/22 09:45 04/22/22 09:17 22 04/22/22 08:11 98.1 F 18 140/93 04/22/22 04:05 97.9 F 110 H 18 120/91 04/22/22 00:18 04/22/22 00:10 04/21/22 23:36 108 H 04/21/22 21:47 98.4 F 108 H 19 120/89 04/21/22 21:15 110 H 129/100 04/21/22 21:00 102 H 22 111/86 04/21/22 20:46 108 H 24 121/90 04/21/22 20:16 103 H 18 111/86 04/21/22 20:00 100 H 23 124/93 04/21/22 19:46 107 H 21 125/91 04/21/22 19:40 98.3 F 107 H 15 126/94 04/21/22 19:30 100 H 23 126/94 04/21/22 19:00 115 H 16 130/97 04/21/22 18:46 100 H 24 129/96 04/21/22 18:30 112 H 22 125/91 04/21/22 18:15 108 H 20 132/97 04/21/22 18:00 102 H 23 140/107 04/21/22 17:45 121 H 16 135/94 04/21/22 17:30 126 H 13 150/64 04/21/22 17:16 121 H 24 133/98 04/21/22 17:00 102 H 17 144/102 04/21/22 16:46 126 H 12 156/111 04/21/22 16:30 108 H 25 H 144/102 04/21/22 16:15 94 H 24 118/93 04/21/22 16:00 115 H 25 H 04/21/22 15:46 88 26 H 129/82 04/21/22 15:30 125 H 27 H 129/94 04/21/22 15:16 108 H 22 96/81 04/21/22 15:00 114 H 11 L 85/61 04/21/22 14:49 109 H 16 96/81 04/21/22 14:46 105 H 17 110/79 04/21/22 14:34 115 H 19 04/21/22 14:30 108 H 17 110/79 04/21/22 14:16 108 H 25 H 110/79 04/21/22 14:00 92 H 24 110/79 04/21/22 13:46 118 H 17 110/79 04/21/22 13:30 110/79 04/21/22 12:29 94.1 F L 86 16 117/86 Pulse Ox 04/22/22 09:45 97 04/22/22 09:17 04/22/22 08:11 04/22/22 04:05 100 04/22/22 00:18 100 04/22/22 00:10 100 04/21/22 23:36 04/21/22 21:47 98 04/21/22 21:15 100 04/21/22 21:00 100 04/21/22 20:46 100 04/21/22 20:16 99 04/21/22 20:00 100 04/21/22 19:46 99 04/21/22 19:40 100 04/21/22 19:30 100 04/21/22 19:00 100 04/21/22 18:46 98 04/21/22 18:30 100 04/21/22 18:15 89 04/21/22 18:00 99 04/21/22 17:45 100 04/21/22 17:30 99 04/21/22 17:16 100 04/21/22 17:00 100 04/21/22 16:46 100 04/21/22 16:30 100 04/21/22 16:15 100 04/21/22 16:00 98 04/21/22 15:46 100 04/21/22 15:30 04/21/22 15:16 100 04/21/22 15:00 100 04/21/22 14:49 100 04/21/22 14:46 100 04/21/22 14:34 04/21/22 14:30 100 04/21/22 14:16 100 04/21/22 14:00 100 04/21/22 13:46 100 04/21/22 13:30 100 04/21/22 12:29 100 - Physical Examination General: No Apparent Distress HEENT: Positive: PERRL Neck: Positive: neck supple. Negative: JVD/HJR Cardiac: Positive: Irregularly Regular, S1/S2. Negative: Audible Murmur Lungs: Positive: Decreased Breath Sounds, Wheezes Neuro: Positive: Grossly Intact Abdomen: Positive: Soft Skin: Negative: Rash Extremities: Absent: edema - Labs and Meds Cardiac Enzymes 04/21/22 Range/Units 13:49 CK-MB (CK-2) 3.1 (0.0-4.0) ng/mL Coagulation 04/21/22 04/22/22 Range/Units 13:49 08:29 PT 18.5 H 16.4 H (12.2-14.9) Sec. INR 1.37 H 1.18 H (0.87-1.13) APTT 34.6 33.9 (24.2-36.6) Sec. CBC 04/21/22 04/22/22 Range/Units 13:49 08:29 WBC 5.8 6.8 (4.5-11.0) K/mm3 RBC 4.89 4.79 (3.65-5.03) M/mm3 Hgb 13.3 13.3 (10.1-14.3) gm/dl Hct 43.0 H 41.9 (30.3-42.9) % Plt Count 225 227 (140-440) K/mm3 Lymph # (Auto) 1.1 L (1.2-5.4) K/mm3 [place] # (Auto) 0.4 (0.0-0.8) K/mm3 Eos # (Auto) 0.1 (0.0-0.4) K/mm3 Baso # (Auto) 0.0 (0.0-0.1) K/mm3 Comprehensive Metabolic Panel 04/21/22 04/22/22 04/22/22 Range/Units 13:49 06:59 08:29 Sodium 141 141 (137-145) mmol/L Potassium 5.4 H 4.4 (3.6-5.0) mmol/L Chloride 106.6 102.4 (98-107) mmol/L Carbon Dioxide 27 30 (22-30) mmol/L BUN 8 10 (7-17) mg/dL Creatinine 0.7 0.8 0.7 (0.6-1.2) mg/dL Glucose 105 H 84 (65-100) mg/dL Calcium 8.9 9.2 (8.4-10.2) mg/dL - Telemetry EKG Rhythm: Atrial Fibrillation
[2022-04-22] MEDS: APIXABAN 5 MG TAB PO SCH ×2 (10:36→21:18)
[2022-04-22] MEDS: METOPROLOL TARTRATE 100 MG TAB PO SCH ×2 (10:36→18:22)
--- NOTE | 2022-04-22 11:29 | Progress Note ---
Assessment and Plan Assessment and plan: #Acute asthma exacerbation #Acute hypoxic respiratory failure -patient reports history of controlled asthma with no exacerbation in the last year, takes albuterol PRN at home -patient does not smoke -CXR negative for acute findings -No baseline oxygen requirement at home, currently on 3 L; will wean as tolerated -Scheduled DuoNebs 4 times daily and albuterol as needed -Steroids started -will monitor for improvement #Atrial fibrillation -continue eliquis + metoprolol (metoprolol increased to 100mg BID) -Cardiology following, assistance appreciated -will follow up for scheduled cardioversion Tuesday #Chronic systolic heart failure -EF 45-50% per Cardiology note, not in acute exacerbation -will continue lisinopril, imdur, and metoprolol #History of [place] -continue ASA, plavix and lipitor at home doses #Hyperkalemia -K 5.5 -> 4.5 s/p medical management -will continue to monitor #Obesity #Weight loss counseling #Exercise counseling -BMI 39.2 - Counseled patient on the importance of weight loss, incorporating exercise, and dietary changes (lean meats, fresh fruits and vegetables, and water intake). Patient expresses understanding. - Time: +15 min #Advanced care planning -Disease education conducted, care plan discussed, diagnoses discussed, prognosis discussed, and patient acknowledges understanding with care plan -Time: +30 min History Interval history: No acute events overnight. Patient reports having increased shortness of breath, dyspnea on exertion, cough and wheezing for the past few days. She denies fevers, chills or night sweats. She reports not having a eczema exac erbation in a long time and takes albuterol as needed at home. Patient was updated about current care plan and agreeable. Hospitalist Physical - Physical exam Narrative exam: GENERAL: Well-developed well-nourished. In no acute distress. HEENT: Nasal cannula in place at 3 L/min. NECK: Supple. CHEST/LUNGS: Expiratory wheezes bilaterally on supplemental O2. HEART/CARDIOVASCULAR: Irregularly irregular rhythm. No murmur, rubs or gallops appreciated. ABDOMEN: +BS. NT/ND. SKIN: No rashes noted. NEURO: No focal motor deficit. Follows all commands. MUSCULOSKELETAL: No joint effusion EXTREMITIES: No cyanosis, clubbing. Mild lower extremity edema. PSYCH: Cooperative. - Constitutional Vitals: Temp Pulse Resp BP Pulse Ox 98.1 F 110 H 22 140/93 97 04/22/22 08:11 04/22/22 04:05 04/22/22 09:17 04/22/22 08:11 04/22/22 09:45 General appearance: Present: mild distress HEART Score - HEART Score EKG: Non-specific Age: 45-65 Risk factors: 1-2 risk factors Troponin: Troponin T < 0.010 ng/mL (0.00-0.029) 04/21/22 13:49 Troponin: < normal limit Results - Labs CBC & Chem 7: 04/22/22 08:29 04/22/22 08:29 Labs: Laboratory Last Values WBC 6.8 K/mm3 (4.5-11.0) 04/22/22 08:29 RBC 4.79 M/mm3 (3.65-5.03) 04/22/22 08:29 Hgb 13.3 gm/dl (10.1-14.3) 04/22/22 08:29 Hct 41.9 % (30.3-42.9) 04/22/22 08:29 MCV 87 fl (79-97) 04/22/22 08:29 MCH 28 pg (28-32) 04/22/22 08:29 MCHC 32 % (30-34) 04/22/22 08:29 RDW 16.7 % (13.2-15.2) H 04/22/22 08:29 Plt Count 227 K/mm3 (140-440) 04/22/22 08:29 Lymph % (Auto) 19.3 % (13.4-35.0) 04/21/22 13:49 [place] % (Auto) 7.3 % (0.0-7.3) 04/21/22 13:49 Eos % (Auto) 1.4 % (0.0-4.3) 04/21/22 13:49 Baso % (Auto) 0.8 % (0.0-1.8) 04/21/22 13:49 Lymph # (Auto) 1.1 K/mm3 (1.2-5.4) L 04/21/22 13:49 [place] # (Auto) 0.4 K/mm3 (0.0-0.8) 04/21/22 13:49 Eos # (Auto) 0.1 K/mm3 (0.0-0.4) 04/21/22 13:49 Baso # (Auto) 0.0 K/mm3 (0.0-0.1) 04/21/22 13:49 Seg Neutrophils % 71.2 % (40.0-70.0) H 04/21/22 13:49 Seg Neutrophils # 4.1 K/mm3 (1.8-7.7) 04/21/22 13:49 PT 16.4 Sec. (12.2-14.9) H 04/22/22 08:29 INR 1.18 (0.87-1.13) H 04/22/22 08:29 APTT 33.9 Sec. (24.2-36.6) 04/22/22 08:29 VBG pH 7.285 (7.320-7.420) L 04/21/22 13:49 Sodium 141 mmol/L (137-145) 04/22/22 06:59 Potassium 4.4 mmol/L (3.6-5.0) 04/22/22 06:59 Chloride 102.4 mmol/L (98-107) 04/22/22 06:59 Carbon Dioxide 30 mmol/L (22-30) 04/22/22 06:59 Anion Gap 13 mmol/L 04/22/22 06:59 BUN 10 mg/dL (7-17) 04/22/22 06:59 Creatinine 0.7 mg/dL (0.6-1.2) 04/22/22 08:29 Estimated GFR > 60 ml/min 04/22/22 08:29 BUN/Creatinine Ratio 13 % 04/22/22 06:59 Glucose 84 mg/dL (65-100) 04/22/22 06:59 POC Glucose 152 mg/dL (70-105) H 04/21/22 22:00 Calcium 9.2 mg/dL (8.4-10.2) 04/22/22 06:59 Total Creatine Kinase 153 units/L (30-135) H 04/21/22 13:49 CK-MB (CK-2) 3.1 ng/mL (0.0-4.0) 04/21/22 13:49 CK-MB (CK-2) Rel Index 2.0 (0-4) 04/21/22 13:49 Troponin T < 0.010 ng/mL (0.00-0.029) 04/21/22 13:49 NT-Pro-B Natriuret Pep 1779 pg/mL (0-900) H 04/21/22 13:49 TSH 1.150 mlU/mL (0.270-4.200) 04/21/22 13:49 Free T4 1.20 ng/dL (0.76-1.46) 04/21/22 13:49 Active Medications - Current Medications Current Medications: Generic Name Dose Route Start Last Admin Trade Name Freq PRN Reason Stop Dose Admin Acetaminophen 650 mg 04/21/22 17:00 Acetaminophen 325 Mg Tab PO Q4H PRN Pain MILD(1-3)/Fever >100.5/[place] Albuterol 2.5 mg 04/21/22 17:00 04/22/22 09:40 Albuterol 2.5 Mg/3 Ml Nebu IH 2.5 mg Q4HRT PRN Administration Shortness Of Breath Albuterol/Ipratropium 1 ampul 04/22/22 12:00 Ipratropium/Albuterol Sulfate 3 Ml Ampul.Neb IH QIDRT DEMI Apixaban 5 mg 04/22/22 10:00 04/22/22 10:36 Apixaban 5 Mg Tab PO 5 mg Q12HR DEMI Administration Protocol Atorvastatin Calcium 80 mg 04/21/22 22:00 04/21/22 23:40 Atorvastatin 40 Mg Tab PO 80 mg QHS DEMI Administration Clopidogrel Bisulfate 75 mg 04/22/22 10:00 04/22/22 09:06 Clopidogrel 75 Mg Tab PO 75 mg QDAY DEMI Administration Docusate Sodium 100 mg 04/21/22 22:00 04/22/22 09:07 Docusate Sodium 100 Mg Cap PO 100 mg BID DEMI Administration Hydromorphone HCl 0.5 mg 04/21/22 17:00 04/21/22 23:48 Hydromorphone 0.5 Mg/0.5 Ml Inj IV 0.5 mg Q13H PRN Administration Pain , Severe (7-10) Isosorbide Mononitrate 30 mg 04/22/22 10:00 04/22/22 09:07 Isosorbide Mononitrate Er 30 Mg Tab PO 30 mg QDAY DEMI Administration Lisinopril 5 mg 04/22/22 10:00 04/22/22 09:07 Lisinopril 5 Mg Tab PO 5 mg QDAY DEMI Administration Methylprednisolone Sodium Succinate 60 mg 04/22/22 10:00 04/22/22 10:36 Methylprednisolone Sod Succinate 125 Mg/2 Ml Inj IV 04/22/22 23:00 60 mg ONCE DEMI Administration Metoprolol Tartrate 100 mg 04/22/22 10:30 04/22/22 10:36 Metoprolol Tartrate 100 Mg Tab PO 100 mg BID@0800,1700 DEMI Administration Nitroglycerin 0.4 mg 04/21/22 17:00 Nitroglycerin 0.4 Mg Tab Subl SL .Q5MIN PRN Chest Pain Ondansetron HCl 4 mg 04/21/22 17:00 Ondansetron 4 Mg/2 Ml Inj IV Q8H PRN Nausea And Vomiting Oxycodone/Acetaminophen 1 tab 04/21/22 17:00 04/22/22 09:17 Oxycodone /Acetaminophen 5-325mg Tab PO 1 tab Q6H PRN Administration Pain, Moderate (4-6) Prednisone 40 mg 04/23/22 10:00 Prednisone 20 Mg Tab PO QDAY DEMI Sodium Chloride 10 ml 04/21/22 17:00 04/21/22 23:41 Sodium Chloride 0.9% 10 Ml Flush Syringe IV 10 ml BID DEMI Administration Sodium Chloride 10 ml 04/21/22 17:00 Sodium Chloride 0.9% 10 Ml Flush Syringe IV PRN PRN LINE FLUSH
--- NOTE | 2022-04-22 12:23 | Electrocardiograph Report ---
[facility] Test Date: 2022-04-21 Test Time: 13:35:33 Pat Name: LIBRADO ENRIQUEZ Department: Room: A459 Gender: F Last Pattern Grader: TV : 1965 Requested By: SORAYA LONG Order Number: [id number] Reading MD: Catherine Giordano Measurements Intervals [place] Rate: 90 P: [place]: QRS: -52 QRSD: 95 T: -11 QT: 372 QTc: 455 Interpretive Statements Atrial fibrillation Ventricular premature complex LAD, consider left anterior fascicular block Poor R wave progression Compared to ECG 02/14/2022 10:12:05 Ventricular premature complex(es) now present Sinus rhythm no longer present Myocardial infarct finding still present Electronically Signed On 04-22-2022 12:23:36 EDT by Catherine Giordano
[2022-04-22] MEDS: IPRATROPIUM/ALBUTEROL SULFATE 3 ML AMPUL.NEB IH SCH ×3 (14:13→19:36)
[2022-04-22] MEDS: HYDROmorphone 0.5 MG/0.5 ML INJ IV PRN (14:20)
[2022-04-22] MEDS: METOPROLOL TARTRATE 50 MG TAB PO SCH (20:05)
[2022-04-23] MEDS: HYDROmorphone 0.5 MG/0.5 ML INJ IV PRN ×2 (00:44→13:09)
[2022-04-23] MEDS: predniSONE 20 MG TAB PO SCH (09:38)
[2022-04-23] MEDS: APIXABAN 5 MG TAB PO SCH ×2 (09:38→21:46)
[2022-04-23] MEDS: DOCUSATE SODIUM 100 MG CAP PO SCH ×2 (09:38→21:46)
[2022-04-23] MEDS: METOPROLOL TARTRATE 100 MG TAB PO SCH ×2 (09:38→17:08)
[2022-04-23] MEDS: CLOPIDOGREL 75 MG TAB PO SCH (09:38)
[2022-04-23] MEDS: LISINOPRIL 5 MG TAB PO SCH (09:39)
[2022-04-23] MEDS: IPRATROPIUM/ALBUTEROL SULFATE 3 ML AMPUL.NEB IH SCH ×4 (10:49→20:56)
--- NOTE | 2022-04-23 11:48 | Progress Note ---
Assessment and Plan Assessment and plan: #Acute asthma exacerbation #Acute hypoxic respiratory failure -patient reports history of controlled asthma with no exacerbation in the last year, takes albuterol PRN at home -patient does not smoke -CXR negative for acute findings -No baseline oxygen requirement at home, currently on 2 L; will wean as tolerated -Home O2 evaluation ordered today -Scheduled DuoNebs 4 times daily and albuterol as needed -continue steroids #Atrial fibrillation -continue eliquis + metoprolol 100mg BID -Cardiology following, assistance appreciated -will follow up for scheduled cardioversion Tuesday #Chronic systolic heart failure -EF 45-50% per Cardiology note, not in acute exacerbation -will continue lisinopril, imdur, and metoprolol #History of [place] -continue ASA, plavix and lipitor at home doses #Hyperkalemia -will continue to monitor #Obesity #Weight loss counseling #Exercise counseling -BMI 39.2 - Counseled patient on the importance of weight loss, incorporating exercise, and dietary changes (lean meats, fresh fruits and vegetables, and water intake). Patient expresses understanding. - Time: +15 min #Advanced care planning -Disease education conducted, care plan discussed, diagnoses discussed, prognosis discussed, and patient acknowledges understanding with care plan -Time: +30 min History Interval history: No acute events overnight. Patient reports some improvement in shortness of breath, dyspnea on exertion. Updated about current care plan. Still on supplemental O2. Home O2 walk evaluation ordered. Hospitalist Physical - Physical exam Narrative exam: GENERAL: Well-developed well-nourished. In no acute distress. HEENT: Nasal cannula in place at 2 L/min. NECK: Supple. CHEST/LUNGS: Improved expiratory wheezes bilaterally on supplemental O2. HEART/CARDIOVASCULAR: Irregularly irregular rhythm. No murmur, rubs or gallops appreciated. ABDOMEN: +BS. NT/ND. SKIN: No rashes noted. NEURO: No focal motor deficit. Follows all commands. MUSCULOSKELETAL: No joint effusion EXTREMITIES: No cyanosis, clubbing. Mild lower extremity edema improving. PSYCH: Cooperative. - Constitutional Vitals: Temp Pulse Resp BP Pulse Ox 97.8 F 105 H 22 120/82 99 04/23/22 08:10 04/23/22 09:38 04/23/22 09:37 04/23/22 09:39 04/23/22 10:45 General appearance: Present: mild distress HEART Score - HEART Score EKG: Non-specific Age: 45-65 Risk factors: 1-2 risk factors Troponin: Troponin T < 0.010 ng/mL (0.00-0.029) 04/21/22 13:49 Troponin: < normal limit Results - Labs CBC & Chem 7: 04/22/22 08:29 04/22/22 08:29 Labs: Laboratory Last Values WBC 6.8 K/mm3 (4.5-11.0) 04/22/22 08:29 RBC 4.79 M/mm3 (3.65-5.03) 04/22/22 08:29 Hgb 13.3 gm/dl (10.1-14.3) 04/22/22 08:29 Hct 41.9 % (30.3-42.9) 04/22/22 08:29 MCV 87 fl (79-97) 04/22/22 08:29 MCH 28 pg (28-32) 04/22/22 08:29 MCHC 32 % (30-34) 04/22/22 08:29 RDW 16.7 % (13.2-15.2) H 04/22/22 08:29 Plt Count 227 K/mm3 (140-440) 04/22/22 08:29 Lymph % (Auto) 19.3 % (13.4-35.0) 04/21/22 13:49 [place] % (Auto) 7.3 % (0.0-7.3) 04/21/22 13:49 Eos % (Auto) 1.4 % (0.0-4.3) 04/21/22 13:49 Baso % (Auto) 0.8 % (0.0-1.8) 04/21/22 13:49 Lymph # (Auto) 1.1 K/mm3 (1.2-5.4) L 04/21/22 13:49 [place] # (Auto) 0.4 K/mm3 (0.0-0.8) 04/21/22 13:49 Eos # (Auto) 0.1 K/mm3 (0.0-0.4) 04/21/22 13:49 Baso # (Auto) 0.0 K/mm3 (0.0-0.1) 04/21/22 13:49 Seg Neutrophils % 71.2 % (40.0-70.0) H 04/21/22 13:49 Seg Neutrophils # 4.1 K/mm3 (1.8-7.7) 04/21/22 13:49 PT 16.4 Sec. (12.2-14.9) H 04/22/22 08:29 INR 1.18 (0.87-1.13) H 04/22/22 08:29 APTT 33.9 Sec. (24.2-36.6) 04/22/22 08:29 VBG pH 7.285 (7.320-7.420) L 04/21/22 13:49 Sodium 141 mmol/L (137-145) 04/22/22 06:59 Potassium 4.4 mmol/L (3.6-5.0) 04/22/22 06:59 Chloride 102.4 mmol/L (98-107) 04/22/22 06:59 Carbon Dioxide 30 mmol/L (22-30) 04/22/22 06:59 Anion Gap 13 mmol/L 04/22/22 06:59 BUN 10 mg/dL (7-17) 04/22/22 06:59 Creatinine 0.7 mg/dL (0.6-1.2) 04/22/22 08:29 Estimated GFR > 60 ml/min 04/22/22 08:29 BUN/Creatinine Ratio 13 % 04/22/22 06:59 Glucose 84 mg/dL (65-100) 04/22/22 06:59 POC Glucose 191 mg/dL (70-105) H 04/22/22 21:34 Calcium 9.2 mg/dL (8.4-10.2) 04/22/22 06:59 Total Creatine Kinase 153 units/L (30-135) H 04/21/22 13:49 CK-MB (CK-2) 3.1 ng/mL (0.0-4.0) 04/21/22 13:49 CK-MB (CK-2) Rel Index 2.0 (0-4) 04/21/22 13:49 Troponin T < 0.010 ng/mL (0.00-0.029) 04/21/22 13:49 NT-Pro-B Natriuret Pep 1779 pg/mL (0-900) H 04/21/22 13:49 TSH 1.150 mlU/mL (0.270-4.200) 04/21/22 13:49 Free T4 1.20 ng/dL (0.76-1.46) 04/21/22 13:49 Lara/IV: Voiding Method Toilet Active Medications - Current Medications Current Medications: Generic Name Dose Route Start Last Admin Trade Name Freq PRN Reason Stop Dose Admin Acetaminophen 650 mg 04/21/22 17:00 04/23/22 09:37 Acetaminophen 325 Mg Tab PO 650 mg Q4H PRN Administration Pain MILD(1-3)/Fever >100.5/[place] Albuterol 2.5 mg 04/21/22 17:00 04/22/22 09:40 Albuterol 2.5 Mg/3 Ml Nebu IH 2.5 mg Q4HRT PRN Administration Shortness Of Breath Albuterol/Ipratropium 1 ampul 04/22/22 12:00 04/23/22 10:49 Ipratropium/Albuterol Sulfate 3 Ml Ampul.Neb IH 1 ampul QIDRT DEMI Administration Apixaban 5 mg 04/22/22 10:00 04/23/22 09:38 Apixaban 5 Mg Tab PO 5 mg Q12HR DEMI Administration Protocol Atorvastatin Calcium 80 mg 04/21/22 22:00 04/22/22 21:18 Atorvastatin 40 Mg Tab PO 80 mg QHS DEMI Administration Clopidogrel Bisulfate 75 mg 04/22/22 10:00 04/23/22 09:38 Clopidogrel 75 Mg Tab PO 75 mg QDAY DEMI Administration Docusate Sodium 100 mg 04/21/22 22:00 04/23/22 09:38 Docusate Sodium 100 Mg Cap PO 100 mg BID DEMI Administration Hydromorphone HCl 0.5 mg 04/21/22 17:00 04/23/22 00:44 Hydromorphone 0.5 Mg/0.5 Ml Inj IV 0.5 mg Q13H PRN Administration Pain , Severe (7-10) Isosorbide Mononitrate 30 mg 04/22/22 10:00 04/23/22 09:38 Isosorbide Mononitrate Er 30 Mg Tab PO 30 mg QDAY DEMI Administration Lisinopril 5 mg 04/22/22 10:00 04/23/22 09:39 Lisinopril 5 Mg Tab PO 5 mg QDAY DEMI Administration Metoprolol Tartrate 100 mg 04/22/22 10:30 04/23/22 09:38 Metoprolol Tartrate 100 Mg Tab PO 100 mg BID@0800,1700 DEMI Administration Nitroglycerin 0.4 mg 04/21/22 17:00 Nitroglycerin 0.4 Mg Tab Subl SL .Q5MIN PRN Chest Pain Ondansetron HCl 4 mg 04/21/22 17:00 Ondansetron 4 Mg/2 Ml Inj IV Q8H PRN Nausea And Vomiting Oxycodone/Acetaminophen 1 tab 04/21/22 17:00 04/22/22 18:35 Oxycodone /Acetaminophen 5-325mg Tab PO 1 tab Q6H PRN Administration Pain, Moderate (4-6) Prednisone 40 mg 04/23/22 10:00 04/23/22 09:38 Prednisone 20 Mg Tab PO 40 mg QDAY DEMI Administration Sodium Chloride 10 ml 04/21/22 17:00 04/22/22 21:19 Sodium Chloride 0.9% 10 Ml Flush Syringe IV 10 ml BID DEMI Administration Sodium Chloride 10 ml 04/21/22 17:00 Sodium Chloride 0.9% 10 Ml Flush Syringe IV PRN PRN LINE FLUSH
--- NOTE | 2022-04-23 15:06 | Progress Note ---
Assessment and Plan She appears to be in asthma exacerbation. Treatment per primary team. - Patient Problems (1) Atrial fibrillation Current Visit: No Status: Chronic Qualifiers: Plan to address problem: We will continue the rate control strategy with metoprolol 100 twice daily. In the rates are still more than 100 can load with digoxin. After discharge we will refer her for her scheduled cardioversion and class III antiarrhythmic drug loading. Continue her home dose of apixaban. (2) CHF (congestive heart failure) Current Visit: Yes Status: Acute Plan to address problem: She does not appears to be in overt heart failure. Her last ejection fraction is 45 to 50% in the setting of acute OR in February 2022. Her proBNP is slightly elevated. asthma management per primary team. (3) Chest pain Current Visit: No Status: Acute Plan to address problem: Her chest pain is probably related to A. fib and RVR. Given her history we will rule out acute OR with serial troponins. Continue her home medications. Subjective Principal diagnosis: Afib Interval history: Patient feeling better. She did not receive higher dose of metoprolol. Objective Vital Signs Temp Pulse Pulse Pulse Resp Resp BP 04/23/22 13:20 113 H 22 04/23/22 12:00 130 H 04/23/22 11:52 97.5 F L 97 H 18 118/72 04/23/22 10:45 04/23/22 09:39 120/82 04/23/22 09:38 105 H 04/23/22 09:37 22 04/23/22 08:10 97.8 F 108 H 18 120/82 04/23/22 07:00 130 H 04/23/22 04:19 97.9 F 89 18 114/68 04/23/22 00:00 89 24 04/22/22 23:49 98.3 F 84 19 110/85 04/22/22 23:00 117 H 04/22/22 22:00 97 H 20 04/22/22 19:56 97 H 20 04/22/22 19:52 98.1 F 91 H 18 107/67 04/22/22 19:38 04/22/22 18:35 20 04/22/22 18:22 126 H 04/22/22 15:30 98.1 F 125 H 19 133/96 04/22/22 15:20 98 H 18 Pulse Ox 04/23/22 13:20 97 04/23/22 12:00 97 04/23/22 11:52 99 04/23/22 10:45 99 04/23/22 09:39 04/23/22 09:38 04/23/22 09:37 04/23/22 08:10 98 04/23/22 07:00 04/23/22 04:19 96 04/23/22 00:00 98 04/22/22 23:49 95 04/22/22 23:00 04/22/22 22:00 04/22/22 19:56 04/22/22 19:52 97 04/22/22 19:38 96 04/22/22 18:35 04/22/22 18:22 04/22/22 15:30 97 04/22/22 15:20 - Physical Examination General: No Apparent Distress HEENT: Positive: PERRL Neck: Positive: neck supple. Negative: JVD/HJR Cardiac: Positive: Irregularly Regular, S1/S2 Lungs: Positive: clear to auscultation Neuro: Positive: Grossly Intact Abdomen: Positive: Soft Skin: Negative: Rash Extremities: Absent: edema
[2022-04-23] MEDS: oxyCODONE /ACETAMINOPHEN 5-325MG TAB PO PRN (17:09)
[2022-04-24] MEDS: HYDROmorphone 0.5 MG/0.5 ML INJ IV PRN (01:09)
[2022-04-24] MEDS ORDERED: KETOROLAC 30 MG/1 ML INJ IV ONE (01:45)
[2022-04-24 04:16] VITALS: BP 135/83
[2022-04-24 07:23] LABS: Hematocrit 40.6 % (30.3-42.9); Mean Corpuscular HGB Conc 32 % (30-34); Mean Corpuscular Volume 87 fl (79-97); Platelet Count 233 K/mm3 (140-440); Red Blood Count 4.66 M/mm3 (3.65-5.03); Red Cell Distribution Width 17.1 % (13.2-15.2)
--- NOTE | 2022-04-24 08:28 | Discharge Summary ---
Providers - Providers Date of Admission: 04/21/22 16:37 Date of discharge: 04/24/22 Attending physician: RENEE HOWELL MD 04/21/22 15:52 Consult to Physician [CONS] Urgent Comment: Consulting Provider: ALEXEY MCGEE Physician Instructions: Reason For Exam: Chest pain/A. fib Primary care physician: [employer]ESSOR Hospitalization Reason for admission: acute asthma exacerbation; atrial fibrillation Condition: Stable Hospital course: 56-year-old female with history of atrial fibrillation on therapeutic anticoagulation, diabetes and mild intermittent asthma who was admitted for acute asthma exacerbation. Patient was also found to be in atrial fibrillation and cardiology was consulted. No cardiology intervention was performed due to patient's upcoming planned cardioversion on 04/26/2022. Patient was placed on supplemental oxygen and eventually weaned off. Once stable, she was discharged home with steroid taper for asthma exacerbation. Disposition: 01 HOME / SELF CARE / HOMELESS Final Discharge Diagnosis (Prints w/discharge instructions): Acute asthma exacerbation. Acute hypoxic respiratory failure. Atrial fibrillation. Chronic systolic heart failure. History of [place]. Hyperkalemia. Obesity Time spent for discharge: 40 minutes Core Measure Documentation - Palliative Care Palliative Care/ Comfort Measures: Not Applicable - Core Measures Any of the following diagnoses?: history only Exam - Physical Exam Narrative exam: GENERAL: Well-developed well-nourished. In no acute distress. HEENT: Normocephalic, atraumatic. NECK: Supple. CHEST/LUNGS: Improved expiratory wheezes bilaterally on RA HEART/CARDIOVASCULAR: Irregularly irregular rhythm. No murmur, rubs or gallops appreciated. ABDOMEN: +BS. NT/ND. SKIN: No rashes noted. NEURO: No focal motor deficit. Follows all commands. MUSCULOSKELETAL: No joint effusion EXTREMITIES: No cyanosis, clubbing. Mild lower extremity edema improving. PSYCH: Cooperative. - Constitutional Vitals: Temp Pulse Resp BP Pulse Ox 97.4 F L 90 18 135/83 98 04/24/22 03:52 04/24/22 03:52 04/24/22 03:52 04/24/22 03:52 04/24/22 03:52 Plan Care Plan Goals: Follow-up to primary care provider. Make sure to follow through with your cardiology appointment on Tuesday. Please continue to take all your medications as they are prescribed to you. Follow up with: PRIMARY MD MARIELLA [Primary Care Provider] - 7 Days ALEXEY MCGEE MD [Staff Physician] - 7 Days Prescriptions: Nebulizer Accessories [Adult Aerosol Mask] 1 each MC TID 30 Days #1 each Nebulizer and Compressor [Easy Air Compressor Nebulizer] 1 each MC TID 30 Days #1 each Metoprolol [Lopressor TAB] 100 mg PO BID@0800,1700 30 Days #60 tablet Prednisone [predniSONE 5 mg (6-Day Pack, 21 Tabs)] 5 mg PO .TAPER 6 Days #1 each Albuterol Sulfate [Proair Respiclick] 90 mcg IH Q6H PRN 30 Days #2 each PRN Reason: Wheezing ALBUTEROL NEB's [Proventil 0.083% NEBS] 2.5 mg IH TID PRN 30 Days #90 neb PRN Reason: Wheezing
[2022-04-24] MEDS: IPRATROPIUM/ALBUTEROL SULFATE 3 ML AMPUL.NEB IH SCH ×2 (08:57→15:05)
[2022-04-24] MEDS: LISINOPRIL 5 MG TAB PO SCH (09:39)
[2022-04-24] MEDS: METOPROLOL TARTRATE 100 MG TAB PO SCH (09:39)
[2022-04-24] MEDS: CLOPIDOGREL 75 MG TAB PO SCH (09:39)
[2022-04-24] MEDS: APIXABAN 5 MG TAB PO SCH (09:40)
[2022-04-24] MEDS: predniSONE 20 MG TAB PO SCH (09:40)
[2022-04-24] MEDS: DOCUSATE SODIUM 100 MG CAP PO SCH (09:40)
[2022-04-24] MEDS: oxyCODONE /ACETAMINOPHEN 5-325MG TAB PO PRN (09:43)
== END 2022-04-24 14:20 | disposition home or self-care (01) | DRG 308 ==
LOC: ED 12:25 → 4A 16:37
PROVIDERS: ADMIT Internal Medicine; ATTEND Student in an Organized Health Care Education/Training Program
DX: I48.91 Unspecified atrial fibrillation (principal); J96.01 Acute respiratory failure with hypoxia; J45.901 Unspecified asthma with (acute) exacerbation; I50.22 Chronic systolic (congestive) heart failure; I95.9 Hypotension, unspecified; I11.0 Hypertensive heart disease with heart failure; F31.9 Bipolar disorder, unspecified; E11.9 Type 2 diabetes mellitus without complications; M17.11 Unilateral primary osteoarthritis, right knee; E87.5 Hyperkalemia; E66.9 Obesity, unspecified; Z71.3 Dietary counseling and surveillance; Z68.39 Body mass index [BMI] 39.0-39.9, adult; I25.2 Old myocardial infarction; Z87.891 Personal history of nicotine dependence; Z88.8 Allergy status to other drugs, medicaments and biological substances; Z88.5 Allergy status to narcotic agent; Z79.82 Long term (current) use of aspirin; Z79.899 Other long term (current) drug therapy; Z83.3 Family history of diabetes mellitus; Z82.49 Family history of ischemic heart disease and other diseases of the circulatory system
CPT/HCPCS: 36415; 71045; 80048; 82550; 82553; 82565; 82805; 82962; 83880; 84439; 84443; 84484; 85025; 85027; 85610; 85730; 93005; 94640; 94644; 94760; 99285; G0378; J1170; J1885; J2930

== ENCOUNTER 2022-05-17 05:25 | Inpatient (IN) | payer MEDICARE ==
[2022-05-17] MEDS ORDERED: ALBUTEROL 2.5 MG/3 ML NEBU IH ONE ×2 (06:19→11:21)
[2022-05-17] MEDS ORDERED: IPRATROPIUM 0.02% NEBU 2.5 ML IH ONE (06:19)
[2022-05-17] MEDS ORDERED: niCARdipine DRIP 40 MG/200 ML BAG IV ONE (06:20)
[2022-05-17] MEDS ORDERED: dilTIAZem 25 MG/5 ML INJ IV ONE (06:20)
[2022-05-17 06:50] LABS: Basophils % (Auto) 0.7 % (0.0-1.8); Eosinophils # (Auto) 0.1 K/mm3 (0.0-0.4); Eosinophils % (Auto) 1.8 % (0.0-4.3); Hematocrit 41.7 % (30.3-42.9); Hemoglobin 13.3 gm/dl (10.1-14.3); Lymphocytes # (Auto) 1.3 K/mm3 (1.2-5.4); Lymphocytes % (Auto) 19.5 % (13.4-35.0); Mean Corpuscular HGB Conc 32 % (30-34); Mean Corpuscular Volume 88 fl (79-97); Monocytes # (Auto) 0.4 K/mm3 (0.0-0.8); Monocytes % (Auto) 5.8 % (0.0-7.3); Platelet Count 209 K/mm3 (140-440); Red Blood Count 4.71 M/mm3 (3.65-5.03); Red Cell Distribution Width 18.1 % (13.2-15.2)
--- NOTE | 2022-05-17 06:54 | XRay Report ---
CHEST 1 VIEW INDICATION / CLINICAL INFORMATION: Dyspnea. COMPARISON: Chest x-ray 04/21/2022 FINDINGS: SUPPORT DEVICES: None. HEART / MEDIASTINUM: Borderline to mild cardiomegaly, stable. LUNGS / PLEURA: Lungs remain clear. BONES: No significant osseous abnormality. ADDITIONAL FINDINGS: No significant additional findings. IMPRESSION: 1. No active cardiopulmonary disease. Signer Name: Austin Mendez II, MD Signed: 05/17/2022 6:50 AM Workstation Name: [id number]
[2022-05-17 07:00] LABS: INR 1.06 (0.87-1.13)
[2022-05-17 07:07] LABS: Creatine Kinase MB 2.9 ng/mL (0.0-4.0)
[2022-05-17] MEDS ORDERED: AMIODARONE 150 MG/100 ML-ED 150 MG/100 ML BAG IV ONE (07:08)
[2022-05-17 07:10] LABS: Alanine Aminotransferase 26 units/L (7-56); Albumin 4.5 g/dL (3.9-5); BUN/Creatinine Ratio 11; Blood Urea Nitrogen 8 mg/dL (7-17); Calcium 9.6 mg/dL (8.4-10.2); Hemolysis Index 6
[2022-05-17] MEDS ORDERED: AMIODARONE 900 MG in DEXTROSE 5% IN WATER 482 ML IV SCH (08:00)
[2022-05-17] MEDS ORDERED: FUROSEMIDE 40 MG/4 ML INJ IV ONE (08:18)
[2022-05-17] MEDS ORDERED: LORazepam 1 MG TAB PO ONE (08:19)
[2022-05-17 10:22] LABS: Amphetamine Screen,Urine Negative; Benzodiazepines Screen,Urine Negative; Cannabinoid Screen,Urine Negative; Cocaine Screen,Urine Negative; Methadone Screen,Urine Negative; Opiate Screen,Urine Negative
[2022-05-17 10:42] LABS: Color,Urine Straw (Yellow); WBC,Urine < 1.0 /HPF (0.0-6.0)
[2022-05-17] MEDS ORDERED: METOPROLOL TARTRATE 5 MG/5 ML INJ IV ONE (11:21)
[2022-05-17] MEDS ORDERED: dilTIAZem/NaCl 125 MG/125 ML BAG IV SCH (13:00)
--- NOTE | 2022-05-17 13:33 | History and Physical Report ---
History of Present Illness Chief complaint: I cannot breathe and my medicine is not working History of present illness: 56 YO Female with [place], Diastolic CHF, Atrial Fib on therapeutic anticoagulation with Eliquis, DM, OA, Bipolar Disorder, Mild Intermittent Asthma, HLD, Metabolic Syndrome presents to ED for evaluation. Patient reports "I cannot breathe". Patient states that over the past 5 days she has experienced shortness of breath which she treated with increased inhaler use without improvement in symptoms. Patient acknowledges dyspnea on exertion, dyspnea at rest, orthopnea, paroxysmal nocturnal dyspnea, decreased exercise tolerance, as well as 8 pound unintentional weight gain over the same timeframe. EMS was notified and upon arrival the patient was found to be in distress and subsequent transported to [facility] for further care and evaluation of the aforementioned symptoms. The patient was seen and evaluated in the emergency department. All lab and imaging studies reviewed. Patient found the patient was found to be in distress and subsequent transported to [facility] for the care and evaluation of the aforementioned symptoms. The patient was seen and evaluated in respiratory. All lab and imaging studies reviewed. Patient was found to have clinical symptoms consistent with CHF decompensation as well as atrial fibrillation with rapid ventricular response. The patient was initiated on amiodarone drip with improvement in patient heart rate. Cardiology team consulted in ED. Patient admitted to telemetry and initiated on CHF protocol due to increased risk of worsening symptoms and for medical stabilization. Patient denies fever, chills, chest pain, productive cough, skin rash, recent contact, known exposure to COVID-19. Prior admission on 04/21/2022 reviewed. All medication listed at time of admission has been reconciled. Advanced care planning conducted in ED. Past History Past Medical History: atrial fib, diabetes, heart failure, hyperlipidemia, other (See HPI) Past Surgical History: Other (Shoulder surgery) Social history: single. denies: smoking, alcohol abuse, prescription drug abuse Family history: diabetes, hypertension Medications and Allergies Allergies Allergy/AdvReac Type Severity Reaction Status Date / Time morphine Allergy Hives Verified 04/22/22 10:21 ibuprofen [From Motrin] AdvReac Anaphylaxis Verified 04/22/22 10:21 Home Medications Medication Instructions Recorded Confirmed Last Taken Type Clopidogrel [Plavix] 75 mg PO QDAY #30 tablet 02/16/22 04/22/22 Unknown Rx ISOSORBIDE MONOnitrate [Imdur ER] 30 mg PO QDAY #30 tablet 02/16/22 04/22/22 Unknown Rx lisinopriL [Zestril TAB] 5 mg PO QDAY #30 tablet 02/16/22 04/22/22 Unknown Rx Apixaban [Eliquis] 5 mg PO Q12H 04/22/22 04/22/22 Unknown History AtorvaSTATin [Lipitor] 40 mg PO QHS 04/22/22 04/22/22 Unknown History Cholecalciferol Vit D3 [Vitamin D3 1,000 unit PO QDAY 04/22/22 04/22/22 Unknown History 1,000 UNIT TAB] Cyanocobalamin [Vitamin B-12] 1,000 mcg PO DAILY 04/22/22 04/22/22 Unknown History Cyclobenzaprine [Flexeril 10 MG 10 mg PO QHS PRN 04/22/22 04/22/22 Unknown H istory TAB] Diclofenac 1% [Diclofenac 1% 2 gm TP QID 04/22/22 04/22/22 Unknown History topical gel] Multivitamin with Minerals [Hair, 1 each PO QDAY 04/22/22 04/22/22 Unknown History Skin and Nails] Naloxegol Oxalate [Movantik] 1 tab PO DAILY 04/22/22 04/22/22 Unknown History Oxycodone HCl/Acetaminophen 1 each PO QDAY 04/22/22 04/22/22 Unknown History [Oxycodone-Acetaminophen 10-325] Vit A/Vit C/Vit E/Zinc/Copper [Eye 1 each PO QDAY 04/22/22 04/22/22 Unknown His tory Multivitamin Tablet] Vitamin E 1,000 unit PO QDAY 04/22/22 04/22/22 Unknown History metFORMIN [Glucophage] 500 mg PO BID 04/22/22 04/22/22 Unknown History ALBUTEROL NEB's [Proventil 0.083% 2.5 mg IH TID PRN 30 Days #90 neb 04/24/22 Unknown Rx NEBS] Albuterol Sulfate [Proair 90 mcg IH Q6H PRN 30 Days #2 each 04/24/22 Unknown Rx Respiclick] Metoprolol [Lopressor TAB] 100 mg PO BID@0800,1700 30 Days 04/24/22 Unknown Rx #60 tablet Nebulizer Accessories [Adult 1 each MC TID 30 Days #1 each 04/24/22 Unknown Rx Aerosol Mask] Nebulizer and Compressor [Easy Air 1 each MC TID 30 Days #1 each 04/24/22 Unknown Rx Compressor Nebulizer] Prednisone [predniSONE 5 mg (6-Day 5 mg PO .TAPER 6 Days #1 each 04/24/22 Unknown Rx Pack, 21 Tabs)] Active Meds: Active Medications Amiodarone HCl 900 mg/ (Dextrose) 500 mls @ 33.333 mls/hr IV DIRECT DEMI; Protocol Last Titration: 05/17/22 11:40 Dose: 0 mg/min, 0 mls/hr dilTIAZem/NaCl (Diltiazem/Nacl 125mg/125ml) 125 mg in 125 mls @ 5 mls/hr IV TITR DEMI; Protocol Review of Systems Constitutional: weight gain, no weight loss, no fever, no chills Ears, nose, mouth and throat: no ear pain, no ear discharge, no tinnitis, no decreased hearing, no nasal discharge Breasts: no change in shape, no swelling, no mass Cardiovascular: orthopnea, shortness of breath, dyspnea on exertion, paroxysmal nocturnal dyspnea, high blood pressure, decreased exercise tolerance, no chest pain Respiratory: no cough, no cough with sputum, no excessive sputum Gastrointestinal: no abdominal pain, no nausea, no diarrhea, no constipation Genitourinary Female: no pelvic pain, no flank pain, no dysuria, no urinary frequency, no urgency Rectal: no pain, no incontinence, no bleeding Musculoskeletal: no neck stiffness, no neck pain, no shooting arm pain, no arm numbness/tingling, no low back pain, no shooting leg pain Integumentary: no rash, no pruritis, no redness, no sores, no wounds Neurological: no head injury, no paralysis, no parathesias, no numbness, no tingling Psychiatric: no anxiety, no change in sleep habits, no sleep disturbances, no suicidal ideation Endocrine: no cold intolerance, no heat intolerance, no polyphagia, no excessive thirst, no polydipsia Hematologic/Lymphatic: no easy bruising, no easy bleeding Allergic/Immunologic: no urticaria, no allergic rhinitis, no wheezing Exam - Constitutional Vitals: Temp Pulse Resp BP Pulse Ox 98.5 F 117 H 44 H 129/81 98 05/17/22 05:28 05/17/22 13:15 09/12/22 13:15 05/17/22 13:15 05/17/22 13:15 General appearance: Present: mild distress, obese - EENT Eyes: Present: PERRL ENT: hearing intact, clear oral mucosa - Neck Neck: Present: supple, normal ROM - Respiratory Respiratory effort: labored, accessory muscle use Respiratory: bilateral: diminished, rales - Cardiovascular Heart Sounds: Present: S1 & S2. Absent: rub, click - Extremities Extremities: pulses symmetrical Extremity abnormal: edema Peripheral Pulses: within normal limits - Abdominal General gastrointestinal: Present: soft, non-tender, non-distended, normal bowel sounds Female genitourinary: Present: normal - Integumentary Integumentary: Present: clear, warm, dry - Musculoskeletal Musculoskeletal: gait normal, strength equal bilaterally - Psychiatric Psychiatric: appropriate mood/affect, intact judgment & insight - Neurologic Neurologic: CNII-XII intact, moves all extremities HEART Score - HEART Score Troponin: Troponin T < 0.010 ng/mL (0.00-0.029) 05/17/22 06:28 Results - Labs CBC & Chem 7: 05/17/22 06:28 05/17/22 06:28 Labs: Abnormal lab results 05/17/22 05/17/22 05/17/22 Range/Units 06:28 06:28 06:28 RDW 18.1 H (13.2-15.2) % Seg Neutrophils % 72.2 H (40.0-70.0) % PT 15.3 H (12.2-14.9) Sec. Glucose 110 H (65-100) mg/dL Total Creatine Kinase 286 H (30-135) units/L NT-Pro-B Natriuret Pep (0-900) pg/mL Specific [place] (Man) (1.003-1.030) 05/17/22 05/17/22 Range/Units 06:28 09:31 RDW (13.2-15.2) % Seg Neutrophils % (40.0-70.0) % PT (12.2-14.9) Sec. Glucose (65-100) mg/dL Total Creatine Kinase (30-135) units/L NT-Pro-B Natriuret Pep 3116 H (0-900) pg/mL Specific [place] (Man) 1.001 L (1.003-1.030) Assessment and Plan - Patient Problems (1) CHF (congestive heart failure) Current Visit: Yes Status: Acute Qualifiers: Heart failure chronicity: acute on chronic Plan to address problem: Strict I's/O, monitor urine output every shift, daily weight, afterload reduction, diuretic therapy, afterload reduction, blood pressure control, supplemental oxygen, pulse oximetry, diuretic therapy, cardiology team consulted. (2) Atrial fibrillation with RVR Current Visit: Yes Status: Acute Plan to address problem: Rate control, amiodarone drip, cardiology team consulted. Further care and evaluation as per cardiology team recommendations. Continue therapeutic anticoagulation with Eliquis. (3) Obesity hypoventilation syndrome Current Visit: Yes Status: Acute Plan to address problem: Balanced diet, increase physical activity discharge, outpatient pulmonary follow-up for sleep study. (4) Hypertension Current Visit: Yes Status: Acute Qualifiers: Hypertension type: primary hypertension Qualified Code(s): I10 - Essential (primary) hypertension Plan to address problem: Monitor blood pressure every shift, continue medical management. (5) Hyperlipidemia Current Visit: Yes Status: Acute Qualifiers: Hyperlipidemia type: mixed hyperlipidemia Qualified Code(s): E78.2 - Mixed hyperlipidemia Plan to address problem: Low-cholesterol diet, statin therapy, supportive care. (6) Diabetes mellitus Current Visit: No Status: Acute Plan to address problem: Consistent carbohydrate diet, Accu-Chek, insulin protocol, hypoglycemia protocol. (7) Obesity hypoventilation syndrome Current Visit: No Status: Acute Plan to address problem: Balanced diet, increase physical activity discharge, outpatient pulmonary follow-up for sleep study. (8) Metabolic syndrome Current Visit: Yes Status: Acute Plan to address problem: Weight reduction, balanced diet, low-cholesterol diet, risk factor reduction, meal planning, blood glucose control. (9) DVT prophylaxis Current Visit: Yes Status: Acute Plan to address problem: SCDs bilateral lower extremities while in bed (10) Advance care planning Current Visit: Yes Status: Acute Plan to address problem: Disease education data, care plan discussed, diagnoses discussed, prognosis discussed, patient is full code. Patient knowledges understanding and agreement with care plan, +30 minutes. (11) Preventative health care Current Visit: Yes Status: Acute Plan to address problem: Patient counseled regarding risk factor reduction, balanced diet, increase physical activity discharge, outpatient follow-up with primary care physician for all age and risk factor appropriate screening test. +30 minutes.
[2022-05-17] MEDS ORDERED: HYDROmorphone 0.5 MG/0.5 ML INJ IV PRN (13:34)
[2022-05-17] MEDS ORDERED: ACETAMINOPHEN 325 MG TAB PO PRN (13:34)
[2022-05-17] MEDS ORDERED: ALBUTEROL 2.5 MG/3 ML NEBU IH PRN (13:34)
[2022-05-17] MEDS ORDERED: ONDANSETRON 4 MG/2 ML INJ IV PRN (13:34)
--- NOTE | 2022-05-17 13:40 | Emergency Department Report ---
ED Shortness of Breath HPI - General Chief Complaint: Dyspnea/Respdistress Stated Complaint: JAQUELIN Time Seen by Provider: 05/17/22 06:19 Source: EMS Mode of arrival: Stretcher Limitations: No Limitations - History of Present Illness Initial Comments: 56 years old with history of CHF and afib lisbeth today for difficulty breathing x 2 days, pt states she has been trying to use inhaler "but it wasn't working" EMS gave albuterol 5 mg, atrovent 2.5 mg Complaint: shortness of breath -: Gradual, days(s) Consistency: constant Improves With: oxygen, rest Worsens With: exertion Known History Of: congestive heart failure Associated Symptoms: denies other symptoms - Related Data Home Oxygen Therapy: No Home Medications Medication Instructions Recorded Confirmed Last Taken Apixaban [Eliquis] 5 mg PO Q12H 04/22/22 04/22/22 Unknown AtorvaSTATin [Lipitor] 40 mg PO QHS 04/22/22 04/22/22 Unknown Cholecalciferol Vit D3 [Vitamin D3 1,000 unit PO QDAY 04/22/22 04/22/22 Unknown 1,000 UNIT TAB] Cyanocobalamin [Vitamin B-12] 1,000 mcg PO DAILY 04/22/22 04/22/22 Unknown Cyclobenzaprine [Flexeril 10 MG 10 mg PO QHS PRN 04/22/22 04/22/22 Unknown TAB] Diclofenac 1% [Diclofenac 1% 2 gm TP QID 04/22/22 04/22/22 Unknown topical gel] Multivitamin with Minerals [Hair, 1 each PO QDAY 04/22/22 04/22/22 Unknown Skin and Nails] Naloxegol Oxalate [Movantik] 1 tab PO DAILY 04/22/22 04/22/22 Unknown Oxycodone HCl/Acetaminophen 1 each PO QDAY 04/22/22 04/22/22 Unknown [Oxycodone-Acetaminophen 10-325] Vit A/Vit C/Vit E/Zinc/Copper [Eye 1 each PO QDAY 04/22/22 04/22/22 Unknown Multivitamin Tablet] Vitamin E 1,000 unit PO QDAY 04/22/22 04/22/22 Unknown metFORMIN [Glucophage] 500 mg PO BID 04/22/22 04/22/22 Unknown Previous Rx's Medication Instructions Recorded Last Taken Type Clopidogrel [Plavix] 75 mg PO QDAY #30 tablet 02/16/22 Unknown Rx ISOSORBIDE MONOnitrate [Imdur ER] 30 mg PO QDAY #30 tablet 02/16/22 Unknown Rx lisinopriL [Zestril TAB] 5 mg PO QDAY #30 tablet 02/16/22 Unknown Rx ALBUTEROL NEB's [Proventil 0.083% 2.5 mg IH TID PRN 30 Days #90 neb 04/24/22 Unknown Rx NEBS] Albuterol Sulfate [Proair 90 mcg IH Q6H PRN 30 Days #2 each 04/24/22 Unknown Rx Respiclick] Metoprolol [Lopressor TAB] 100 mg PO BID@0800,1700 30 Days 04/24/22 Unknown Rx #60 tablet Nebulizer Accessories [Adult 1 each MC TID 30 Days #1 each 04/24/22 Unknown Rx Aerosol Mask] Nebulizer and Compressor [Easy Air 1 each MC TID 30 Days #1 each 04/24/22 Unknown Rx Compressor Nebulizer] Prednisone [predniSONE 5 mg (6-Day 5 mg PO .TAPER 6 Days #1 each 04/24/22 Unknown Rx Pack, 21 Tabs)] Allergies Allergy/AdvReac Type Severity Reaction Status Date / Time morphine Allergy Hives Verified 04/22/22 10:21 ibuprofen [From Motrin] AdvReac Anaphylaxis Verified 04/22/22 10:21 ED Review of Systems ROS: Stated complaint: JAQUELIN Other details as noted in HPI Constitutional: denies: chills, fever Eyes: denies: eye pain, eye discharge, vision change ENT: denies: ear pain, throat pain Respiratory: denies: cough, shortness of breath, wheezing Cardiovascular: denies: chest pain, palpitations Endocrine: no symptoms reported Gastrointestinal: denies: abdominal pain, nausea, diarrhea Genitourinary: denies: urgency, dysuria, discharge Musculoskeletal: denies: back pain, joint swelling, arthralgia Skin: denies: rash, lesions Neurological: denies: headache, weakness, paresthesias Psychiatric: denies: anxiety, depression Hematological/Lymphatic: denies: easy bleeding, easy bruising ED Past Medical Hx - Past Medical History Previous Medical History?: Yes Hx Heart Attack/AMI: Yes (new 2003) Hx Congestive Heart Failure: Yes Hx Diabetes: Yes Hx Arthritis: Yes (pain right knees) Hx Psychiatric Treatment: Yes (bipolar disorder) Hx Asthma: Yes Hx COPD: No Additional medical history: Atrial fibrillation - Surgical History Past Surgical History?: Yes Additional Surgical History: shoulder - Social History Smoking Status: Never Smoker - Medications Home Medications: Home Medications Medication Instructions Recorded Confirmed Last Taken Type Clopidogrel [Plavix] 75 mg PO QDAY #30 tablet 02/16/22 04/22/22 Unknown Rx ISOSORBIDE MONOnitrate [Imdur ER] 30 mg PO QDAY #30 tablet 02/16/22 04/22/22 Unknown Rx lisinopriL [Zestril TAB] 5 mg PO QDAY #30 tablet 02/16/22 04/22/22 Unknown Rx Apixaban [Eliquis] 5 mg PO Q12H 04/22/22 04/22/22 Unknown History AtorvaSTATin [Lipitor] 40 mg PO QHS 04/22/22 04/22/22 Unknown History Cholecalciferol Vit D3 [Vitamin D3 1,000 unit PO QDAY 04/22/22 04/22/22 Unknown History 1,000 UNIT TAB] Cyanocobalamin [Vitamin B-12] 1,000 mcg PO DAILY 04/22/22 04/22/22 Unknown History Cyclobenzaprine [Flexeril 10 MG 10 mg PO QHS PRN 04/22/22 04/22/22 Unknown History TAB] Diclofenac 1% [Diclofenac 1% 2 gm TP QID 04/22/22 04/22/22 Unknown History topical gel] Multivitamin with Minerals [Hair, 1 each PO QDAY 04/22/22 04/22/22 Unknown History Skin and Nails] Naloxegol Oxalate [Movantik] 1 tab PO DAILY 04/22/22 04/22/22 Unknown History Oxycodone HCl/Acetaminophen 1 each PO QDAY 04/22/22 04/22/22 Unknown History [Oxycodone-Acetaminophen 10-325] Vit A/Vit C/Vit E/Zinc/Copper [Eye 1 each PO QDAY 04/22/22 04/22/22 Unknown History Multivitamin Tablet] Vitamin E 1,000 unit PO QDAY 04/22/22 04/22/22 Unknown History metFORMIN [Glucophage] 500 mg PO BID 04/22/22 04/22/22 Unknown History ALBUTEROL NEB's [Proventil 0.083% 2.5 mg IH TID PRN 30 Days #90 neb 04/24/22 Unknown Rx NEBS] Albuterol Sulfate [Proair 90 mcg IH Q6H PRN 30 Days #2 each 04/24/22 Unknown Rx Respiclick] Metoprolol [Lopressor TAB] 100 mg PO BID@0800,1700 30 Days 04/24/22 Unknown Rx #60 tablet Nebulizer Accessories [Adult 1 each MC TID 30 Days #1 each 04/24/22 Unknown Rx Aerosol Mask] Nebulizer and Compressor [Easy Air 1 each MC TID 30 Days #1 each 04/24/22 Unknown Rx Compressor Nebulizer] Prednisone [predniSONE 5 mg (6-Day 5 mg PO .TAPER 6 Days #1 each 04/24/22 Unknown Rx Pack, 21 Tabs)] ED Physical Exam - General Limitations: No Limitations General appearance: alert, anxious, in distress - Head Head exam: Present: atraumatic, normocephalic - Eye Eye exam: Present: normal appearance - ENT ENT exam: Present: mucous membranes moist - Neck Neck exam: Present: normal inspection - Respiratory Respiratory exam: Present: rales, accessory muscle use. Absent: respiratory distress - Cardiovascular Cardiovascular Exam: Present: tachycardia, irregular rhythm. Absent: systolic murmur, diastolic murmur, rubs, gallop - GI/Abdominal GI/Abdominal exam: Present: soft, normal bowel sounds - Extremities Exam Extremities exam: Present: normal inspection - Back Exam Back exam: Present: normal inspection - Neurological Exam Neurological exam: Present: alert, oriented X3 - Psychiatric Psychiatric exam: Present: normal affect, normal mood - Skin Skin exam: Present: warm, dry, intact, normal color. Absent: rash ED Course Vital Signs 05/17/22 05/17/22 05/17/22 05:28 07:04 07:20 Temperature 98.5 F Pulse Rate 102 H 117 H Pulse Rate [ 121 H Bilateral Throughout] Respiratory 24 25 H Rate Respiratory 20 Rate [Bilateral Throughout] Blood Pressure 148/98 Blood Pressure [Left] O2 Sat by Pulse 98 Oximetry 05/17/22 05/17/22 05/17/22 07:30 07:46 08:00 Temperature Pulse Rate 122 H 116 H 120 H Pulse Rate [ Bilateral Throughout] Respiratory 24 34 H 36 H Rate Respiratory Rate [Bilateral Throughout] Blood Pressure 70/15 91/67 126/96 Blood Pressure 70/50 [Left] O2 Sat by Pulse 100 96 98 Oximetry 05/17/22 05/17/22 05/17/22 08:16 08:30 08:46 Temperature Pulse Rate 116 H 117 H 116 H Pulse Rate [ Bilateral Throughout] Respiratory 41 H 28 H 33 H Rate Respiratory Rate [Bilateral Throughout] Blood Pressure 128/91 135/108 121/104 Blood Pressure [Left] O2 Sat by Pulse 95 97 94 Oximetry 05/17/22 05/17/22 05/17/22 09:00 09:16 09:30 Temperature Pulse Rate 116 H 111 H 125 H Pulse Rate [ Bilateral Throughout] Respiratory 27 H 30 H 26 H Rate Respiratory Rate [Bilateral Throughout] Blood Pressure 128/105 138/109 140/104 Blood Pressure [Left] O2 Sat by Pulse 98 97 Oximetry 05/17/22 05/17/22 05/17/22 09:31 09:46 10:00 Temperature Pulse Rate 117 H 117 H Pulse Rate [ Bilateral Throughout] Respiratory 17 26 H 39 H Rate Respiratory Rate [Bilateral Throughout] Blood Pressure 120/96 120/96 Blood Pressure [Left] O2 Sat by Pulse 97 96 96 Oximetry 05/17/22 05/17/22 05/17/22 10:16 10:30 10:46 Temperature Pulse Rate 124 H 124 H 121 H Pulse Rate [ Bilateral Throughout] Respiratory 23 29 H 29 H Rate Respiratory Rate [Bilateral Throughout] Blood Pressure 117/95 121/105 109/85 Blood Pressure [Left] O2 Sat by Pulse 96 96 92 Oximetry 05/17/22 05/17/22 05/17/22 11:00 11:16 11:31 Temperature Pulse Rate 117 H 118 H 116 H Pulse Rate [ Bilateral Throughout] Respiratory 37 H 33 H 25 H Rate Respiratory Rate [Bilateral Throughout] Blood Pressure 98/75 98/75 98/75 Blood Pressure [Left] O2 Sat by Pulse 97 95 92 Oximetry 05/17/22 05/17/22 05/17/22 11:45 12:31 12:45 Temperature Pulse Rate 116 H 109 H 110 H Pulse Rate [ Bilateral Throughout] Respiratory 33 H 29 H 36 H Rate Respiratory Rate [Bilateral Throughout] Blood Pressure 141/101 113/87 129/81 Blood Pressure [Left] O2 Sat by Pulse 97 87 Oximetry 05/17/22 05/17/22 13:01 13:15 Temperature Pulse Rate 113 H 117 H Pulse Rate [ Bilateral Throughout] Respiratory 25 H 44 H Rate Respiratory Rate [Bilateral Throughout] Blood Pressure 129/81 129/81 Blood Pressure [Left] O2 Sat by Pulse 90 98 Oximetry ED Medical Decision Making - Lab Data Result diagrams: 05/17/22 06:28 05/17/22 06:28 - EKG Data -: EKG Interpreted by Me - EKG Data Interpretation: other (atrial flutter rvr ) - Radiology Data Radiology results: report reviewed, image reviewed - Medical Decision Making work up shwoed afib rvr , Low BP noted intially started on amidarone and BP normalised, started on cadraizem drip lasix and rt given will admit for afib rvr Critical care attestation.: If time is entered above; I have spent that time in minutes in the direct care of this critically ill patient, excluding procedure time. ED Disposition Clinical Impression: Acute diastolic (congestive) heart failure, CHF (congestive heart failure), SOB (shortness of breath) Disposition: ADMITTED INPATIENT Is pt being admited?: Yes Does the pt Need Aspirin: No Condition: Stable Referrals: PRIMARY CARE, [Primary Care Provider] - 3-5 Days
[2022-05-17] MEDS ORDERED: NON-FORMULARY EACH (Apixaban 5 MG Tablet) PO SCH (13:45)
[2022-05-17] MEDS: APIXABAN 5 MG TAB PO SCH (14:47)
[2022-05-17] MEDS: METOPROLOL TARTRATE 100 MG TAB PO SCH (19:26)
[2022-05-17] MEDS: FUROSEMIDE 20 MG/2 ML INJ IV SCH (19:27)
[2022-05-17] MEDS ORDERED: ALPRAZolam 0.25 MG TAB PO ONE (22:30)
[2022-05-18] MEDS ORDERED: DEXTROSE 50% IN WATER (25GM) 50 ML SYRINGE IV ONE (00:30)
--- NOTE | 2022-05-18 00:57 | Event Note ---
Date: 05/18/22 Code med called on 57-year-old -[place] female who has been admitted with CHF exacerbation. She appeared agitated. She is also a known diabetic. Blood sugar check was about 20 Patient given orange juice and IV dextrose. We will continue to monitor blood glucose closely. All other vitals remained stable.
[2022-05-18] MEDS ORDERED: DEXTROSE 50% IN WATER (25GM) 50 ML SYRINGE IV PRN (01:00)
[2022-05-18] MEDS: APIXABAN 5 MG TAB PO SCH ×3 (01:56→22:20)
[2022-05-18] MEDS: CYCLOBENZAPRINE 10 MG TAB PO PRN ×2 (05:36→22:20)
[2022-05-18] MEDS: FUROSEMIDE 20 MG/2 ML INJ IV SCH ×3 (05:38→22:41)
[2022-05-18 05:39] LABS: Mean Corpuscular HGB Conc 30 % (30-34); Mean Corpuscular Volume 92 fl (79-97); Platelet Count 203 K/mm3 (140-440); Red Blood Count 5.07 M/mm3 (3.65-5.03); Red Cell Distribution Width 18.4 % (13.2-15.2)
[2022-05-18 05:43] LABS: Hematocrit 46.5 % (30.3-42.9); Hemoglobin 14.1 gm/dl (10.1-14.3)
[2022-05-18 05:49] LABS: INR 3.06 (0.87-1.13); Partial Thromboplastin Time 42.2 Sec. (24.2-36.6)
[2022-05-18 06:01] LABS: Calcium 8.8 mg/dL (8.4-10.2)
[2022-05-18] MEDS ORDERED: SODIUM POLYSTYRENE 15 GM/60 ML ORAL LIQD PO ONE (06:36)
[2022-05-18] MEDS ORDERED: INSULIN REGULAR, HUMAN 100 UNITS/1 ML SUB-Q ONE (06:41)
[2022-05-18] MEDS: METOPROLOL TARTRATE 100 MG TAB PO SCH ×2 (08:49→22:31)
[2022-05-18] MEDS ORDERED: LISINOPRIL 5 MG TAB PO SCH (10:00)
[2022-05-18] MEDS ORDERED: VIT C PO SCH (10:00)
[2022-05-18] MEDS ORDERED: VIT A PO SCH (10:00)
[2022-05-18] MEDS ORDERED: VIT E PO SCH (10:00)
[2022-05-18] MEDS ORDERED: NON-FORMULARY EACH (Multivitamin With Minerals [Hair, Skin And Nails] 1 EACH Tablet) PO SCH (10:00)
[2022-05-18] MEDS ORDERED: NON-FORMULARY EACH (Vitamin E [Vitamin E] 1,000 UNIT Capsule) PO SCH (10:00)
[2022-05-18] MEDS ORDERED: NALOXEGOL OXALATE 25 MG PO SCH (10:00)
[2022-05-18] MEDS ORDERED: ZINC PO SCH (10:00)
[2022-05-18] MEDS ORDERED: [UNRECOGNIZED DRUG - OTHER] PO SCH (10:00)
[2022-05-18] MEDS ORDERED: MULTIVITAMINS,THER W-MINERALS TAB PO SCH (10:00)
[2022-05-18] MEDS ORDERED: COPPER PO SCH (10:00)
[2022-05-18] MEDS: CLOPIDOGREL 75 MG TAB PO SCH (11:29)
[2022-05-18] MEDS: TOCOPHEROL 200 UNIT CAP PO SCH (11:29)
[2022-05-18] MEDS: MULTIVITAMINS,THER W-MINERALS TAB PO SCH (11:29)
[2022-05-18] MEDS: CHOLECALCIFEROL (VIT D3) 1000 UNIT (25 mcg) TAB PO SCH (11:30)
[2022-05-18] MEDS: CYANOCOBALAMIN (VIT B-12) 1000 MCG TAB PO SCH (11:30)
[2022-05-18] MEDS ORDERED: CALCIUM GLUCONATE 1,000 MG in SODIUM CHLORIDE 0.9% 100 ML IV ONE (12:06)
[2022-05-18] MEDS ORDERED: methylPREDNISolone Sod Succinate 40 MG/1 ML INJ IV SCH (13:00)
[2022-05-18] MEDS ORDERED: CALC GLUCONATE 1GM/NS 100 ML 1 GM/100 ML BAG IV ONE (13:00)
[2022-05-18] MEDS ORDERED: FUROSEMIDE 40 MG/4 ML INJ IV SCH (13:00)
--- NOTE | 2022-05-18 13:41 | Consultation ---
History of Present Illness Consult date: 05/18/22 Consult reason: atrial fibrillation History of present illness: The patient is a 57-year-old woman with a recent, extensive cardiac history. 3 months ago, she was admitted to this hospital with acute coronary syndrome, EKG showed acute inferolateral injury pattern, she was taken emergently to the cardiac catheterization laboratory. My review of the angiograms showed essentially patent coronary arteries with no fixed obstruction, but slow flow in the left coronary vessels, the LAD and dominant circumflex. The left ventriculo gram appeared consistent with acute Takotsubo event. She was discharged on medical management including dual oral antiplatelet therapy, but following that, there have been several admissions, at this time with symptomatic rapid atrial flutter and fibrillation. She is on rhythm control therapy amiodarone, and Eliquis for oral anticoagulation. She follows up with Dr. Slaughter the usability architect in the outpatient setting. Patient is admitted to the hospital at this time with acute chest pain, palpitations and shortness of breath. EKG in the emergency room was atrial flutter with 2 1 AV conduction, ventricular rate 120. Since her admission, she has reverted back to sinus rhythm on medical therapy, and now feels much better with no cardiac symptoms. Today, she is stable sinus rhythm at 72. Past History Past Medical History: atrial fib, diabetes, heart failure, hyperlipidemia, other (Takotsubo event February 2022) Past Surgical History: Other (Shoulder surgery) Social history: single. denies: smoking, alcohol abuse, prescription drug abuse Family history: diabetes, hypertension Medications and Allergies Allergies Allergy/AdvReac Type Severity Reaction Status Date / Time morphine Allergy Hives Verified 05/18/22 13:23 ibuprofen [From Motrin] AdvReac Anaphylaxis Verified 05/18/22 13:23 Home Medications Medication Instructions Recorded Confirmed Last Taken Type Clopidogrel [Plavix] 75 mg PO QDAY #30 tablet 02/16/22 04/22/22 Unknown Rx ISOSORBIDE MONOnitrate [Imdur ER] 30 mg PO QDAY #30 tablet 02/16/22 04/22/22 Unknown Rx lisinopriL [Zestril TAB] 5 mg PO QDAY #30 tablet 02/16/22 04/22/22 Unknown Rx Apixaban [Eliquis] 5 mg PO Q12H 04/22/22 04/22/22 Unknown History AtorvaSTATin [Lipitor] 40 mg PO QHS 04/22/22 04/22/22 Unknown History Cholecalciferol Vit D3 [Vitamin D3 1,000 unit PO QDAY 04/22/22 04/22/22 Unknown History 1,000 UNIT TAB] Cyanocobalamin [Vitamin B-12] 1,000 mcg PO DAILY 04/22/22 04/22/22 Unknown History Cyclobenzaprine [Flexeril 10 MG 10 mg PO QHS PRN 04/22/22 04/22/22 Unknown History TAB] Diclofenac 1% [Diclofenac 1% 2 gm TP QID 04/22/22 04/22/22 Unknown History topical gel] Multivitamin with Minerals [Hair, 1 each PO QDAY 04/22/22 04/22/22 Unknown History Skin and Nails] Naloxegol Oxalate [Movantik] 1 tab PO DAILY 04/22/22 04/22/22 Unknown History Oxycodone HCl/Acetaminophen 1 each PO QDAY 04/22/22 04/22/22 Unknown History [Oxycodone-Acetaminophen 10-325] Vit A/Vit C/Vit E/Zinc/Copper [Eye 1 each PO QDAY 04/22/22 04/22/22 Unknown History Multivitamin Tablet] Vitamin E 1,000 unit PO QDAY 04/22/22 04/22/22 Unknown History metFORMIN [Glucophage] 500 mg PO BID 04/22/22 04/22/22 Unknown History ALBUTEROL NEB's [Proventil 0.083% 2.5 mg IH TID PRN 30 Days #90 neb 04/24/22 Unknown Rx NEBS] Albuterol Sulfate [Proair 90 mcg IH Q6H PRN 30 Days #2 each 04/24/22 Unknown Rx Respiclick] Metoprolol [Lopressor TAB] 100 mg PO BID@0800,1700 30 Days 04/24/22 Unknown Rx #60 tablet Nebulizer Accessories [Adult 1 each MC TID 30 Days #1 each 04/24/22 Unknown Rx Aerosol Mask] Nebulizer and Compressor [Easy Air 1 each MC TID 30 Days #1 each 04/24/22 Unknown Rx Compressor Nebulizer] Prednisone [predniSONE 5 mg (6-Day 5 mg PO .TAPER 6 Days #1 each 04/24/22 Unknown Rx Pack, 21 Tabs)] Active Meds: Active Medications Acetaminophen (Acetaminophen 325 Mg Tab) 650 mg PO Q4H PRN PRN Reason: Pain MILD(1-3)/Fever >100.5/[place] Albuterol (Albuterol 2.5 Mg/3 Ml Nebu) 2.5 mg IH Q4HRT PRN PRN Reason: Shortness Of Breath Last Admin: 05/17/22 21:20 Dose: 2.5 mg Albuterol/Ipratropium (Ipratropium/Albuterol Sulfate 3 Ml Ampul.Neb) 1 ampul IH Q6HRT [facility] Apixaban (Apixaban 5 Mg Tab) 5 mg PO Q12HR [facility]; Protocol Last Admin: 05/18/22 11:29 Dose: 5 mg Atorvastatin Calcium (Atorvastatin 40 Mg Tab) 40 mg PO QHS [facility] Last Admin: 05/17/22 21:44 Dose: 40 mg Cholecalciferol (Cholecalciferol (Vit D3) 1000 Unit (25 Mcg) Tab) 1,000 unit PO QDAY [facility] Last Admin: 05/18/22 11:30 Dose: 1,000 unit Clopidogrel Bisulfate (Clopidogrel 75 Mg Tab) 75 mg PO QDAY [facility] Last Admin: 05/18/22 11:29 Dose: 75 mg Cyanocobalamin (Cyanocobalamin (Vit B-12) 1000 Mcg Tab) 1,000 mcg PO DAILY [facility] Last Admin: 05/18/22 11:30 Dose: 1,000 mcg Cyclobenzaprine HCl (Cyclobenzaprine 10 Mg Tab) 10 mg PO QHS PRN PRN Reason: Muscle Spasm Last Admin: 05/18/22 05:36 Dose: 10 mg Dextrose (Dextrose 50% In Water (25gm) 50 Ml Syringe) 50 ml IV Q30MIN PRN; Protocol PRN Reason: Hypoglycemia Last Admin: 05/18/22 07:34 Dose: 50 ml Furosemide (Furosemide 20 Mg/2 Ml Inj) 20 mg IV BID@0600,1800 [facility] Last Admin: 05/18/22 11:30 Dose: 20 mg Furosemide (Furosemide 40 Mg/4 Ml Inj) 40 mg IV ONCE@1300 [facility] Stop: 05/18/22 17:00 Hydromorphone HCl (Hydromorphone 0.5 Mg/0.5 Ml Inj) 0.5 mg IV Q23H PRN PRN Reason: Pain , Severe (7-10) Last Admin: 05/17/22 19:35 Dose: 0.5 mg Isosorbide Mononitrate (Isosorbide Mononitrate Er 30 Mg Tab) 30 mg PO QDAY [facility] Last Admin: 05/18/22 11:30 Dose: 30 mg Methylprednisolone Sodium Succinate (Methylprednisolone Sod Succinate 40 Mg/1 Ml Inj) 40 mg IV ONCE@1300 [facility] Stop: 05/18/22 17:00 Methylprednisolone Sodium Succinate (Methylprednisolone Sod Succinate 40 Mg/1 Ml Inj) 40 mg IV Q8HR [facility] Metoprolol Tartrate (Metoprolol Tartrate 100 Mg Tab) 100 mg PO BID@0800,1700 [facility] Last Admin: 05/18/22 08:49 Dose: Not Given Miscellaneous Medication (Naloxegol Oxalate [Movantik]) 1 tab PO DAILY [facility] Multivitamins/Minerals (Multivitamins,Ther W-Minerals Tab) 1 each PO QDAY [facility] Last Admin: 05/18/22 11:29 Dose: 1 each Ondansetron HCl (Ondansetron 4 Mg/2 Ml Inj) 4 mg IV Q8H PRN PRN Reason: Nausea And Vomiting Oxycodone/Acetaminophen (Oxycodone /Acetaminophen 5-325mg Tab) 1 tab PO Q16H PRN PRN Reason: Pain, Moderate (4-6) Sodium Chloride (Sodium Chloride 0.9% 10 Ml Flush Syringe) 10 ml IV BID [facility] Last Admin: 05/18/22 11:31 Dose: 10 ml Sodium Chloride (Sodium Chloride 0.9% 10 Ml Flush Syringe) 10 ml IV PRN PRN PRN Reason: LINE FLUSH Vitamin E (Tocopherol 200 Unit Cap) 1,000 unit PO QDAY [facility] Last Admin: 05/18/22 11:29 Dose: 1,000 unit Review of Systems Cardiovascular: chest pain, palpitations, rapid/irregular heart beat, shortness of breath, no orthopnea, no edema, no syncope, no lightheadedness Physical Examination Vital Signs Temp Pulse Resp BP Pulse Ox 98.5 F 102 H 24 148/98 98 05/17/22 05:28 05/17/22 05:28 05/17/22 05:28 05/17/22 05:28 05/17/22 05:28 General appearance: no acute distress HEENT: Positive: PERRL Neck: Positive: neck supple Cardiac: Positive: Reg Rate and Rhythm Lungs: Positive: Decreased Breath Sounds Neuro: Positive: Grossly Intact Abdomen: Positive: Soft Female genitourinary: deferred Skin: Positive: Clear Extremities: Absent: edema Results 05/18/22 05:20 05/18/22 05:20 Coagulation 05/18/22 Range/Units 05:20 PT 36.5 H (12.2-14.9) Sec. INR 3.06 H (0.87-1.13) APTT 42.2 H (24.2-36.6) Sec. CBC 05/18/22 Range/Units 05:20 WBC 18.9 H (4.5-11.0) K/mm3 RBC 5.07 H (3.65-5.03) M/mm3 Hgb 14.1 (10.1-14.3) gm/dl Hct 46.5 H (30.3-42.9) % Plt Count 203 (140-440) K/mm3 Comprehensive Metabolic Panel 05/18/22 Range/Units 05:20 Sodium 136 L (137-145) mmol/L Potassium 6.6 H* D (3.6-5.0) mmol/L Chloride 94.8 L (98-107) mmol/L Carbon Dioxide 17 L D (22-30) mmol/L BUN 17 (7-17) mg/dL Creatinine 1.7 H D (0.6-1.2) mg/dL Glucose 112 H (65-100) mg/dL Calcium 8.8 (8.4-10.2) mg/dL EKG interpretations - Telemetry EKG Rhythm: Atrial Flutter (With 2-1 AV conduction, ventricular rate 121) Assessment and Plan - Patient Problems (1) Paroxysmal atrial flutter Current Visit: Yes Status: Acute Plan to address problem: Patient presents with another episode of recurrent, symptomatic atrial flutter fibrillation. Symptoms has resolved since she has reverted back to a stable sinus rhythm. We will continue her rhythm control therapy with amiodarone, and oral anticoagulation with Eliquis. Otherwise, patient is stable for follow-up with her primary usability architect Dr. Slaughter. (2) Takotsubo syndrome Current Visit: No Status: Acute Plan to address problem: Patient presented in February 2022 with acute coronary syndrome, inferolateral ST elevation on the ECG, cardiac catheterization on review showed no fixed coronary lesions, slow flow down the left coronary system, and an LV gram consistent with Takotsubo syndrome. Patient is doing well on medical therapy, LV ejection fraction was 45 to 50%, and should be followed in the outpatient setting on optimal medical therapy.
[2022-05-18] MEDS: IPRATROPIUM/ALBUTEROL SULFATE 3 ML AMPUL.NEB IH SCH ×2 (14:46→22:19)
--- NOTE | 2022-05-18 14:56 | Progress Note ---
Assessment and Plan --Acute hypoxic respiratory failure Likely due to underlying asthma exacerbation and CHF exacerbation Placed on schedule Solu-Medrol, nebulizer breathing treatment and IV diuresis Wean off O2 as tolerated, -- Acute on chronic systolic CHF (congestive heart failure) EF 45 to 50% -- h/o Takotsubo syndrome Strict I's/O, monitor urine output every shift, daily weight, afterload reduction, diuretic therapy, afterload reduction, blood pressure control, supplemental oxygen, pulse oximetry, diuretic therapy, cardiology team consulted. -- Atrial fibrillation with RVR Rate control, amiodarone drip, cardiology team consulted. Further care and evaluation as per cardiology team recommendations. Continue therapeutic anticoagulation with Eliquis. -- Obesity hypoventilation syndrome Balanced diet, increase physical activity discharge, outpatient pulmonary follow-up for sleep study. -- Hypertension Monitor blood pressure every shift, continue medical management. -- Hyperlipidemia Low-cholesterol diet, statin therapy, supportive care. --Hyperkalemia, likely due to declining renal function, repeat BMP --Diabetes mellitus Consistent carbohydrate diet, Accu-Chek, insulin protocol, hypoglycemia protoco l. Hold metformin in the setting of DANIEL --DANIEL, likely cardiorenal syndrome Diabetes carefully, monitor renal function If continue to get worse need to nephrology consult -- DVT prophylaxis SCDs bilateral lower extremities while in bed -- Advance care planning Disease education data, care plan discussed, diagnoses discussed, prognosis discussed, patient is full code. Patient knowledges understanding and agreement with care plan, +30 minutes. -- Preventative health care Patient counseled regarding risk factor reduction, balanced diet, increase physical activity discharge, outpatient follow-up with primary care physician for all age and risk factor appropriate screening test. +30 minutes. Daily clinical course: 05/18/22: Continue diuresis, monitor renal function, add Solu-Medrol 40 mg Q8 8 hours, add scheduled breathing treatment. Monitor BMP Subjective Date of service: 05/18/22 Interval history: Patient seen and examined. Medical records and medication list reviewed. No acute event overnight noted by the RN. Patient appears distressed with shortness of breath, on nasal cannula O2 Discussed plan of care at bedside with patient's RN. Objective - Exam Narrative Exam: GENERAL: well-developed and well-nourished white female lying on bed appeared to be in distress HEENT: Normocephalic. Atraumatic. No conjunctival congestion or icterus. Patient has moist mucous membranes. NECK: Supple. Trachea midline. CHEST/LUNGS: Diffuse wheezing auscultated bilaterally, breathing with nasal cannula O2 HEART/CARDIOVASCULAR: Regular in rate and rhythm. S1 and S2 positive. ABDOMEN: Abdomen is soft, nontender. Patient has normal bowel sounds. SKIN: There is no rash. Warm and dry. NEURO: No focal motor deficit. Follows command. MUSCULOSKELETAL: No joint effusion or tenderness. EXTRIMITY: No edema, no cyanosis or clubbing. PSYCH: Anxious. - Constitutional Vitals: Vital Signs - 12hr 05/18/22 05/18/22 05/18/22 03:05 04:25 08:25 Temperature 97.1 F L Pulse Rate 68 64 Pulse Rate [ Bilateral Throughout] Respiratory 24 Rate Respiratory Rate [Bilateral Throughout] Blood Pressure 98/74 O2 Sat by Pulse 90 95 Oximetry 05/18/22 05/18/22 05/18/22 08:26 08:41 08:49 Temperature 97.8 F Pulse Rate 64 Pulse Rate [ Bilateral Throughout] Respiratory 20 Rate Respiratory Rate [Bilateral Throughout] Blood Pressure 97/69 97/69 O2 Sat by Pulse 100 90 Oximetry 05/18/22 05/18/22 09:05 14:46 Temperature Pulse Rate 60 Pulse Rate [ 90 Bilateral Throughout] Respiratory Rate Respiratory 22 Rate [Bilateral Throughout] Blood Pressure O2 Sat by Pulse Oximetry - Labs CBC & Chem 7: 05/19/22 06:33 05/20/22 05:11 Labs: Abnormal lab results 05/17/22 05/18/22 05/18/22 Range/Units 20:45 00:28 05:20 WBC 18.9 H (4.5-11.0) K/mm3 RBC 5.07 H (3.65-5.03) M/mm3 Hct 46.5 H (30.3-42.9) % RDW 18.4 H (13.2-15.2) % PT (12.2-14.9) Sec. INR (0.87-1.13) APTT (24.2-36.6) Sec. Sodium (137-145) mmol/L Potassium (3.6-5.0) mmol/L Chloride (98-107) mmol/L Carbon Dioxide (22-30) mmol/L Creatinine (0.6-1.2) mg/dL Glucose (65-100) mg/dL POC Glucose 129 H 20 L (70-105) mg/dL 05/18/22 05/18/22 05/18/22 Range/Units 05:20 05:20 08:21 WBC (4.5-11.0) K/mm3 RBC (3.65-5.03) M/mm3 Hct (30.3-42.9) % RDW (13.2-15.2) % PT 36.5 H (12.2-14.9) Sec. INR 3.06 H (0.87-1.13) APTT 42.2 H (24.2-36.6) Sec. Sodium 136 L (137-145) mmol/L Potassium 6.6 H* D (3.6-5.0) mmol/L Chloride 94.8 L (98-107) mmol/L Carbon Dioxide 17 L D (22-30) mmol/L Creatinine 1.7 H D (0.6-1.2) mg/dL Glucose 112 H (65-100) mg/dL POC Glucose 173 H (70-105) mg/dL 05/18/22 Range/Units 11:27 WBC (4.5-11.0) K/mm3 RBC (3.65-5.03) M/mm3 Hct (30.3-42.9) % RDW (13.2-15.2) % PT (12.2-14.9) Sec. INR (0.87-1.13) APTT (24.2-36.6) Sec. Sodium (137-145) mmol/L Potassium (3.6-5.0) mmol/L Chloride (98-107) mmol/L Carbon Dioxide (22-30) mmol/L Creatinine (0.6-1.2) mg/dL Glucose (65-100) mg/dL POC Glucose 198 H (70-105) mg/dL HEART Score - HEART Score Troponin: Troponin T < 0.010 ng/mL (0.00-0.029) 05/17/22 06:28
[2022-05-18] MEDS: oxyCODONE /ACETAMINOPHEN 5-325MG TAB PO PRN (15:12)
[2022-05-18] MEDS: methylPREDNISolone Sod Succinate 40 MG/1 ML INJ IV SCH (22:20)
[2022-05-18] MEDS: INSULIN LISPRO 100 UNIT/ML SUB-Q SCH (23:58)
[2022-05-19] MEDS: IPRATROPIUM/ALBUTEROL SULFATE 3 ML AMPUL.NEB IH SCH ×4 (02:19→21:30)
[2022-05-19] MEDS: FUROSEMIDE 20 MG/2 ML INJ IV SCH ×2 (05:55→17:55)
[2022-05-19] MEDS: methylPREDNISolone Sod Succinate 40 MG/1 ML INJ IV SCH ×3 (05:57→21:45)
[2022-05-19 06:58] LABS: Hematocrit 40.3 % (30.3-42.9); Hemoglobin 12.5 gm/dl (10.1-14.3); Mean Corpuscular HGB Conc 31 % (30-34); Mean Corpuscular Volume 90 fl (79-97); Platelet Count 142 K/mm3 (140-440); Red Blood Count 4.49 M/mm3 (3.65-5.03); Red Cell Distribution Width 18.2 % (13.2-15.2)
[2022-05-19] MEDS: oxyCODONE /ACETAMINOPHEN 5-325MG TAB PO PRN ×2 (08:19→21:43)
--- NOTE | 2022-05-19 09:37 | Electrocardiograph Report ---
[facility] Test Date: 2022-05-17 Test Time: 05:40:13 Pat Name: LIBRADO ENRIQUEZ Department: Room: A479 Gender: F Manager Switch: FILIBERTO : 1965 Requested By: LEOBARDO HOUSE Order Number: [id number] Reading MD: Dennis Ramos Measurements Intervals [place] Rate: 121 P: CO: QRS: -55 QRSD: 100 T: -54 QT: 382 QTc: 544 Interpretive Statements Atrial flutter with predominant 2:1 AV block Inferior infarct, age indeterminate nonspecific st-t Compared to ECG 04/21/2022 13:35:33 2:1 AV block now present Myocardial infarct finding now present Prolonged QT interval now present Atrial fibrillation no longer present Ventricular premature complex(es) no longer present Poor R-wave progression no longer present Electronically Signed On 05-19-2022 9:36:35 EDT by Dennis Ramos
[2022-05-19] MEDS: CLOPIDOGREL 75 MG TAB PO SCH (10:57)
[2022-05-19] MEDS: CHOLECALCIFEROL (VIT D3) 1000 UNIT (25 mcg) TAB PO SCH (10:57)
[2022-05-19] MEDS: TOCOPHEROL 200 UNIT CAP PO SCH (10:57)
[2022-05-19] MEDS: METOPROLOL TARTRATE 100 MG TAB PO SCH ×2 (10:57→17:55)
[2022-05-19] MEDS: MULTIVITAMINS,THER W-MINERALS TAB PO SCH (10:58)
[2022-05-19] MEDS: INSULIN LISPRO 100 UNIT/ML SUB-Q SCH ×4 (10:58→23:18)
[2022-05-19] MEDS: APIXABAN 5 MG TAB PO SCH ×2 (10:58→21:43)
[2022-05-19] MEDS: CYANOCOBALAMIN (VIT B-12) 1000 MCG TAB PO SCH (10:59)
--- NOTE | 2022-05-19 14:34 | Progress Note ---
Assessment and Plan - Patient Problems (1) Paroxysmal atrial flutter Current Visit: Yes Status: Acute Plan to address problem: Patient presents with another episode of recurrent, symptomatic atrial flutter fibrillation. Symptoms has resolved since she has reverted back to a stable sinus rhythm. We will continue her rhythm control therapy with amiodarone, and oral anticoagulation with Eliquis. Otherwise, patient is stable for follow-up with her primary rock singer Dr. Slaughter. (2) Takotsubo syndrome Current Visit: No Status: Acute Plan to address problem: Patient presented in February 2022 with acute coronary syndrome, inferolateral ST elevation on the ECG, cardiac catheterization on review showed no fixed coronary lesions, slow flow down the left coronary system, and an LV gram consistent with Takotsubo syndrome. Patient is doing well on medical therapy, LV ejection fraction was 45 to 50%, and should be followed in the outpatient setting on optimal medical therapy. Subjective Date of service: 05/19/22 Principal diagnosis: Atrial fibrillation and flutter Interval history: Patient has no new cardiac complaints, her chest pain, shortness of breath and palpitations have resolved since she reverted to a stable sinus rhythm. Objective Vital Signs Temp Pulse Pulse Resp Resp BP Pulse Ox 05/19/22 10:00 95 05/19/22 08:29 98.2 F 18 123/85 05/19/22 08:00 69 17 05/19/22 04:36 98.4 F 72 19 120/71 96 05/19/22 01:43 28 H 97 05/19/22 00:33 97.9 F 83 18 122/92 95 05/18/22 22:00 95 05/18/22 20:16 98.1 F 85 20 125/83 97 05/18/22 17:00 67 05/18/22 16:00 28 H 97 05/18/22 15:33 98.1 F 79 20 103/76 100 05/18/22 15:12 24 05/18/22 14:46 90 22 - Physical Examination General: No Apparent Distress HEENT: Positive: PERRL Neck: Positive: neck supple Cardiac: Positive: Reg Rate and Rhythm Lungs: Positive: Decreased Breath Sounds Neuro: Positive: Grossly Intact Abdomen: Positive: Soft Skin: Positive: Clear Extremities: Absent: edema - Labs and Meds CBC 05/19/22 Range/Units 06:33 WBC 17.1 H (4.5-11.0) K/mm3 RBC 4.49 (3.65-5.03) M/mm3 Hgb 12.5 (10.1-14.3) gm/dl Hct 40.3 D (30.3-42.9) % Plt Count 142 (140-440) K/mm3 Comprehensive Metabolic Panel 05/18/22 Range/Units 22:13 Potassium 4.4 D (3.6-5.0) mmol/L
--- NOTE | 2022-05-19 14:56 | Progress Note ---
Assessment and Plan --Acute hypoxic respiratory failure Likely due to underlying asthma exacerbation and CHF exacerbation Placed on schedule Solu-Medrol, nebulizer breathing treatment and IV diuresis Wean off O2 as tolerated, -- Acute on chronic systolic CHF (congestive heart failure) EF 45 to 50% -- h/o Takotsubo syndrome Strict I's/O, monitor urine output every shift, daily weight, afterload reduction, diuretic therapy, afterload reduction, blood pressure control, supplemental oxygen, pulse oximetry, diuretic therapy, cardiology team consulted. --Leukocytosis, likely stress-induced and due to steroid Follow clinically, patient without any fever , CXR w/o infiltrates -- Atrial fibrillation with RVR Rate control, amiodarone drip, cardiology team consulted. Further care and evaluation as per cardiology team recommendations. Continue therapeutic anticoagulation with Eliquis. -- Obesity hypoventilation syndrome Balanced diet, increase physical activity discharge, outpatient pulmonary follow-up for sleep study. -- Hypertension Monitor blood pressure every shift, continue medical management. -- Hyperlipidemia Low-cholesterol diet, statin therapy, supportive care. --Hyperkalemia, likely due to declining renal function, repeat BMP --Diabetes mellitus Consistent carbohydrate diet, Accu-Chek, insulin protocol, hypoglycemia protocol. Hold metformin in the setting of DANIEL --DANIEL, likely cardiorenal syndrome Diabetes carefully, monitor renal function If continue to get worse need to nephrology consult -- DVT prophylaxis SCDs bilateral lower extremities while in bed -- Advance care planning Disease education data, care plan discussed, diagnoses discussed, prognosis discussed, patient is full code. Patient knowledges understanding and agreement with care plan, +30 minutes. -- Preventative health care Patient counseled regarding risk factor reduction, balanced diet, increase physical activity discharge, outpatient follow-up with primary care physician for all age and risk factor appropriate screening test. +30 minutes. Daily clinical course: 05/18/22: Continue diuresis, monitor renal function, add Solu-Medrol 40 mg Q8 8 hours, add scheduled breathing treatment. Monitor BMP 05/19/22: Creatinine 1.4 today, continue gentle diuresis, continue to monitor renal function. Respiratory status slightly improved. Still has significant wheezing. Continue scheduled nebulizer breathing treatment and empiric steroid. Subjective Date of service: 05/19/22 Principal diagnosis: Atrial fibrillation and flutter Interval history: Patient seen and examined. Medical records and medication list reviewed. No acute event overnight noted by the RN. Patient on 3 L nasal cannula O2 but still have significant wheezing and short of breath Discussed plan of care at bedside with patient's RN. Objective - Exam Narrative Exam: GENERAL: well-developed and well-nourished white female lying on bed appeared to be in distress HEENT: Normocephalic. Atraumatic. No conjunctival congestion or icterus. Patient has moist mucous membranes. NECK: Supple. Trachea midline. CHEST/LUNGS: Diffuse wheezing auscultated bilaterally, breathing with nasal cannula O2 HEART/CARDIOVASCULAR: Regular in rate and rhythm. S1 and S2 positive. ABDOMEN: Abdomen is soft, nontender. Patient has normal bowel sounds. SKIN: There is no rash. Warm and dry. NEURO: No focal motor deficit. Follows command. MUSCULOSKELETAL: No joint effusion or tenderness. EXTRIMITY: No edema, no cyanosis or clubbing. PSYCH: Anxious. - Constitutional Vitals: Vital Signs - 12hr 05/19/22 05/19/22 05/19/22 04:36 08:00 08:29 Temperature 98.4 F 98.2 F Pulse Rate 72 Pulse Rate [ 69 Bilateral Throughout] Respiratory 19 18 Rate Respiratory 17 Rate [Bilateral Throughout] Blood Pressure 120/71 123/85 O2 Sat by Pulse 96 Oximetry 05/19/22 05/19/22 10:00 14:00 Temperature Pulse Rate Pulse Rate [ 63 Bilateral Throughout] Respiratory Rate Respiratory 18 Rate [Bilateral Throughout] Blood Pressure O2 Sat by Pulse 95 Oximetry - Labs CBC & Chem 7: 05/19/22 06:33 05/20/22 05:11 Labs: Abnormal lab results 05/18/22 05/18/22 05/19/22 Range/Units 16:09 20:16 06:33 WBC 17.1 H (4.5-11.0) K/mm3 RDW 18.2 H (13.2-15.2) % POC Glucose 177 H 200 H (70-105) mg/dL 05/19/22 05/19/22 Range/Units 08:29 13:12 WBC (4.5-11.0) K/mm3 RDW (13.2-15.2) % POC Glucose 319 H 190 H (70-105) mg/dL HEART Score - HEART Score Troponin: Troponin T < 0.010 ng/mL (0.00-0.029) 05/17/22 06:28
[2022-05-19] MEDS ORDERED: INSULIN LISPRO 100 UNIT/ML SUB-Q SCH (22:00)
[2022-05-20] MEDS: IPRATROPIUM/ALBUTEROL SULFATE 3 ML AMPUL.NEB IH SCH ×3 (04:36→14:47)
[2022-05-20] MEDS: FUROSEMIDE 20 MG/2 ML INJ IV SCH (05:03)
[2022-05-20] MEDS: methylPREDNISolone Sod Succinate 40 MG/1 ML INJ IV SCH (05:03)
[2022-05-20 06:00] LABS: Calcium 7.6 mg/dL (8.4-10.2)
[2022-05-20] MEDS: INSULIN LISPRO 100 UNIT/ML SUB-Q SCH ×2 (07:30→11:42)
[2022-05-20 08:19] VITALS: BP 104/69
[2022-05-20] MEDS: METOPROLOL TARTRATE 100 MG TAB PO SCH (08:44)
[2022-05-20] MEDS: TOCOPHEROL 200 UNIT CAP PO SCH (09:01)
[2022-05-20] MEDS: CYANOCOBALAMIN (VIT B-12) 1000 MCG TAB PO SCH (09:01)
[2022-05-20] MEDS: CHOLECALCIFEROL (VIT D3) 1000 UNIT (25 mcg) TAB PO SCH (09:01)
[2022-05-20] MEDS: APIXABAN 5 MG TAB PO SCH (09:01)
[2022-05-20] MEDS: CLOPIDOGREL 75 MG TAB PO SCH (09:01)
[2022-05-20] MEDS: MULTIVITAMINS,THER W-MINERALS TAB PO SCH (09:01)
[2022-05-20] MEDS: oxyCODONE /ACETAMINOPHEN 5-325MG TAB PO PRN (09:07)
--- NOTE | 2022-05-20 11:55 | Progress Note ---
Assessment and Plan - Patient Problems (1) Paroxysmal atrial flutter Current Visit: Yes Status: Acute Plan to address problem: Patient presents with another episode of recurrent, symptomatic atrial flutter fibrillation. Symptoms has resolved since she has reverted back to a stable sinus rhythm. We will continue her rhythm control therapy with amiodarone, and oral anticoagulation with Eliquis. Otherwise, patient is stable for follow-up with her primary furnace combination analyst Dr. Slaughter. (2) Takotsubo syndrome Current Visit: No Status: Acute Plan to address problem: Patient presented in February 2022 with acute coronary syndrome, inferolateral ST elevation on the ECG, cardiac catheterization on review showed no fixed coronary lesions, slow flow down the left coronary system, and an LV gram consistent with Takotsubo syndrome. Patient is doing well on medical therapy, LV ejection fraction was 45 to 50%, and should be followed in the outpatient setting on optimal medical therapy. Subjective Date of service: 05/20/22 Principal diagnosis: Atrial fibrillation and flutter Interval history: Patient has no new cardiac complaints, her chest pain, shortness of breath and palpitations have resolved since she reverted to a stable sinus rhythm. Today, there is stable sinus rhythm at 63. Objective Vital Signs Temp Pulse Pulse Resp Resp BP Pulse Ox 05/20/22 09:08 98 05/20/22 09:07 66 18 05/20/22 07:27 97.9 F 60 18 104/69 93 05/20/22 03:41 57 L 05/20/22 03:30 98.0 F 59 L 18 91/61 96 05/20/22 02:00 60 18 05/20/22 00:52 56 L 05/19/22 23:33 98.2 F 58 L 19 94/62 100 05/19/22 22:00 26 H 97 05/19/22 21:34 96 05/19/22 21:30 65 20 05/19/22 20:40 63 05/19/22 19:36 97.5 F L 64 19 98/66 99 05/19/22 17:55 68 100/67 05/19/22 16:08 98.1 F 62 18 100/67 99 05/19/22 14:00 63 18 - Physical Examination General: No Apparent Distress HEENT: Positive: PERRL Neck: Positive: neck supple Cardiac: Positive: Reg Rate and Rhythm Lungs: Positive: Decreased Breath Sounds Neuro: Positive: Grossly Intact Abdomen: Positive: Soft Skin: Positive: Clear Extremities: Absent: edema - Labs and Meds Comprehensive Metabolic Panel 05/20/22 05/20/22 Range/Units 05:11 05:11 Sodium 138 (137-145) mmol/L Potassium 3.7 (3.6-5.0) mmol/L Chloride 97.5 L (98-107) mmol/L Carbon Dioxide 29 D (22-30) mmol/L BUN 36 H (7-17) mg/dL Creatinine 1.4 H 1.4 H (0.6-1.2) mg/dL Glucose 221 H (65-100) mg/dL Calcium 7.6 L (8.4-10.2) mg/dL
--- NOTE | 2022-05-20 15:42 | Discharge Summary ---
Providers - Providers Date of Admission: 05/17/22 13:34 Date of discharge: 05/20/22 Attending physician: MARTY BROUSSARD 05/17/22 17:04 Consult to Physician [CONS] Routine Comment: Consulting Provider: ALEXEY MCGEE Physician Instructions: Reason For Exam: chf/ a fib Primary care physician: ROLL PANNER Hospitalization Condition: Stable Hospital course: --Acute hypoxic respiratory failure Likely due to underlying asthma exacerbation and CHF exacerbation Placed on schedule Solu-Medrol, nebulizer breathing treatment and IV diuresis Wean off O2 as tolerated, -- Acute on chronic systolic CHF (congestive heart failure) EF 45 to 50% -- h/o Takotsubo syndrome Strict I's/O, monitor urine output every shift, daily weight, afterload reduction, diuretic therapy, afterload reduction, blood pressure control, supplemental oxygen, pulse oximetry, diuretic therapy, cardiology team consulted. --Leukocytosis, likely stress-induced and due to steroid Follow clinically, patient without any fever , CXR w/o infiltrates -- Atrial fibrillation with RVR Rate control, amiodarone drip, cardiology team consulted. Further care and evaluation as per cardiology team recommendations. Continue therapeutic anticoagulation with Eliquis. -- Obesity hypoventilation syndrome Balanced diet, increase physical activity discharge, outpatient pulmonary follow-up for sleep study. -- Hypertension Monitor blood pressure every shift, continue medical management. -- Hyperlipidemia Low-cholesterol diet, statin therapy, supportive care. --Hyperkalemia, likely due to declining renal function, repeat BMP --Diabetes mellitus Consistent carbohydrate diet, Accu-Chek, insulin protocol, hypoglycemia protocol. Hold metformin in the setting of DANIEL --DANIEL, likely cardiorenal syndrome Diabetes carefully, monitor renal function If continue to get worse need to nephrology consult -- DVT prophylaxis SCDs bilateral lower extremities while in bed -- Advance care planning Disease education data, care plan discussed, diagnoses discussed, prognosis discussed, patient is full code. Patient knowledges understanding and agreement with care plan, +30 minutes. -- Preventative health care Patient counseled regarding risk factor reduction, balanced diet, increase physical activity discharge, outpatient follow-up with primary care physician for all age and risk factor appropriate screening test. +30 minutes. Daily clinical course: 05/18/22: Continue diuresis, monitor renal function, add Solu-Medrol 40 mg Q8 8 hours, add scheduled breathing treatment. Monitor BMP 05/19/22: Creatinine 1.4 today, continue gentle diuresis, continue to monitor renal function. Respiratory status slightly improved. Still has significant wheezing. Continue scheduled nebulizer breathing treatment and empiric steroid. 05/20/22: O2 sat 95% on room air. Renal function stable. Patient clinically s table and wants to go home. Will discharge patient with tapering dose of steroid, nebs and outpatient home medications. Disposition: 30 STILL A PATIENT Final Discharge Diagnosis (Prints w/discharge instructions): -- Acute hypoxic respiratory failure. -- Acute asthma exacerbation. -- Acute on chronic CHF. -- Paroxysmal atrial flutter/atrial fib. -- Obesity hypoventilation syndrome. -- Diabetes mellitus type 2. -- DANIEL with hyperkalemia likely due to cardiorenal syndrome Time spent for discharge: 34 minutes Core Measure Documentation - Palliative Care Palliative Care/ Comfort Measures: Not Applicable - Core Measures Any of the following diagnoses?: heart failure - Heart Failure Discharge Requirements CHRISTINA/ARB for LVSD if EF <40%: No Reason for no CHRISTINA/ARB: Hyperkalemia Beta lj at discharge: Yes Exam - Constitutional Vitals: Temp Pulse Resp BP Pulse Ox 97.9 F 95 H 20 104/69 96 05/20/22 07:27 05/20/22 14:45 05/20/22 14:45 05/20/22 07:27 05/20/22 14:45 Plan Activity: advance as tolerated Weight Bearing Status: Weight Bear as Tolerated Diet: low fat, low salt, diabetic Follow up with: PRIMARY CAREMD [Primary Care Provider] - 3-5 Days DAVION HUBBARD MD [Staff Physician] - 7 Days Prescriptions: Prednisone [predniSONE 5 mg (6-Day Pack, 21 Tabs)] 5 mg PO .TAPER 6 Days #1 each
[2022-05-20] MEDS ORDERED: methylPREDNISolone Sod Succinate 40 MG/1 ML INJ IV SCH (22:00)
== END 2022-05-20 17:10 | disposition home or self-care (01) | DRG 291 ==
LOC: ED 05:25 → 4A 13:34
PROVIDERS: ADMIT Internal Medicine; ATTEND Internal Medicine
DX: I13.0 Hypertensive heart and chronic kidney disease with heart failure and stage 1 through stage 4 chronic kidney disease, or unspecified chronic kidney disease (principal); I50.23 Acute on chronic systolic (congestive) heart failure; J96.01 Acute respiratory failure with hypoxia; E66.2 Morbid (severe) obesity with alveolar hypoventilation; I48.20 Chronic atrial fibrillation, unspecified; I48.92 Unspecified atrial flutter; N17.9 Acute kidney failure, unspecified; Z68.39 Body mass index [BMI] 39.0-39.9, adult; F31.9 Bipolar disorder, unspecified; I25.2 Old myocardial infarction; J45.909 Unspecified asthma, uncomplicated; E88.81 Metabolic syndrome and other insulin resistance; E78.2 Mixed hyperlipidemia; E87.5 Hyperkalemia; D72.829 Elevated white blood cell count, unspecified; T38.0X5A Adverse effect of glucocorticoids and synthetic analogues, initial encounter; Y92.89 Other specified places as the place of occurrence of the external cause; E11.22 Type 2 diabetes mellitus with diabetic chronic kidney disease; N18.9 Chronic kidney disease, unspecified; Z83.3 Family history of diabetes mellitus; Z88.5 Allergy status to narcotic agent; Z79.899 Other long term (current) drug therapy; Z79.84 Long term (current) use of oral hypoglycemic drugs; Z79.01 Long term (current) use of anticoagulants; Z88.8 Allergy status to other drugs, medicaments and biological substances; Z82.49 Family history of ischemic heart disease and other diseases of the circulatory system
CPT/HCPCS: 36415; 71045; 80048; 80053; 80307; 81001; 82010; 82550; 82553; 82565; 82962; 83690; 83735; 83880; 84132; 84484; 85025; 85027; 85610; 85730; 86140; 93005; 94640; 94644; 94760; 96374; 96375; 99285; G0378; J3490; J7060; Q9967; J0282; J0610; J1170; J1815; J1940; J2920